=== PATIENT | male | born 1965 | race Two or more races ===

== ENCOUNTER → 2016-11-30 | Outpatient (REF) | payer MEDICARE | LOC: M SFHCCAPE 09:37 | PROVIDERS: ATTEND Physician Assistant | DX: J02.0 Streptococcal pharyngitis (principal) | CPT/HCPCS: 87070; G0463 ==

== ENCOUNTER → 2016-12-02 | Outpatient (REF) | payer MEDICARE ==
[2016-12-02 18:10] LABS: BASO # 0.1 10^3/uL (0.0-0.2); BASO % 0.7 % (0.0-1.0); EOS # 0.2 10^3/uL (0.0-0.50); EOS % 2.2 % (0.0-3.0); IMMATURE GRANULOCYTE % 1.1 % (0-0); LYMPH % 27.2 % (24.0-44.0); MEAN CORPUSCULAR HEMOGLOBIN 29.1 pg (27.0-33.0); MEAN CORPUSCULAR HGB CONC 32.3 g/dl (32.0-36.5); MONO # 0.7 10^3/uL (0.0-0.8); MONO % 6.1 % (0.0-5.0); NEUTROPHILS # 6.9 10^3/uL (1.8-7.7); NEUTROPHILS % 62.7 % (36.0-66.0); PLATELET COUNT, AUTOMATED 366 10^3/uL (150-450); RED CELL DISTRIBUTION WIDTH 12.3 % (11.5-14.5)
[2016-12-02 18:11] LABS: ALBUMIN 3.2 GM/DL (3.2-5.2); ALBUMIN/GLOBULIN RATIO 0.84 (1.00-1.93); ALKALINE PHOSPHATASE 78 U/L (45-117); ALT/SGPT 26 U/L (12-78); ANION GAP 7 MEQ/L (8-16); AST/SGOT 8 U/L (15-37); BILIRUBIN,TOTAL 0.3 MG/DL (0.2-1.0); BLOOD UREA NITROGEN 18 MG/DL (7-18); CALCIUM LEVEL 8.7 MG/DL (8.5-10.1); CARBON DIOXIDE LEVEL 28 MEQ/L (21-32); CHLORIDE LEVEL 104 MEQ/L (98-107); CHOLESTEROL LEVEL 143 MG/DL (<200); CREATININE FOR GFR 0.86 MG/DL (0.70-1.30); FREE T4 1.18 NG/DL (0.76-1.46); GLOMERULAR FILTRATION RATE > 60.0 (>56); GLUCOSE, FASTING 95 MG/DL (70-105); POTASSIUM SERUM 4.5 MEQ/L (3.5-5.1); SODIUM LEVEL 139 MEQ/L (136-145); TRIGLYCERIDES LEVEL 129 MG/DL (<150)
[2016-12-02 18:19] LABS: ADD MORPHOLOGY? NO
== END ==
LOC: M SFHCCAPE 07:14
PROVIDERS: ATTEND Physician Assistant
DX: I10 Essential (primary) hypertension (principal); R73.01 Impaired fasting glucose; Z12.5 Encounter for screening for malignant neoplasm of prostate; Z80.42 Family history of malignant neoplasm of prostate
CPT/HCPCS: 36415; 80053; 80061; 83036; 84439; 84443; 85025; G0103

== ENCOUNTER → 2016-12-07 | Outpatient (REF) | payer MEDICARE ==
[2016-12-07 18:23] LABS: BASO # 0.1 10^3/uL (0.0-0.2); BASO % 0.9 % (0.0-1.0); EOS # 0.2 10^3/uL (0.0-0.50); EOS % 2.1 % (0.0-3.0); IMMATURE GRANULOCYTE % 0.4 % (0-0); LYMPH # 2.7 10^3/uL (1.5-4.5); LYMPH % 25.2 % (24.0-44.0); MEAN CORPUSCULAR HEMOGLOBIN 29.1 pg (27.0-33.0); MEAN CORPUSCULAR HGB CONC 32.7 g/dl (32.0-36.5); MONO # 0.8 10^3/uL (0.0-0.8); MONO % 7.5 % (0.0-5.0); NEUTROPHILS # 6.9 10^3/uL (1.8-7.7); NEUTROPHILS % 63.9 % (36.0-66.0); PLATELET COUNT, AUTOMATED 414 10^3/uL (150-450); RED CELL DISTRIBUTION WIDTH 12.6 % (11.5-14.5); WHITE BLOOD COUNT 10.8 10^3/uL (4.0-10.0)
[2016-12-07 18:58] LABS: VITAMIN B12 LEVEL 358 PG/ML
[2016-12-07 18:59] LABS: FOLATE 15.4 NG/ML
[2016-12-08 08:43] LABS: CONTROL LINE MONO RF C INT CTR LINE PRESENT
== END ==
LOC: M SFHCCAPE 08:36
PROVIDERS: ATTEND Physician Assistant
DX: R53.83 Other fatigue (principal); R05 Cough; I10 Essential (primary) hypertension; F17.210 Nicotine dependence, cigarettes, uncomplicated; Z79.899 Other long term (current) drug therapy
CPT/HCPCS: 82306; 82607; 82746; 85025; 86308; 86663; 86664; 86665; G0463

== ENCOUNTER → 2017-04-05 | Outpatient (CLI) | payer MEDICARE | LOC: M CLY 09:54 | DX: M25.512 Pain in left shoulder (principal) | CPT/HCPCS: 73030; G0463 ==

== ENCOUNTER 2018-03-16 02:49 | Inpatient (IN) | payer MEDICARE ==
[~2018-03-16] VITALS: Ht 177.8 cm; Wt 109.2 kg
[2018-03-16] MEDS ORDERED: lisinopril (03:15)
[2018-03-16] MEDS ORDERED: plavix (03:15)
[2018-03-16 03:28] LABS: BASO # 0.1 10^3/uL (0.0-0.2); BASO % 0.4 % (0.0-1.0); EOS # 0.2 10^3/uL (0.0-0.50); EOS % 0.8 % (0.0-3.0); HEMATOCRIT 45.6 % (42.0-52.0); HEMOGLOBIN 15.6 g/dl (13.5-17.5); LYMPH # 1.6 10^3/uL (1.5-4.5); LYMPH % 8.3 % (24.0-44.0); MEAN CORPUSCULAR HEMOGLOBIN 30.1 pg (27.0-33.0); MEAN CORPUSCULAR HGB CONC 34.2 g/dl (32.0-36.5); MONO # 0.9 10^3/uL (0.0-0.8); MONO % 4.5 % (0.0-5.0); NEUTROPHILS % 85.5 % (36.0-66.0); PLATELET COUNT, AUTOMATED 247 10^3/uL (150-450); RED BLOOD COUNT 5.18 10^6/uL (4.30-6.10); WHITE BLOOD COUNT 19.8 10^3/uL (4.0-10.0)
[2018-03-16] MEDS ORDERED: NS 1,000 ML IV ONE (04:00)
[2018-03-16] MEDS ORDERED: METOCLOPRAMIDE INJ 10MG/2ML VIAL (J2765) IV ONE (04:00)
[2018-03-16] MEDS ORDERED: HYDROMORPHONE HCL 0.5 MG/ 0.5 ML SYRINGE (J1170 PER 1) IV ONE ×2 (04:00→05:30)
[2018-03-16 04:02] LABS: ALBUMIN 3.9 GM/DL (3.2-5.2); ALT/SGPT 27 U/L (12-78); BILIRUBIN,DIRECT 0.2 MG/DL (0.0-0.2); BILIRUBIN,TOTAL 0.7 MG/DL (0.2-1.0); BLOOD UREA NITROGEN 12 MG/DL (7-18); CALCIUM LEVEL 8.6 MG/DL (8.5-10.1); CARBON DIOXIDE LEVEL 26 MEQ/L (21-32); CHLORIDE LEVEL 101 MEQ/L (98-107); CREATININE FOR GFR 0.91 MG/DL (0.70-1.30); GLOMERULAR FILTRATION RATE > 60.0 (>56); GLUCOSE, FASTING 203 MG/DL (70-100); LIPASE 79 U/L (73-393); POTASSIUM SERUM 4.1 MEQ/L (3.5-5.1); SODIUM LEVEL 136 MEQ/L (136-145); TOTAL PROTEIN 6.7 GM/DL (6.4-8.2)
[2018-03-16] MEDS: GASTROGRAFIN SOLUTION 30ML PO SCH ×2 (05:20→05:50)
--- NOTE | 2018-03-16 07:30 | REPVR ---
EXAM: CT Abdomen and Pelvis Without Contrast EXAM DATE/TIME: 03/16/2018 4:20 AM CLINICAL HISTORY: 53 years old, male; Pain; Abdominal pain; Generalized; Additional info: Hernia TECHNIQUE: Axial computed tomography images of the abdomen and pelvis without contrast. All CT scans at this facility use at least one of these dose optimization techniques: automated exposure control; mA and/or kV adjustment per patient size (includes targeted exams where dose is matched to clinical indication); or iterative reconstruction. Coronal and sagittal reformatted images were created and reviewed. COMPARISON: No relevant prior studies available. FINDINGS: Lower thorax: Mild bilateral lower lobe dependent atelectasis and question of minimal infiltrates. There is minimal fibro-atelectatic change in the lingula and right middle lobe. ABDOMEN: Liver: Normal. No mass. Gallbladder and bile ducts: Normal. No calcified stones. No ductal dilation. Pancreas: Normal. No ductal dilation. Spleen: Normal. No splenomegaly. Adrenals: Normal. No mass. Kidneys and ureters: There is a right renal cyst measuring 16 mm. Stomach and bowel: There is colonic diverticulosis without evidence of diverticulitis. Anastomotic suture ring in the distal sigmoid. Mild distention of mid abdominal small bowel segments with normal distal ileum consistent with small bowel obstruction. There is an abrupt point of transition in the anterior right lateral abdomen and is anterior to the distal ascending colon. There is stool in material within the lumen of the preceding small bowel. Appendix: A normal appendix is seen. PELVIS: Bladder: Unremarkable as visualized. Reproductive: Unremarkable as visualized. ABDOMEN and PELVIS: Intraperitoneal space: Trace perihepatic ascites. Bones/joints: Fusion of the left SI joint. Soft tissues: Status post ventral wall hernia repair with mesh centered in the umbilicus. Vasculature: Incidental note of an accessory retroaortic left renal vein. There is minimal atherosclerotic calcification of the abdominal aorta. Lymph nodes: Normal. No enlarged lymph nodes. IMPRESSION: 1. Small bowel obstruction with a point of transition in the lateral right abdomen adjacent to the peritoneal surface anterior to the distal ascending colon or hepatic flexure and is likely an adhesion. 2. Mild bilateral lower lobe dependent atelectasis and question of minimal infiltrates. 3. Status post ventral wall hernia repair with mesh. 4. Trace perihepatic ascites. 5. Colonic diverticulosis without diverticulitis. Electronically signed by: Pete Nolasco On 03/16/2018 07:30:04 AM
[2018-03-16] MEDS ORDERED: NS 1,000 ML IV SCH (08:00)
[2018-03-16] MEDS ORDERED: ONDANSETRON 4MG/2ML VIAL (J2405) IV ONE (08:15)
[2018-03-16] MEDS ORDERED: HYDROMORPHONE HCL 0.5 MG/ 0.5 ML SYRINGE (J1170 PER 1) IV PRN (08:15)
[2018-03-16] MEDS ORDERED: NITR4TASL SL (08:17)
[2018-03-16] MEDS ORDERED: CLOP75TA2 PO (08:17)
[2018-03-16] MEDS ORDERED: ATOR40TA75 PO (08:17)
[2018-03-16] MEDS ORDERED: LISI-542 PO (08:17)
[2018-03-16] MEDS ORDERED: METO1TAB87 PO (08:17)
[2018-03-16] MEDS ORDERED: ASPI81CH32 PO (08:17)
[2018-03-16] MEDS ORDERED: APAP325T4 PO (08:17)
[2018-03-16] MEDS ORDERED: PROMETHAZINE INJ 25 MG/ML VIAL (J2550) IV PRN (09:15)
[2018-03-16] MEDS ORDERED: ONDANSETRON 4MG/2ML VIAL (J2405) IV PRN (09:15)
[2018-03-16] MEDS ORDERED: MORPHINE 4 MG/ML 1ML VIAL/SYRINGE (J2270) IV PRN (09:15)
[2018-03-16] MEDS ORDERED: METOCLOPRAMIDE INJ 10MG/2ML VIAL (J2765) IV PRN (09:15)
--- NOTE | 2018-03-16 09:51 | CR.PDOC ---
General Date of Consultation: Mar 16, 2018 Referring Provider: Brandt Nunes Jr Consultation REASON FOR CONSULTATION/CHIEF COMPLAINT: Abdominal pain/management medical co- morbidities HISTORY OF PRESENT ILLNESS: 53 yo male presents for 1 day history of mid-epigastric abdominal pain started yesterday around 2pm. Describes his pain as dull, non-radiating, no clear modifying factors. Patient states he had an GA last month. He presented to [facility] for chest pain, transferred to [facility] where he had one stent placed. He is in the process of establishing care with Dr. Matson. He endorses multiple hernia repairs with Dr. Garcia, in addition to diverticulitis s/p partial colectomy with ostomy and subsequent reversal. He states he is a smoker, 1ppd >35 years. ALLERGIES: Please see below. HOME MEDICATIONS: Please see below. PAST MEDICAL HISTORY: 1. CAD/GA s/p stent February 2018 2. diverticulitis 3. Nicotine abuse PAST SURGICAL HISTORY: 1. Multiple hernia repairs 2. partial colectomy and colostomy s/p reversal REVIEW OF SYSTEMS: As per HPI. PHYSICAL EXAMINATION: VITAL SIGNS: Please see below. GENERAL APPEARANCE: NAD, lying comfortably in bed HEENT: NC/AT, EOMI, PERRL RESPIRATORY: CTA B/L CARDIOVASCULAR: +S1S2, RRR ABDOMEN: soft, +BS, mid-epigastric/RLQ tenderness, well healed midline surgical scar EXTREMITIES: no edema NEUROLOGICAL: no gross focal deficits PSYCHIATRIC: AAOx3 LABORATORY DATA: Please see below. ASSESSMENT/PLAN: 53 yo male for 1 day history of abdominal pain with PMHx of GA s/p PCI one month ago #abd pain/SBO - as per primary team #CAD/GA - PCI was one month ago - continue ASA/plavix/statin/BB - states he will be establishing care with Dr. Matson #nicotine abuse - counselling provided at bedside - he is interested in nicotine replacement therapy #DVT prophylaxis - mechanical Vital Signs/I&O Vital Signs Date Time Temp Pulse Resp B/P (MAP) Pulse Ox O2 Delivery O2 Flow Rate FiO2 03/16/18 08:15 83 92 Room Air 03/16/18 08:10 18 03/16/18 08:00 167/92 (117) 03/16/18 02:50 97.0 Laboratory Data Labs 24H Laboratory Tests 2 03/16/18 03:22: Immature Granulocyte % (Auto) 0.5, White Blood Count 19.8H, Red Blood Count 5.18 , Hemoglobin 15.6, Hematocrit 45.6, Mean Corpuscular Volume 88.0, Mean Corpuscular Hemoglobin 30.1, Mean Corpuscular Hemoglobin Concent 34.2, Red Cell Distribution Width 12.5, Platelet Count 247, Neutrophils (%) (Auto) 85.5H, Lymphocytes (%) (Auto) 8.3L, Monocytes (%) (Auto) 4.5, Eosinophils (%) (Auto) 0.8, Basophils (%) (Auto) 0.4, Neutrophils # (Auto) 17.0H, Lymphocytes # (Auto) 1.6, Monocytes # (Auto) 0.9H, Eosinophils # (Auto) 0.2, Basophils # (Auto) 0.1, Nucleated Red Blood Cells % (auto) 0.0, Anion Gap 9, Glomerular Filtration Rate > 60.0, Calcium Level 8.6, Aspartate Amino Transf (AST/SGOT) 16, Alanine Aminotransferase (ALT/SGPT) 27, Alkaline Phosphatase 105, Total Bilirubin 0.7, Direct Bilirubin 0.2, Total Protein 6.7, Albumin 3.9, Albumin/Globulin Ratio 1.39, Lipase 79 CBC/BMP Laboratory Tests 03/16/18 03:22 Red Blood Count 5.18, Mean Corpuscular Volume 88.0, Mean Corpuscular Hemoglobin 30.1, Mean Corpuscular Hemoglobin Concent 34.2, Red Cell Distribution Width 12.5, Neutrophils (%) (Auto) 85.5 H, Lymphocytes (%) (Auto) 8.3 L, Monocytes (%) (Auto) 4.5, Eosinophils (%) (Auto) 0.8, Basophils (%) (Auto) 0.4, Neutrophils # (Auto) 17.0 H, Lymphocytes # (Auto) 1.6, Monocytes # (Auto) 0.9 H, Eosinophils # (Auto) 0.2, Basophils # (Auto) 0.1 Allergies Coded Allergies: TAPE (Verified Allergy, Intermediate, PAPER TAPE-BLISTERS,RASH, 05/21/06) Povidone (Verified Allergy, Mild, RAISED SPIRAL SHAPED WHEAL, 06/06/12) Home Medications Scheduled (Aspirin 81 Low Dose) 81 Mg Chw, 81 MG PO DAILY, (Reported) Atorvastatin Calcium (Atorvastatin Calcium) 40 Mg Tab, 40 MG PO QHS, (Reported) Clopidogrel Bisulfate (Clopidogrel) 75 Mg Tab, 75 MG PO DAILY, (Reported) Lisinopril (Lisinopril) 5 Mg Tab, 5 MG PO DAILY, (Reported) Metoprolol Tartrate (Metoprolol Tartrate) 25 Mg Tab, 25 MG PO BID, (Reported) Scheduled PRN Acetaminophen (Apap) 325 Mg Tab, 325 MG PO Q4H PRN for PAIN, (Reported) Nitroglycerin (Nitrostat) 0.4 Mg Subl, 0.4 MG SL Q5MP PRN for CHEST PAIN, (Reported) SHELLY PATIÑO MD Mar 16, 2018 09:51
[2018-03-16 11:05] LABS: CPK CREATINE PHOSPHOKINASE 88 U/L (39-308); MB/CK RELATIVE INDEX 1.59 (< OR =4); TROPONIN I < 0.02 NG/ML (< 0.10)
[2018-03-16 11:30] VITALS: BP 189/111
[2018-03-16] MEDS: ASPIRIN 81 MG CHEW TABLET PO SCH (12:05)
[2018-03-16] MEDS: PANTOPRAZOLE 40MG INJ (PROTONIX) (C9113) IV SCH (12:05)
[2018-03-16] MEDS: NICOTINE 21MG/24HR 1 EA TRANSDERMAL TD SCH (12:06)
[2018-03-16] MEDS: D5W/LR 1,000 ML IV SCH ×2 (12:06→20:44)
[2018-03-16 12:30] VITALS: BP 128/58
[2018-03-16] MEDS: METOPROLOL TART 25 MG TABLET PO SCH ×2 (13:29→20:42)
[2018-03-16] MEDS: CLOPIDOGREL 75 MG TAB PO SCH (13:30)
[2018-03-16 16:00] VITALS: BP 126/80
[2018-03-16 20:00] VITALS: BP 130/60
[2018-03-16] MEDS ORDERED: ATORVASTATIN 20 MG TAB PO SCH (21:00)
[2018-03-17] VITALS: BP 129/58
[2018-03-17] MEDS: D5W/LR 1,000 ML IV SCH ×2 (03:18→10:27)
[2018-03-17 04:15] VITALS: BP 129/65
[2018-03-17 06:53] LABS: HEMATOCRIT 41.5 % (42.0-52.0); HEMOGLOBIN 13.9 g/dl (13.5-17.5); MEAN CORPUSCULAR HEMOGLOBIN 30.1 pg (27.0-33.0); MEAN CORPUSCULAR HGB CONC 33.5 g/dl (32.0-36.5); MEAN CORPUSCULAR VOLUME 89.8 fl (80.0-96.0); PLATELET COUNT, AUTOMATED 208 10^3/uL (150-450); RED BLOOD COUNT 4.62 10^6/uL (4.30-6.10); WHITE BLOOD COUNT 9.9 10^3/uL (4.0-10.0)
[2018-03-17 07:17] LABS: BLOOD UREA NITROGEN 9 MG/DL (7-18); CALCIUM LEVEL 8.1 MG/DL (8.5-10.1); CARBON DIOXIDE LEVEL 26 MEQ/L (21-32); CHLORIDE LEVEL 107 MEQ/L (98-107); CREATININE FOR GFR 0.79 MG/DL (0.70-1.30); GLOMERULAR FILTRATION RATE > 60.0 (>56); GLUCOSE, FASTING 143 MG/DL (70-100); POTASSIUM SERUM 3.9 MEQ/L (3.5-5.1); SODIUM LEVEL 139 MEQ/L (136-145)
[2018-03-17 08:00] VITALS: BP 145/88
--- NOTE | 2018-03-17 08:59 | IPNPDOC ---
Text Note Date of Service The patient was seen on 03/17/18. NOTE Subjective: Patient seen and examined at bedside. No acute overnight events reported. Patient denies abdominal pain. Objective: PHYSICAL EXAMINATION: VITAL SIGNS: Please see below. GENERAL APPEARANCE: NAD, lying comfortably in bed HEENT: NC/AT, EOMI, PERRL, NG tube in place - draining serosanguineous fluid RESPIRATORY: CTA B/L CARDIOVASCULAR: +S1S2, RRR ABDOMEN: soft, +BS, mid-epigastric/RLQ tenderness, well healed midline surgical scar EXTREMITIES: no edema NEUROLOGICAL: no gross focal deficits PSYCHIATRIC: AAOx3 ASSESSMENT/PLAN: 53 yo male for 1 day history of abdominal pain with PMHx of HI s/p PCI one month ago #abd pain/SBO - as per primary team #CAD/HI - PCI was one month ago - continue ASA/plavix/statin/BB - states he will be establishing care with Dr. Matson #nicotine abuse - counselling provided at bedside - he is interested in nicotine replacement therapy #DVT prophylaxis - mechanical VS,Fishbone, I+O VS, Fishbone, I+O Laboratory Tests 03/17/18 06:24 Red Blood Count 4.62, Mean Corpuscular Volume 89.8, Mean Corpuscular Hemoglobin 30.1, Mean Corpuscular Hemoglobin Concent 33.5, Red Cell Distribution Width 12.7, Calcium Level 8.1 L Vital Signs Date Time Temp Pulse Resp B/P (MAP) Pulse Ox O2 Delivery O2 Flow Rate FiO2 03/17/18 04:15 98.4 77 20 129/65 (86) 98 Room Air 03/16/18 10:52 2.0 I&O- Last 24 Hours up to 6 AM 03/17/18 05:59 Intake Total 330 ml Output Total 1525 ml Balance -1195 ml SHELLY PATIÑO MD Mar 17, 2018 08:59
[2018-03-17] MEDS ORDERED: LISINOPRIL 5 MG TAB PO SCH (09:00)
--- NOTE | 2018-03-17 09:50 | REP ---
ABDOMEN SERIES: Four views. HISTORY: Resolve small bowel obstruction. Comparison CT study March 16, 2018. FINDINGS: Upright chest radiograph shows a nasogastric tube in place terminating in the fundus of the stomach. The lungs are somewhat hyperinflated but clear. No free subdiaphragmatic air is seen. Supine and erect views of the abdomen show oral CT contrast throughout a nondistended colon. No dilated small or large bowel loops are seen. There is some prostate calcifications noted. Flank stripes and psoas margins are intact. No significant air fluid level. IMPRESSION: Normal bowel gas pattern. Orally administered CT contrast has passed into the colon. No dilated bowel loops seen. NG tube in the gastric fundus. Electronically Signed by Scottie Chambers MD 03/17/2018 10:16 A
[2018-03-17] MEDS: PANTOPRAZOLE 40MG INJ (PROTONIX) (C9113) IV SCH (10:02)
[2018-03-17] MEDS: NICOTINE 21MG/24HR 1 EA TRANSDERMAL TD SCH (10:02)
[2018-03-17] MEDS: ASPIRIN 81 MG CHEW TABLET PO SCH (10:02)
[2018-03-17 10:03] VITALS: BP 157/82
[2018-03-17] MEDS: METOPROLOL TART 25 MG TABLET PO SCH (10:03)
[2018-03-17] MEDS: CLOPIDOGREL 75 MG TAB PO SCH (10:04)
[2018-03-17 12:00] VITALS: BP 136/79
--- NOTE | 2018-04-01 16:42 | DSES ---
DATE OF ADMISSION: 03/16/2018 DATE OF DISCHARGE: 03/17/2018 PRINCIPAL DIAGNOSIS: Small-bowel obstruction. ASSOCIATED DIAGNOSIS: History of coronary artery disease with myocardial infarction and status post stenting one month ago, and on anticoagulation for this. BRIEF HISTORY OF PRESENT ILLNESS: The patient is a 53-year-old male with a one-day history of severe midepigastric pain radiating to his back with nausea, vomiting, and with no bowel movement. He has had numerous multiple hernia repairs in the past, had a partial colectomy and colostomy, has had this reversed as well in the past, and presents with a classic presentation of a small bowel obstruction on his x-rays. HOSPITAL COURSE SUMMARY: The patient was admitted with the above diagnosis and nasogastric (NG) tube was inserted and improved essentially within 12 hours. His NG tube was removed. He was started on a clear liquid diet and advanced his diet. Essentially, he was progressed rather quickly given the fact that he was a nonoperative candidate given his recent stenting and need for staying on anticoagulation. He was discharged home with instructions to followup with his primary care provider and with Dr. Garcia in 2-3 weeks. DISCHARGE MEDICATIONS: Include his aspirin, atorvastatin, Plavix, lisinopril, metoprolol and nitroglycerin.
== END 2018-03-17 15:55 | disposition home or self-care (01) | DRG 390 ==
LOC: M ED 02:49 → M ED INP 09:05 → M PED 11:50
PROVIDERS: ADMIT Surgery; ATTEND Surgery
DX: K56.50 Intestinal adhesions [bands], unspecified as to partial versus complete obstruction (principal); I25.10 Atherosclerotic heart disease of native coronary artery without angina pectoris; I25.2 Old myocardial infarction; F17.290 Nicotine dependence, other tobacco product, uncomplicated; Z90.49 Acquired absence of other specified parts of digestive tract; Z88.8 Allergy status to other drugs, medicaments and biological substances; Z91.048 Other nonmedicinal substance allergy status; Z79.899 Other long term (current) drug therapy

== ENCOUNTER → 2018-09-05 | Outpatient (REF) | payer MEDICARE ==
[~2018-09-05] MED LIST: APAP325T4 PO; ASPI81CH33 PO; ATOR40TA75 PO; CLOP75TA2 PO; LISI-542 PO; METO1TAB87 PO; NITR4TASL SL; lisinopril; plavix
[2018-09-05 17:38] LABS: ALBUMIN 3.9 GM/DL (3.2-5.2); ALT/SGPT 32 U/L (12-78); BILIRUBIN,TOTAL 0.4 MG/DL (0.2-1.0); BLOOD UREA NITROGEN 14 MG/DL (7-18); CALCIUM LEVEL 8.3 MG/DL (8.5-10.1); CARBON DIOXIDE LEVEL 28 MEQ/L (21-32); CHLORIDE LEVEL 107 MEQ/L (98-107); CHOLESTEROL LEVEL 95 MG/DL (<200); CHOLESTEROL RISK RATIO 2.794 (<5); CREATININE FOR GFR 0.82 MG/DL (0.70-1.30); GLOMERULAR FILTRATION RATE > 60.0 (>56); GLUCOSE, FASTING 125 MG/DL (70-100); HDL CHOLESTEROL 34 MG/DL (>40); LDL CHOLESTEROL 48 MG/DL (<100); NON-HDL-C 61 MG/DL; POTASSIUM SERUM 4.4 MEQ/L (3.5-5.1); SODIUM LEVEL 141 MEQ/L (136-145); TOTAL PROTEIN 6.6 GM/DL (6.4-8.2); TRIGLYCERIDES LEVEL 63 MG/DL (<150)
[2018-09-05 17:47] LABS: BASO # 0.1 10^3/uL (0.0-0.2); BASO % 0.7 % (0.0-1.0); EOS # 0.3 10^3/uL (0.0-0.50); EOS % 2.7 % (0.0-3.0); HEMATOCRIT 44.3 % (42.0-52.0); HEMOGLOBIN 14.6 g/dl (13.5-17.5); LYMPH # 2.4 10^3/uL (1.5-4.5); LYMPH % 22.1 % (24.0-44.0); MEAN CORPUSCULAR HEMOGLOBIN 31.1 pg (27.0-33.0); MEAN CORPUSCULAR VOLUME 94.3 fl (80.0-96.0); MONO # 0.8 10^3/uL (0.0-0.8); MONO % 6.9 % (0.0-5.0); NEUTROPHILS # 7.3 10^3/uL (1.8-7.7); NEUTROPHILS % 67.1 % (36.0-66.0); PLATELET COUNT, AUTOMATED 233 10^3/uL (150-450); WHITE BLOOD COUNT 10.9 10^3/uL (4.0-10.0)
[2018-09-05 17:59] LABS: APPEARANCE, URINE MANUAL TURBID (CLEAR); COLOR, URINE MANUAL YELLOW (YELLOW)
[2018-09-05 18:00] LABS: BILIRUBIN, URINE MANUAL NEGATIVE (NEGATIVE); BLOOD URINE MANUAL NEGATIVE (NEGATIVE); GLUCOSE, URINE (UA) MANUAL NEGATIVE (NEGATIVE); KETONE, URINE MANUAL NEGATIVE (NEGATIVE); LEUKOCYTE ESTERASE, URINE MAN NEGATIVE (NEGATIVE); NITRITE, URINE MANUAL NEGATIVE (NEGATIVE); PROTEIN, URINE MANUAL NEGATIVE (NEGATIVE); UROBILINOGEN, URINE MANUAL NORMAL (NORMAL)
[2018-09-05 19:26] LABS: RBC, URINE NONE SEEN /hpf (0-3); SQUAMOUS EPITHELIAL CELL URINE NONE SEEN /hpf (SMALL AMT); WBC, URINE 0-1 /hpf (0-3)
[2018-09-05 19:27] LABS: AMORPHOUS SEDIMENT, URINE LARGE AMOUNT (NEGATIVE); BACTERIA, URINE NONE SEEN; MUCUS, URINE SMALL AMOUNT (NEGATIVE)
[2018-09-05 19:28] LABS: HYALINE CAST, URINE NONE SEEN /lpf (0-1)
== END ==
LOC: M SFHCCAPE 09:43
PROVIDERS: ATTEND Physician Assistant
DX: R10.2 Pelvic and perineal pain (principal); I10 Essential (primary) hypertension; N50.812 Left testicular pain
CPT/HCPCS: 80053; 80061; 81000; 83036; 84443; 85025; 87086; G0103

== ENCOUNTER → 2018-09-13 | Outpatient (CLI) | payer MEDICARE ==
[~2018-09-13] MED LIST changes: +READI-CAT 2 As Ordered ONE
--- NOTE | 2018-09-13 16:24 | REP ---
Scrotal sonography: History: Left-sided testicular pain. Findings: There is a moderate left-sided hydrocele. A small amount of hydrocele fluid is visible on the right. There is a 7 mm cyst in the head of the epididymis on the left and a 15 mm cyst is seen in the head of the epididymis on the right. There is no evidence of intratesticular mass lesion on either side. Testicular Doppler flow is normal bilaterally. Resistive indices are 0.52 on the right and 0.54 on the left by Doppler. The right testis measures 40 x 26 x 33 mm. Left testicular dimensions are 37 x 28 x 29 mm. Impression: Bilateral hydroceles, left larger than right. Bilateral epididymal cysts, small on the left and 17 mm on the right. No intratesticular mass lesion is seen. Doppler flow is intact. Electronically Signed by Scottie Chambers MD 09/13/2018 04:59 P
--- NOTE | 2018-09-13 16:48 | REP ---
CT ABDOMEN AND PELVIS WITH ORAL CONTRAST, WITHOUT IV CONTRAST: TECHNIQUE: Axial contrast enhanced images from the lung bases to the pubic symphysis using 100 mL Isovue 370 intravenous contrast material with multiplanar reformations. Visualized lung bases demonstrate no infiltrate. The liver is grossly unremarkable as is the gallbladder. There is no definite biliary dilatation. The spleen, adrenals and pancreas are grossly unremarkable. There appear to be a few small cysts in the kidneys. No renal calculi are seen. There is no hydroureteronephrosis. There is no abdominal aortic aneurysm with mild atherosclerotic calcification. There is no adenopathy. There is no free air or free fluid. No bowel wall thickening is seen. Anterior abdominal wall mesh is noted. No pelvic mass is seen. Urinary bladder is grossly unremarkable. There are prostatic calcifications present. There are degenerative changes of the spine. IMPRESSION: No acute abnormalities as described above. Electronically Signed by Demetrio Hussein MD 09/15/2018 10:56 A
== END ==
LOC: M RAD 13:16
PROVIDERS: ATTEND Physician Assistant
DX: N43.3 Hydrocele, unspecified (principal); N50.3 Cyst of epididymis

== ENCOUNTER → 2019-02-15 | Outpatient (REF) | payer MEDICARE ==
[~2019-02-15] MED LIST changes: -READI-CAT 2 As Ordered ONE
== END ==
LOC: M SFHCCAPE 15:59
PROVIDERS: ATTEND Physician Assistant
DX: R76.8 Other specified abnormal immunological findings in serum (principal)

== ENCOUNTER → 2019-02-23 | Outpatient (REF) | payer MEDICARE | LOC: M SFHCCAPE 15:25 | PROVIDERS: ATTEND Physician Assistant | DX: L08.9 Local infection of the skin and subcutaneous tissue, unspecified (principal) | CPT/HCPCS: 87070; 87077; 87186; G0463 ==

== ENCOUNTER → 2019-04-01 | Outpatient (CLI) | payer MEDICARE ==
--- NOTE | 2019-04-01 12:32 | REP ---
RIGHT ANKLE COMPLETE: 04/01/2019. CLINICAL HISTORY: Followup ORIF bimalleolar fracture in January. FINDINGS: No prior studies available. Four views show the two lag screws in the medial malleolus into the distal tibial diametaphysis. Plate and multiple screws fixing a distal fibular fracture. There may also have been a posterior malleolar fracture which is healing in place. Subtalar joints intact. 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 No heel spurs. I do not see fracture lines in the tibia or fibula. IMPRESSION: 1. Status post ORIF with hardware in the distal fibula and medial malleolus. There may been a posterior malleolar fracture healing in place. Fracture lines are not visible in the distal tibia or fibula. 2. No other significant or acute finding. Electronically Signed by Juancarlos Tineo MD 04/01/2019 07:59 P
== END ==
LOC: M RAD 09:16
PROVIDERS: ATTEND Orthopaedic Surgery Sports Medicine
DX: S82.891D Other fracture of right lower leg, subsequent encounter for closed fracture with routine healing (principal); Z96.9 Presence of functional implant, unspecified

== ENCOUNTER → 2019-04-17 | Outpatient (CLI) | payer MEDICARE ==
[2019-04-17 08:34] LABS: HEMATOCRIT 42.3 % (42.0-52.0); HEMOGLOBIN 14.4 g/dl (13.5-17.5); MEAN CORPUSCULAR HEMOGLOBIN 30.5 pg (27.0-33.0); MEAN CORPUSCULAR VOLUME 89.6 fl (80.0-96.0); PLATELET COUNT, AUTOMATED 230 10^3/uL (150-450); RED BLOOD COUNT 4.72 10^6/uL (4.30-6.10); WHITE BLOOD COUNT 11.8 10^3/uL (4.0-10.0)
[2019-04-17 09:34] LABS: BLOOD UREA NITROGEN 14 MG/DL (7-18); CALCIUM LEVEL 8.9 MG/DL (8.5-10.1); CARBON DIOXIDE LEVEL 26 MEQ/L (21-32); CHLORIDE LEVEL 107 MEQ/L (98-107); CHOLESTEROL LEVEL 130 MG/DL (<200); CHOLESTEROL RISK RATIO 4.193 (<5); CREATININE FOR GFR 0.87 MG/DL (0.70-1.30); GLOMERULAR FILTRATION RATE > 60.0 (>56); GLUCOSE, FASTING 208 MG/DL (70-100); HDL CHOLESTEROL 31 MG/DL (>40); LDL CHOLESTEROL 58 MG/DL (<100); NON-HDL-C 99 MG/DL; POTASSIUM SERUM 4.5 MEQ/L (3.5-5.1); SODIUM LEVEL 139 MEQ/L (136-145); TRIGLYCERIDES LEVEL 203 MG/DL (<150)
== END ==
LOC: M LAB 08:05
PROVIDERS: ATTEND Physician Assistant
DX: I25.10 Atherosclerotic heart disease of native coronary artery without angina pectoris (principal)

== ENCOUNTER → 2019-05-03 | Outpatient (REF) | payer MEDICARE | LOC: M SFHCCAPE 15:40 | PROVIDERS: ATTEND Physician Assistant | DX: A04.8 Other specified bacterial intestinal infections (principal) ==

== ENCOUNTER → 2019-05-18 | Outpatient (REF) | payer MEDICARE ==
[2019-05-18 17:03] LABS: BASO # 0.1 10^3/uL (0.0-0.2); BASO % 0.9 % (0.0-1.0); EOS # 0.4 10^3/uL (0.0-0.5); EOS % 3.1 % (0.0-3.0); HEMATOCRIT 46.2 % (42.0-52.0); HEMOGLOBIN 15.5 g/dl (13.5-17.5); LYMPH # 2.8 10^3/uL (1.5-5.0); LYMPH % 23.5 % (24.0-44.0); MEAN CORPUSCULAR HEMOGLOBIN 30.2 pg (27.0-33.0); MEAN CORPUSCULAR HGB CONC 33.5 g/dl (32.0-36.5); MEAN CORPUSCULAR VOLUME 90.1 fl (80.0-96.0); MONO # 0.7 10^3/uL (0.0-0.8); MONO % 5.6 % (0.0-5.0); NEUTROPHILS # 7.8 10^3/uL (1.5-8.5); NEUTROPHILS % 66.1 % (36.0-66.0); PLATELET COUNT, AUTOMATED 249 10^3/uL (150-450); RED BLOOD COUNT 5.13 10^6/uL (4.30-6.10); WHITE BLOOD COUNT 11.7 10^3/uL (4.0-10.0)
== END ==
LOC: M SFHCCAPE 08:38
PROVIDERS: ATTEND Physician Assistant
DX: R73.9 Hyperglycemia, unspecified (principal); I10 Essential (primary) hypertension
CPT/HCPCS: 36415; 83036; 84443; 85025; G0463

== ENCOUNTER → 2019-08-08 | Outpatient (REF) | payer MEDICARE ==
[~2019-08-08] MED LIST changes: +ALBU8.5H INH; +LISI10TA4 PO; +METF500T13 PO
[2019-08-08 17:10] LABS: BASO # 0.1 10^3/uL (0.0-0.2); BASO % 0.9 % (0.0-1.0); EOS # 0.3 10^3/uL (0.0-0.5); EOS % 2.5 % (0.0-3.0); HEMATOCRIT 43.2 % (42.0-52.0); HEMOGLOBIN 14.6 g/dl (13.5-17.5); LYMPH # 2.9 10^3/uL (1.5-5.0); LYMPH % 28.5 % (24.0-44.0); MEAN CORPUSCULAR HEMOGLOBIN 30.9 pg (27.0-33.0); MEAN CORPUSCULAR HGB CONC 33.8 g/dl (32.0-36.5); MEAN CORPUSCULAR VOLUME 91.3 fl (80.0-96.0); MONO # 0.6 10^3/uL (0.0-0.8); MONO % 5.5 % (0.0-5.0); NEUTROPHILS # 6.3 10^3/uL (1.5-8.5); NEUTROPHILS % 62.2 % (36.0-66.0); PLATELET COUNT, AUTOMATED 251 10^3/uL (150-450); RED BLOOD COUNT 4.73 10^6/uL (4.30-6.10); WHITE BLOOD COUNT 10.1 10^3/uL (4.0-10.0)
[2019-08-08 17:29] LABS: HEMOGLOBIN A1c 7.4 %
[2019-08-08 17:47] LABS: ALBUMIN 3.9 GM/DL (3.2-5.2); ALT/SGPT 61 U/L (12-78); BILIRUBIN,TOTAL 0.6 MG/DL (0.2-1.0); BLOOD UREA NITROGEN 15 MG/DL (7-18); CALCIUM LEVEL 8.4 MG/DL (8.5-10.1); CARBON DIOXIDE LEVEL 26 MEQ/L (21-32); CHLORIDE LEVEL 108 MEQ/L (98-107); CHOLESTEROL LEVEL 92 MG/DL (<200); CHOLESTEROL RISK RATIO 2.967 (<5); CREATININE FOR GFR 0.78 MG/DL (0.70-1.30); GLOMERULAR FILTRATION RATE > 60.0 (>56); GLUCOSE, FASTING 110 MG/DL (70-100); HDL CHOLESTEROL 31 MG/DL (>40); LDL CHOLESTEROL 47 MG/DL (<100); NON-HDL-C 61 MG/DL; POTASSIUM SERUM 4.7 MEQ/L (3.5-5.1); SODIUM LEVEL 139 MEQ/L (136-145); TOTAL PROTEIN 6.5 GM/DL (6.4-8.2); TRIGLYCERIDES LEVEL 71 MG/DL (<150)
[2019-08-08 17:50] LABS: MALB URINE SIEMENS 9.9 MG/L
== END ==
LOC: M SFHCCLAY 10:45
PROVIDERS: ATTEND Family Medicine
DX: E11.69 Type 2 diabetes mellitus with other specified complication (principal)
CPT/HCPCS: 80053; 80061; 82043; 83036; 84443; 85025; G0463

== ENCOUNTER → 2019-08-19 | Outpatient (CLI) | payer MEDICARE ==
[~2019-08-19] MED LIST changes: +HYDR-3715 PO
== END ==
LOC: M LABSMTC 09:49
PROVIDERS: ATTEND Anesthesiology
DX: Z03.818 Encounter for observation for suspected exposure to other biological agents ruled out (principal); Z11.59 Encounter for screening for other viral diseases
CPT/HCPCS: C9803; U0003

== ENCOUNTER 2019-08-22 05:56 | Day surgery (SDC) | payer MEDICARE ==
[~2019-08-22] VITALS: Ht 180.3 cm; Wt 110.6 kg
[~2019-08-22 05:56] MED LIST changes: -HYDR-3715 PO
[2019-08-22] MEDS ORDERED: LR 1,000 ML IV SCH (06:00)
[2019-08-22] MEDS ORDERED: BUPIVACAINE HCL 0.25% 30ML VIAL As Ordered ONE (07:16)
[2019-08-22] MEDS ORDERED: ROCURONIUM BROMIDE 50 MG/5 ML VIAL As Ordered ONE ×2 (07:21→08:25)
[2019-08-22] MEDS ORDERED: dexameTHASONE 4 MG/ML 1ML VIAL (J1100 PER 1MG) As Ordered ONE (07:21)
[2019-08-22] MEDS ORDERED: propofoL 200 MG/20 ML VIAL As Ordered ONE ×2 (07:21→07:37)
[2019-08-22] MEDS ORDERED: LIDOCAINE 2% 100MG/5ML SDV (FOR ANES.) As Ordered ONE (07:21)
[2019-08-22] MEDS ORDERED: MIDAZOLAM INJ 2MG/2ML VIAL (J2250 PER 1MG) As Ordered ONE (07:22)
[2019-08-22] MEDS ORDERED: fentaNYL 250 MCG/5 ML INJECTION (J3010) As Ordered ONE (07:22)
[2019-08-22] MEDS ORDERED: LACRILUBE (AKWA TEARS) OPHTH OINT 3.5 GM As Ordered ONE (07:53)
[2019-08-22] MEDS ORDERED: PHENYLephrine HCL 500 MCG/5 ML (100MCG/ML) SYRINGE (J2370) As Ordered ONE (08:11)
[2019-08-22] MEDS ORDERED: ACETAMINOPHEN 1000MG 100ML IV BTL (OFIRMEV) (J0131 PER 10MG) As Ordered ONE (08:25)
[2019-08-22] MEDS ORDERED: ePHEDrine SULFATE 25 MG/5 ML(5MG/ML) SYRINGE As Ordered ONE (08:30)
[2019-08-22] MEDS ORDERED: HYDROmorphone HCL 2 MG/ML 1ML VIAL (J1170) As Ordered ONE (08:38)
[2019-08-22] MEDS ORDERED: SUGAMMADEX SODIUM 500 MG/5 ML VIAL (BRIDION) As Ordered ONE (10:06)
[2019-08-22] MEDS ORDERED: ONDANSETRON 4MG/2ML VIAL As Ordered ONE (10:08)
[2019-08-22] MEDS ORDERED: NORCO, ANEXSIA 5/325MG TABLET (HYDROcodone/ACETAMINOPHEN) PO PRN (11:15)
[2019-08-22] MEDS ORDERED: IBUPROFEN 600MG TAB PO PRN (11:15)
[2019-08-22] MEDS ORDERED: ACETAMINOPHEN TAB 650MG DOSE (2X325MG) PO PRN (11:15)
[2019-08-22] MEDS ORDERED: HYDROMORPHONE HCL 0.5 MG/ 0.5 ML SYRINGE (J1170 PER 1) IV PRN (11:30)
[2019-08-22] MEDS ORDERED: ONDANSETRON 4MG/2ML VIAL IV PRN (11:30)
[2019-08-22] MEDS: NORCO, ANEXSIA 5/325MG TABLET (HYDROcodone/ACETAMINOPHEN) PO PRN ×2 (12:02→12:30)
[2019-08-22] MEDS: fentaNYL 100 MCG/2 ML INJECTION (J3010) IV PRN ×3 (12:06→12:24)
[2019-08-22 14:13] VITALS: BP 160/82
[2019-08-22] MEDS ORDERED: HYDR-3715 PO (15:40)
--- NOTE | 2019-08-28 16:53 | RO ---
DATE OF PROCEDURE: 08/22/2019 PREOPERATIVE DIAGNOSIS: Ventral incisional hernia. POSTOPERATIVE DIAGNOSES: 1. Ventral incisional hernia. 2. Extensive intra-abdominal adhesions. PROCEDURE PERFORMED: Robotic-assisted laparoscopic repair of left lower quadrant incisional hernia with mesh and extensive lysis of adhesions. SURGEON: Dr. Garcia MULTIFOCAL BUTTON GENERATOR: Keke Almanzar NP whose assistance was necessary in management of placement of robotic trocars, change of surgical instruments, insertion of mesh and sutures, and closure of the incisions at the conclusion of the procedure. ANESTHESIA: General. INDICATIONS FOR THE PROCEDURE: Patient is a 54-year-old man who had undergone a partial colectomy and colostomy for diverticular disease about 18 years ago. He subsequently had his colostomy closed, but developed a series of hernias along the midline. These were repaired with a two layer mesh repair back in 2006. He has subsequently developed a small incisional hernia in the left lower quadrant at the site of his old colostomy and is now for a robotic-assisted laparoscopic repair of same. OPERATIVE PROCEDURE: The patient was brought to the operating room and placed on the table in supine position. He was placed under general endotracheal anesthesia. Thromboembolism deterrents (TEDs) sequentials were utilized. The patient's abdomen was prepped and draped in a sterile fashion. 0.25% Marcaine was infiltrated at each of the trocar sites. A short transverse incision was made in the lateral right midabdomen. A Veress needle was inserted and after positive hanging drop test the abdomen was insufflated with carbon dioxide gas. A 5 mm scope was placed through an 8 mm robotic port and advanced through the abdominal wall without difficulty. Initial inspection showed that the patient had extensive adhesions of omentum and bowel to the anterior abdominal wall particularly along the midline where his previous mesh placement had taken place. There was enough clear space on the right side of the abdomen to insert additional trocars. Therefore, a second 8 mm port was placed in the right lower quadrant and a third was placed in the right upper quadrant. The patient was tilted to a slight head down position to level the abdomen. The Seeqpod patient cart was brought into position from the left and the camera port was docked to the midabdominal port. Targeting took place in the mid abdomen and the additional arms were then docked to the remaining ports. A Force bipolar and cauterizing scissor were inserted. I then moved to the control console and proceeded with the operation. There were extensive adhesions of the small bowel and omentum to the anterior abdominal wall. He had a large piece of [place] Dualmesh patch covering the mid abdomen. The procedure to free these adhesions took approximately the first hour and half of the surgery. The adhesions extended all the way from the lower midabdomen up into the upper abdomen. A slow careful approach was taken to these and the bowel was not damaged. After getting past the mesh in the midabdomen only a few adhesions remained in the left lower abdomen. His hernia defect was identified and was somewhat irregular at about 3 cm in diameter. This was lateral to the area of previous mesh placement. The defect was initially closed with a #1-0 Stratafix to close the fascia. A 12 cm round Parietex patch was then applied and centered over this sutured defect. This was Parietex reference code PCO12X and lot number [id number]. The mesh was inserted and centered over the sutured defect. This was tacked in place at the center point with a #2-0 absorbable V-Loc suture. This was carried superiorly to the top of the mesh and then continued around the periphery of the mesh. At least one additional V-Loc suture was required to continue the circumferential suturing of the mesh. Once the mesh had been securely placed, inspection showed no evidence of any bleeding. Inspection of the area of the adhesiolysis showed no evidence of bleeding or bowel injury. The robotic instruments were removed. The abdomen was deflated and the trocars were removed. The skin incisions were closed with buried #4-0 Vicryl and Steri-Strips. Light dressings were applied. The patient tolerated the procedure well without apparent complication. He was awakened in the operating room, extubated and moved to the recovery room in stable condition.
== END 2019-08-22 14:15 | disposition home or self-care (01) ==
LOC: M SDC 05:56
PROVIDERS: ATTEND Surgery
DX: K43.9 Ventral hernia without obstruction or gangrene (principal); K66.0 Peritoneal adhesions (postprocedural) (postinfection); I25.2 Old myocardial infarction; Z98.61 Coronary angioplasty status; J44.9 Chronic obstructive pulmonary disease, unspecified; E11.9 Type 2 diabetes mellitus without complications; F17.218 Nicotine dependence, cigarettes, with other nicotine-induced disorders; Z79.82 Long term (current) use of aspirin; Z79.84 Long term (current) use of oral hypoglycemic drugs; Z79.899 Other long term (current) drug therapy; Z79.51 Long term (current) use of inhaled steroids
CPT/HCPCS: 49329; 49654; C1781; J0131; J1100; J1170; J2250; J2370; J2405; J3010

== ENCOUNTER → 2020-01-23 | Outpatient (REF) | payer MEDICARE ==
[~2020-01-23] MED LIST changes: +HYDR-3715 PO
[2020-01-23 12:04] LABS: BASO # 0.1 10^3/uL (0.0-0.2); BASO % 0.7 % (0.0-1.0); EOS # 0.4 10^3/uL (0.0-0.5); EOS % 2.7 % (0.0-3.0); HEMATOCRIT 49.6 % (42.0-52.0); HEMOGLOBIN 16.2 g/dl (13.5-17.5); LYMPH # 2.3 10^3/uL (1.5-5.0); LYMPH % 17.7 % (24.0-44.0); MEAN CORPUSCULAR HEMOGLOBIN 29.9 pg (27.0-33.0); MEAN CORPUSCULAR HGB CONC 32.7 g/dl (32.0-36.5); MEAN CORPUSCULAR VOLUME 91.5 fl (80.0-96.0); MONO # 0.7 10^3/uL (0.0-0.8); MONO % 5.1 % (0.0-5.0); NEUTROPHILS # 9.7 10^3/uL (1.5-8.5); NEUTROPHILS % 73.2 % (36.0-66.0); PLATELET COUNT, AUTOMATED 261 10^3/uL (150-450); RED BLOOD COUNT 5.42 10^6/uL (4.30-6.10); WHITE BLOOD COUNT 13.2 10^3/uL (4.0-10.0)
[2020-01-23 12:31] LABS: ALBUMIN 3.7 GM/DL (3.2-5.2); ALT/SGPT 37 U/L (12-78); BILIRUBIN,TOTAL 0.3 MG/DL (0.2-1.0); BLOOD UREA NITROGEN 17 MG/DL (7-18); CALCIUM LEVEL 8.9 MG/DL (8.5-10.1); CARBON DIOXIDE LEVEL 28 MEQ/L (21-32); CHLORIDE LEVEL 106 MEQ/L (98-107); CHOLESTEROL LEVEL 183 MG/DL (<200); CHOLESTEROL RISK RATIO 5.083 (<5); CREATININE FOR GFR 0.98 MG/DL (0.70-1.30); GLOMERULAR FILTRATION RATE > 60.0 (>56); GLUCOSE, FASTING 148 MG/DL (70-100); HDL CHOLESTEROL 36 MG/DL (>40); LDL CHOLESTEROL 118 MG/DL (<100); NON-HDL-C 147 MG/DL; POTASSIUM SERUM 4.8 MEQ/L (3.5-5.1); SODIUM LEVEL 139 MEQ/L (136-145); THYROID STIMULATING HORMONE 0.943 uIU/ML (0.358-3.740); TOTAL PROTEIN 6.4 GM/DL (6.4-8.2); TRIGLYCERIDES LEVEL 146 MG/DL (<150)
[2020-01-23 13:04] LABS: MALB URINE SIEMENS 7.9 MG/L; MAU/CREAT RATIO 4.6 MCG/MG (0.0-30.0)
[2020-01-23 13:44] LABS: HEMOGLOBIN A1c 6.4 %
== END ==
LOC: M SFHCCLAY 07:58
PROVIDERS: ATTEND Physician Assistant
DX: E11.69 Type 2 diabetes mellitus with other specified complication (principal); I10 Essential (primary) hypertension; Z12.5 Encounter for screening for malignant neoplasm of prostate; Z23 Encounter for immunization
CPT/HCPCS: 80053; 80061; 82043; 83036; 84443; 85025; 90682; G0008; G0103; G0463

== ENCOUNTER → 2020-02-05 | Outpatient (CLI) | payer MEDICARE ==
--- NOTE | 2020-02-05 08:04 | REP ---
INDICATION: ENCOUNTER FOR SCREENING FOR LUNG CANCER COMPARISON: None. TECHNIQUE: Axial noncontrast images from the thoracic inlet to the upper abdomen using low-dose lung screening technique (LDCT). FINDINGS: Lung orellana demonstrate minimal fibroatelectatic changes primarily along the medial right middle lobe and lingula. There is a 4 mm perifissural nodule along the mid left major fissure (image 61). Remainder of the examination is grossly unremarkable and without suspicious, significant nodule or mass. No effusion. No pneumothorax. IMPRESSION: Lung-RADS category 2. Annual low-dose CT surveillance recommended. <Electronically signed by Justice Silvestre > 02/05/20 0800
== END ==
LOC: M RAD 07:33
PROVIDERS: ATTEND Physician Assistant
DX: Z12.2 Encounter for screening for malignant neoplasm of respiratory organs (principal); Z87.891 Personal history of nicotine dependence

== ENCOUNTER → 2020-02-06 | Outpatient (REF) | payer MEDICARE ==
[2020-02-06 11:48] LABS: APPEARANCE, URINE CLEAR (CLEAR); BACTERIA, URINE AUTO NEGATIVE (NEGATIVE); BILIRUBIN, URINE AUTO NEGATIVE (NEGATIVE); BLOOD, URINE BLOOD NEGATIVE (NEGATIVE); COLOR, URINE YELLOW (YELLOW); GLUCOSE, URINE (UA) AUTO NEGATIVE (NEGATIVE); KETONE, URINE AUTO NEGATIVE (NEGATIVE); LEUKOCYTE ESTERASE, URINE AUTO NEGATIVE (NEGATIVE); MUCUS, URINE SMALL (NEGATIVE); NITRITE, URINE AUTO NEGATIVE (NEGATIVE); PROTEIN, URINE AUTO NEGATIVE (NEGATIVE); RBC, URINE AUTO 0 /HPF (0-3); SPECIFIC GRAVITY URINE AUTO 1.023 (1.002-1.035); SQUAMOUS EPITHELIAL CELL UR AU 0 /HPF (0-6); UROBILINOGEN, URINE AUTO 0.2 mg/dL (0.0-2.0); WBC, URINE AUTO 1 /HPF (0-3)
== END ==
LOC: M SFHCCLAY 08:06
PROVIDERS: ATTEND Physician Assistant
DX: D72.829 Elevated white blood cell count, unspecified (principal); Z79.899 Other long term (current) drug therapy

== ENCOUNTER → 2020-02-06 | Outpatient (CLI) | payer MEDICARE ==
[~2020-02-06] MED LIST changes: +TOPI25CA3 PO
--- NOTE | 2020-02-06 09:13 | REP ---
INDICATION: M54.2 LUMBAGO W/ SCIATICA COMPARISON: None. TECHNIQUE: AP, lateral, bilateral oblique, and coned-down views of the lumbar spine. FINDINGS: Alignment and lordosis maintained. The vertebral bodies are intact and there is no evidence for acute fracture/compression injury or subluxation. Moderate multilevel degenerative changes include osteophytosis, endplate sclerosis and disc space narrowing. Findings most pronounced at L5-S1 and L4-5. No spondylolysis or spondylolisthesis appreciated. IMPRESSION: Early moderate multilevel degenerative changes primarily involving L4 through S1. <Electronically signed by Justice Silvestre > 02/06/20 [id number]
--- NOTE | 2020-02-06 09:14 | REP ---
INDICATION: M54.2 LUMBAGO W/ SCIATICA COMPARISON: None. TECHNIQUE: AP and frog-lateral views of the right and left hip FINDINGS: Generalized age-related changes include subtle increased sclerosis to the acetabulum with marginal spurring and minimal joint space narrowing. No further overt osteoarthritic or significant degenerative changes are appreciated. No evidence for acute or healed injury. Surrounding soft tissues are normal. IMPRESSION: Relatively symmetric mild generalized age-related changes. <Electronically signed by Justice Silvestre > 02/06/20 0911
== END ==
LOC: M CLY 08:28
PROVIDERS: ATTEND Physician Assistant
DX: M16.0 Bilateral primary osteoarthritis of hip (principal); M51.37 Other intervertebral disc degeneration, lumbosacral region; M54.42 Lumbago with sciatica, left side; M54.41 Lumbago with sciatica, right side; G89.29 Other chronic pain; Z79.899 Other long term (current) drug therapy
CPT/HCPCS: 72110; 73502; 81001; 87086; G0463

== ENCOUNTER → 2020-03-14 | Outpatient (CLI) | payer MEDICARE | LOC: M LABSMTC 10:05 | PROVIDERS: ATTEND Anesthesiology | DX: Z01.812 Encounter for preprocedural laboratory examination (principal); Z20.822 Contact with and (suspected) exposure to COVID-19 ==

== ENCOUNTER 2020-03-19 09:43 | Day surgery (SDC) | payer MEDICARE ==
[~2020-03-19] VITALS: Ht 177.8 cm; Wt 108.6 kg
[~2020-03-19 09:43] MED LIST changes: +LIDOCAINE 2% 100MG/5ML SDV (FOR ANES.) As Ordered ONE; +NS 1,000 ML IV ONE; +propofoL 200 MG/20 ML VIAL As Ordered ONE
--- OUTSIDE RECORDS SUMMARY | 2020-03-19 09:48 | CCD ---
Author Author [facility] Organization [facility] Address Unknown Phone Unavailable Care Team Providers Care C Web Developer Name Role Phone PillaiLesvia hunt Unavailable PROBLEMS Type Condition ICD9-CM Code [id number] Code Onset Dates Condition S tatus SNOMED Code Notes Problem Coronary artery disease invo lving ewiiaapaayp coronary artery of ewiiaapaayp heart without angina pectoris I25.10 Active 631401901023 7 Problem Hx of non-ST elevation myocardial infarction (NSTEMI) I25.2 Active 886968754 Problem Chronic prostatitis N41.1 Active 47266505 Problem Cigarette nicotine dependence without complication F17.210 Active 66277206 Problem Lumbago with sciatica, left side M54.42 Active 133207937 Problem Essential hypertension I10 Active 82265674 Problem Lumbago with sciatica, right side M54.41 Active 365851646394044 Problem Other chronic pain G89.29 Active 68864225 Problem Obesity, unspecified E66.9 Active 568357127 Problem Type 2 diabetes mellitus with other specified complication E11.69 Active 31633189 Problem Chronic obstructive pulmonary disease, unspecified COPD ty pe J44.9 Active 67920213 Problem Leukocytosis, unspecified type D72.829 Active 1 87232728 ALLERGIES Allergen (clinical drug ingredient) Drug/Non Drug Allergy do cumented on EMR Reaction Allergy Type Onset Date Status Tape-paper Rash Non Drug Allergy Active IODINE/BETADINE Rash Non Drug Allergy 09/15/2018 Act joby ENCOUNTERS from 1965 to 2020-03-04 Encounter Location Date Provider Diagnosis [facility] [address] [place] [address] Feb Lesvia Pillai Lumbago with sciatica, left side M54.42 ; Essential hypertension I10 ; Lumbago with sciatica, right side M54.41 ; Cigarette nicotine dependence without complication F17.210 ; Other chronic pain G89.29 ; Coronary artery disease involving ewiiaapaayp coronary artery of ewiiaapaayp heart without angina pectoris I25.10 ; Leukocytosis, unspecified type D72.829 ; Type 2 diabetes mellitus with other specified complication E11.69 and Chronic obstructive pulmonary disease, unspecified COPD type J44.9 IMMUNIZATIONS Vaccine Route Administration Date Status Influenza (18 yrs & older) Flublok IM Intramuscular Jan 23, 2020 Administered Influenza (18 yrs & older) Flublok IM Intramuscular Jan 19, 2019 Administered SOCIAL HISTORY Tobacco Use: Social History Observation Description Date Details (start date - stop date) Current Smoker Sex Assigned At : Social History Observation Description Sex Assigned At Unknown Audit Question Answer Notes Total Score: 1 Interpretation: Alcohol Education Language: Question Answer Notes Languages spoken: Algerian Anglican: Question Answer Notes Anglican 33 None Domestic Violence: Question Answer Notes Status: Sexual Hx: Question Answer Notes Had sex in the last 12 months (vaginal, oral, or anal)? Yes Have you ever had an STD? No Prevention Strategies discussed: Other with Women only Use protection? Yes How often? Most of the time Drug and Alcohol Question Answer Notes Total Score: 0 Interpretation: No problems reported Alcohol Screening: Question Answer Notes Did you have a drink containing alcohol in the past year? Ye s Points 1 Interpretation Negative How often did you have six or more drinks on one occas ion in the past year? Never (0 points) How many drinks did you have on a typica l day when you were drinking in the past year? 1 or 2 (0 points) How often did you have a drink containing alcohol in t he past year? Monthly or less (1 point) BMI Care Goal Follow-Up Question Answer Notes Above Normal BMI Follow-Up Giving encouragement to exercise Tobacco Use: Question Answer Notes Are you a: current smoker Patient counseled on the dangers of tobacco use and urged to quit: 11/30/2016 How many cigarettes a day do you smoke? 11-20 Are you interested in quitting? Thinking about quitting Counseled the patient on smoking cessation, education provid ed 05/18/2019 REASON FOR REFERRAL No Information VITAL SIGNS Weight 238 lbs lbs Feb, Height 5'11" in Feb, BMI 33.19 kg/m2 Feb, Heart Rate 76 /min Feb, Respiratory Rate 18 /min Feb, Temperature 98.7 degrees Fahrenheit Feb, Oximetry 98%ra Feb, Blood pressure systolic 128 mm Hg Feb, Blood pressure diastolic 75 mm Hg Feb, MEDICATIONS Medication SIG (Take, Route, Frequency, Duration) Notes Start Da te End Date Status Lancets - as directed three times daily for 30 days Active Aspir-81 81 MG 1 tablet Orally Once a day Active Metoprolol Tartrate 25 MG 1 tablet with food Orally Twice a day for 30 Days Active Lisinopril 10 MG 1 tablet Orally Once a day for 30 Days Active Topiramate 25 MG 1 tablet Orally QHS for 30 Days 03 Feb, 020 Active Alcohol Swabs 70 % as directed three times daily for 30 days Active Lancing Device - as directed three times daily for 90 day(s) Active ProAir HFA 108 (90 Base) MCG/ACT 1 puff as needed Inha lation every 4 hrs for 30 Days Active Glucometer as directed three times daily for 30 Days Active Simvastatin 40 MG 1 tablet in the evening Orally Once a day for 30 da y(s) Active Blood Glucose Test - as directed In Vitro three times daily for 30 Da ys Active APAP 325 MG 2 tablets as needed Orally every 6 hrs Not-Taking Metformin HCl 500 MG 1 tablet with a meal Orally Twice daily for 90 day(s) Active Cyclobenzaprine HCl 5 MG 1 tablet as needed Orally Three times a day May, Not-Taking PROCEDURES No Information RESULTS No Results REASON FOR VISIT 2 wk follow up MEDICAL (GENERAL) HISTORY Type Description Date Medical History Diverticulitis Medical History Impaired Fasting Blood Sugar Medical History Hypertension Medical History DDD Medical History Ventral hernia Medical History NSTEMI 02/15/2018 [facility];NSTEMI S/P [place] to proximal-mid LCx 02/2018. Medical History H. pylori 02/2019 Medical History diabetes mellitus type 2 Surgical History Partial colon resection- with ostomy 200 2 Surgical History Hernia repair x 2 at [facility] 2002,2004 Surgical History Back surgery- L5 S1 2000 Surgical History cardiac stent placed - Mar 2018 Surgical History ostomy reversal 2001 Surgical History right ankle repair 2018 Hospitalization History surgeries Hospitalization History Cardiac cath [facility] 02/15/18 Hospitalization History [facility] SBO 03/16/18-03/17/18 Goals Section No Information Health Concerns No Information MEDICAL EQUIPMENT No Information MENTAL STATUS No Information FUNCTIONAL STATUS No Information ASSESSMENTS Encounter Date Diagnosis Assessment Notes Treatment Notes Treatm ent Clinical Notes Feb, Lumbago with sciatica, left side (ICD-10 - M54.4 2) Feb, Essential hypertension (ICD-10 - I10) Feb, Lumbago with sciatica, right side (ICD-10 - M54. 41) Feb, Cigarette nicotine dependenc e without complication (ICD-10 - F17.210) Patient advised to stop smoking. Discussed financial gain from not purchasing cigarettes. Patient is not interested in smoking cessation at this time. Reports he is "too stressed" to stop smoking at this time. He will notify our office elect pursue this further in the future. Feb, Other chronic pain (ICD-10 - G89.29) Feb, Coronary artery disease invo lving ewiiaapaayp coronary artery of ewiiaapaayp heart without angina pectoris (ICD-10 - I25.10) Patient education was given. ADiscussed importance of taking medication as prescribed. Advised patient to call and reschedule missed cardiology follow-up. Patient reports understanding. Feb, Leukocytosis, unspecified type (ICD-10 - D72.829 ) Reviewed elevated white blood cell count. Patient denies signs or symptoms. Consider hematology consultation. Patient refuses at this time. Reports he may consider after March and he has a different insurance. We will evaluate urinalysis. Discussed wings and symptoms to seek immediate medical attention for. Patient reports understanding and is agreement with plan. Feb, Type 2 diabetes mellitus wit h other specified complication (ICD-10 - E11.69) I carefully reviewed the importance of tight glucose control with the patient. I explained the long-term complications of poorly controlled diabetes - including (but not limited to) kidney failure, coronary artery disease, vision loss, loss of limb, chronic infection. Target A1c of <7.0% (or <6.5%) was discussed. Need to adhere to recommendation for at least annual opthalmology evaluation, recom mended vaccinations. DIABETES - CARE PLAN/SELF MANAGEMENT: Your hemoglobin A1c today is: ABOVE 7% BELOW 7%. This should be 7% or less, for some people it is more appropriate reduce this to 6.5% or less. You ARE meeting treatment goals for your diabetes. It is important to continue with a diet that is low in simple sugars, and get some form of exercise most days of the week. Please continue the medications listed above, implement any changes recommended by your provider. A dilated retinal exam with an gemologist should be performed annually, foot exams should be performed at each of your follow-up appointments, for most people this is every 3 months. Continue to monitor your blood glucose as directed, record these numbers in a log, be sure to bring this to each of your appointments. Feb, Chronic obstructive pulmonar y disease, unspecified COPD type (ICD- 10 - J44.9) Patient advised to stop smoking. PLAN OF TREATMENT Medication Medication Name Sig Start Date Stop Date Metoprolol Tartrate 25 MG 1 tablet with food Orally Twice a day for 30 Days Topiramate 25 MG 1 tablet Orally QHS for 30 Days Feb, Aspir-81 81 MG 1 tablet Orally Once a day Blood Glucose Test - as directed In Vitro three times daily for 30 Days Lisinopril 10 MG 1 tablet Orally Once a day for 30 Days Glucometer as directed three times daily for 30 Days Alcohol Swabs 70 % as directed three times daily for 30 days Lancing Device - as directed three times daily for 90 day(s) Metformin HCl 500 MG 1 tablet with a meal Orally Twice daily for 90 day(s) ProAir HFA 108 (90 Base) MCG/ACT 1 puff as needed Inha lation every 4 hrs for 30 Days Lancets - as directed three times daily for 30 days Simvastatin 40 MG 1 tablet in the evening Orally Once a day for 30 day(s) Treatment Notes Assessment Notes Clinical Notes Cigarette nicotine dependence without complication Patient advised to stop smoking. Discussed financial gain from not purchasing cigarettes. Patient is not interested in smoking cessation at this time. Reports he is "too stressed" to stop smoking at this time. He will notify our office elect pursue this further in the future. Coronary artery disease involving ewiiaapaayp coronary artery of ewiiaapaayp heart without angina pectoris Patient education was given. ADiscussed importance of taking medication as prescribed. Advised patient to call and reschedule missed cardiology follow-up. Patient reports understanding. Leukocytosis, unspecified type Reviewed elevated white blood cell count. Patient denies signs or symptoms. Consider hematology consultation. Patient refuses at this time. Reports he may consider after March and he has a different insurance. We will evaluate urinalysis. Discussed wings and symptoms to seek immediate medical attention for. Patient reports understanding and is agreement with plan. Type 2 diabetes mellitus with other specified complication I carefully reviewed the importance of tight glucose control with the patient. I explained the long-term complications of poorly controlled diabetes - including (but not limited to) kidney failure, coronary artery disease, vision loss, loss of limb, chronic infection. Target A1c of <7.0% (or <6.5%) was discussed. Need to adhere to recommendation for at least annual opthalmology evaluation, recommended vaccinations. DIABETES - CARE PLAN/SELF MANAGEMENT: Your hemoglobin A1c today is: ABOVE 7% BELOW 7%. This should be 7% or less, for some people it is more appropriate reduce this to 6.5% or less. You ARE meeting treatment goals for your diabetes. It is important to continue with a diet that is low in simple sugars, and get some form of exercise most days of the week. Please continue the medications listed above, implement any changes recommended by your provider. A dilated retinal exam with an gemologist should be performed annually, foot exams should be performed at each of your follow-up appointments, for most people this is every 3 months. Continue to monitor your blood glucose as directed, record these numbers in a log, be sure to bring this to each of your appointments. Chronic obstructive pulmonary disease, unspecified COPD type Patient advised to stop smoking. Treatment Notes Test Name Order Date FEDERICO SPINE LS COMPLETE 2020-03-04 FEDERICO HIP COMPLETE (AP/LAT) 2020-03-04 URINE CULTURE 2020-03-04 UA URINALYSIS 2020-03-04 Future Test Test Name Order Date CBC with Differential [id number] Next Appt Details 4 Weeks, prn Reason: Provider Name:Lesvia Pillai, 2020-03 08:00:00 AM, [address], [place], [address], Insurance Providers Payer Name Payer Address Payer Phone Insured Name Patient Relati onship to Insured Coverage Start Date Coverage End Date MEDICARE Part A and B [facility] [id number] [place] [id number] MISSAEL ALCANTARA self
--- OUTSIDE RECORDS SUMMARY | 2020-03-19 09:48 | CCD ---
Author Author [facility] Organization [facility] Address Unknown Phone Unavailable Care Team Providers Care Embroidery Operator Name Role Phone Lesvia Pillai Unavailable PROBLEMS Type Condition ICD9-CM Code [id number] Code Onset Dates Condition S tatus SNOMED Code Notes Problem Coronary artery disease invo lving burns paiute coronary artery of burns pai[place] heart without angina pectoris I25.10 Active 388928793051 7 Problem Hx of non-ST elevation myocardial infarction (NSTEMI) I25.2 Active 366763121 Problem Chronic prostatitis N41.1 Active 82306526 Problem Cigarette nicotine dependence without complication F17.210 Active 16747210 Problem Lumbago with sciatica, left side M54.42 Active 227365640 Problem Essential hypertension I10 Active 80910465 Problem Lumbago with sciatica, right side M54.41 Active 432400787252029 Problem Other chronic pain G89.29 Active 30775818 Problem Obesity, unspecified E66.9 Active 830209241 Problem Type 2 diabetes mellitus with other specified complication E11.69 Active 52356114 Problem Chronic obstructive pulmonary disease, unspecified COPD ty pe J44.9 Active 17940942 Problem Leukocytosis, unspecified type D72.829 Active 1 39783660 ALLERGIES Allergen (clinical drug ingredient) Drug/Non Drug Allergy do cumented on EMR Reaction Allergy Type Onset Date Status Tape-paper Rash Non Drug Allergy Active IODINE/BETADINE Rash Non Drug Allergy 09/15/2018 Act joby ENCOUNTERS from 1965 to 2020-02-15 Encounter Location Date Provider Diagnosis [facility] [address] [place] [address] Jan Lesvia Pillai Essential hypertension I10 ; Cigarette n icotine dependence without complication F17.210 ; Coronary artery disease involving burns paiute coronary artery of burns paiute heart without angina pectoris I25.10 ; Type 2 diabetes mellitus with other specified complication E11.69 ; Chronic obstructive pulmonary disease, unspecified COPD type J44.9 ; Screening PSA (prostate specific antigen) Z12.5 ; Colon cancer screening Z12.11 ; Encounter for screening for lung cancer Z12.2 ; Encounter for vaccination Z23 and Patient cannot afford medications Z59.6 IMMUNIZATIONS Vaccine Route Administration Date Status Influenza [...] Education Language: Question Answer Notes Languages spoken: Tongan Scientology: Question Answer Notes Scientology 33 None Domestic Violence: Question Answer Notes [...] Counseled the patient on smoking cessation, [facility] 05/18/2019 REASON FOR REFERRAL No Information VITAL SIGNS Weight 235 lbs lbs Jan, Height 5'11" in Jan, BMI 32.77 kg/m2 Jan, Heart Rate 69 /min Jan, Respiratory Rate 18 /min Jan, Temperature 99.2 degrees Fahrenheit Jan, Oximetry 98%ra Jan, Blood pressure systolic 146 mm Hg Jan, Blood pressure diastolic 90 mm Hg Jan, MEDICATIONS Medication SIG (Take, Route, Frequency, Duration) [...] tablet Orally QHS for 30 Days Feb, 020 Active Alcohol Swabs 70 % [...] Three times a day May, Not-Taking PROCEDURES from 1965 to 2020-02-15 Procedure Date Ordered Result Body Site Immunization: Flublok Quadrivalent (18 years & older) 0.5mL IM (Influenza) 2020-01-23 N/A RESULTS No Results REASON FOR VISIT 3 month follow up after labs MEDICAL (GENERAL) HISTORY Type Description Date Medical History Diverticulitis Medical History Impaired Fasting Blood Sugar Medical History Hypertension Medical History DDD Medical History Ventral hernia Medical History NSTEMI 02/15/2018 [facility]I S/[facility] [place] to proximal-mid LCx 02/2018. Medical History H. pylori 02/2019 Medical History diabetes mellitus type 2 Surgical History Partial colon resection- with ostomy 200 2 Surgical History Hernia repair x 2 at [facility] 2002,2004 Surgical History Back surgery- L5 S1 2000 Surgical History cardiac stent placed - Mar 2018 Surgical History ostomy reversal 2001 Surgical History right ankle repair 2019 Hospitalization History surgeries Hospitalization History Cardiac cath [facility] 02/15/18 Hospitalization History [facility] 03/16/18-03/17/18 Goals Section No Information Health Concerns No Information MEDICAL EQUIPMENT No Information MENTAL STATUS No Information FUNCTIONAL STATUS No Information ASSESSMENTS Encounter Date Diagnosis Assessment Notes Treatment Notes Treatm ent Clinical Notes Jan, Essential hypertension (ICD-10 - I10) Patient education was given. Discussed importance of compliance with medication. Patient has been unable to obtain medications this point secondary to financial constraints. Discussed ADOR $4 prescription medication list for 30 days. Prescription sent to [facility] pharmacy. Jan, Cigarette nicotine dependenc e without complication (ICD-10 - F17.210) Patient advised to stop smoking. Discussed financial gain from not purchasing cigarettes. Patient is not interested in smoking cessation at this time. Reports he is "too stressed" to stop smoking at this time. He will notify our office elect pursue this further in the future. Jan, Coronary artery disease invo lving burns paiute coronary artery of burns pai[place] heart without angina pectoris (ICD-10 - I25.10) Patient education was given. Atorvastatin stopped and simvastatin started secondary to financial difficulty and decrease costs of simvastatin at [facility]. Discussed importance of taking medication as prescribed. Patient in agreement to call and reschedule missed follow-up with cardiology. Jan, Type 2 diabetes mellitus wit h other specified complication (ICD-10 - E11.69) Labs drawn today. We discussed that [facility] has free metformin and lancets/lancing devices. Prescription sent. There. He is requesting a new glucometer and glucose testing strips, which she feels his insurance will cover at [facility]. Sent. Jan, Chronic obstructive pulmonar y disease, unspecified COPD type (ICD- 10 - J44.9) Patient advised to stop smoking. Jan, Screening PSA (prostate specific antigen) (ICD-1 0 - Z12.5) I discussed the relative risks, benefits and limitations of PSA testing to screen for prostate cancer. Patient expressed an understanding of the possibility of a "falsely normal" result and a "falsely positive" result. He understands that a normal test does not exclude the presence of prostate cancer. Jan, Colon cancer screening (ICD-10 - Z12.11) Jan, Encounter for screening for lung cancer (ICD-10 - Z12.2) Jan, Encounter for vaccination (ICD-10 - Z23) Patient Educated with: FLU Vaccine, Inactivated [id number] (FLU Vaccine, Inactivated [id number].pdf) Patient will call and check on shingrix vaccination insurance coverage. Reports he is UTD with Tetanus and pneumococcal-Received in [place] approximately 5-6 years ago. Jan, Patient cannot afford medications (ICD-10 - Z59. 6) Discussed alternative pharmacy as noted above. Telephone encounter sent to medicare insurance specialist-Rosario Kaba regarding follow-up with patient. PLAN OF TREATMENT Medication Medication Name Sig [...] day(s) Treatment Notes Assessment Notes Clinical Notes Essential hypertension Patient education was given. Discussed importance of compliance with medication. Patient has been unable to obtain medications this point secondary to financial constraints. Discussed ADOR $4 prescription medication list for 30 days. [facility]. Cigarette nicotine dependence without complication Patient advised to stop smoking. Discussed financial gain from not purchasing cigarettes. Patient is not interested in smoking cessation at this time. Reports he is "too stressed" to stop smoking at this time. He will notify our office elect pursue this further in the future. Coronary artery disease involving burns paiute coronary artery of burns [place] heart without angina pectoris Patient education was given. Atorvastatin stopped and simvastatin started secondary to financial difficulty and decrease costs of simvastatin at [facility]. Discussed importance of taking medication as prescribed. Patient in agreement to call and reschedule missed follow-up with cardiology. Type 2 diabetes mellitus with other specified complication Labs drawn today. We discussed that [facility] has free metformin and lancets/lancing devices. Prescription sent. There. He is requesting a new glucometer and glucose testing strips, which she feels his insurance will cover at [facility]. Sent. Chronic obstructive pulmonary disease, unspecified COPD type Patient advised to stop smoking. Screening PSA (prostate specific antigen) I discussed the relative risks, benefits and limitations of PSA testing to screen for prostate cancer. Patient expressed an understanding of the possibility of a "falsely normal" result and a "falsely positive" result. He understands that a normal test does not exclude the presence of prostate cancer. Encounter for vaccination Patient Educated with: FLU V accine, Inactivated [id number] (FLU Vaccine, Inactivated [id number]) Patient will call and check on shingrix vaccination insurance coverage. Reports he is UTD with Tetanus and pneumococcal-Received in [place] approximately 5-6 years ago. Patient cannot afford medications Discus sed alternative pharmacy as noted above. Telephone encounter sent to medicare insurance specialist-Rosario Kaba regarding follow- up with patient. Next Appt Details 2 Weeks, prn Reason: Provider Name:Lesvia Pillai, 2020-03 08:00:00 AM, [place], [address], Insurance Providers Payer Name Payer Address Payer Phone Insured Name Patient Relati onship to Insured Coverage Start Date Coverage End Date MEDICARE Part A and B [facility] [id number] [id number] [phone] MISSAEL ALCANTARA self
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
--- OUTSIDE RECORDS SUMMARY | 2020-03-19 09:49 | CCD | Continuity of Care Document ---
Author Author [facility] Organization Unknown Address [address], [address] [place] [address] Phone [phone] Care Team Providers Care Cardiac Rehabilitation Specialist Name Role Phone Lesvia Pillai P.A.-C AUTM AUTM Unavailable Problems Active Problems Provider Date Essential hypertension Benjamin Garcia M.D. Onset: 9 Social History Type Date Description Comments Sex Unknown ETOH Use Rarely Tobacco Use Start: Unknown 1 PPD X3 YRS Recreational Drug Use Denies Drug Use Allergies, Adverse Reactions, Alerts Active Allergies Reaction Severity Comments Date Betadine BLISTER,RASH 05/30/2018 Tape BLISTER Paper 05/30/2018 Medications Active Medications SIG Qnty Indications Ordering Provide r Date Aspirin [address] 1 every day Unknown Metoprolol Succinate ER 25mg Tablets ER 24HR 1 twice a day Unknown Atorvastatin Calcium 40mg Tablets 1 by mouth every night at bedtime Unknown Lisinopril 5mg Tablets 1 by mouth every day Unknown Tylenol 325mg Tablets 2 tabs by mouth as needed Unknown Metformin HCL 500mg Tablets Take One Tablet By Mouth Every Day With A Meal Unknown Albuterol Sulfate HFA 108(90Base) mcg/Act Aerosol Inhale One puff By Mouth Every 4 Hours as Needed Unknown Immunizations Description No Information Available Vital Signs Date Vital Result Comment 01/30/2020 2:05pm BP Systolic 132 mmHg BP Diastolic 82 mmHg Height 70 inches 5'10" Weight 238.12 lb BMI (Body Mass Index) 34.2 kg/m2 [place] Body Weight 166 lb Weight 108.014 kg BSA (Body Surface Area) 2.25 m2 09/04/2019 8:57am BP Systolic 140 mmHg BP Diastolic 80 mmHg Height 70 inches 5'10" Weight 242.00 lb BMI (Body Mass Index) 34.7 kg/m2 [place] Body Weight 166 lb Weight 109.771 kg BSA (Body Surface Area) 2.26 m2 Results Test Acquired Date Facility Test Result H/L Range Note Laboratory test finding 08/22/2019 [facility] [address] [place] [address] [phone] Bedside Glucose 145 mg/dL High 70-105 Procedures Date Code Description Status 08/22/2019 18779 Laparoscopic Incisional Hernia W / Mesh, Reducible Completed Medical Devices Description No Information Available Encounters Type Date Location Provider Dx Diagnosis Office Visit 09/04/2019 9:00a [facility] Marshal johnson NP K43.2 Incisional hernia without obstruction or gangrene Z48.89 Encounter for other specifie d surgical aftercare Assessments Date Code Description Provider 09/04/2019 K43.2 Incisional hernia without obstru ction or gangrene Marshal Trinh NP 09/04/2019 Z48.89 Encounter for other specified bell rgical aftercare Marshal Trinh NP 08/22/2019 K43.2 Incisional hernia without obstru ction or gangrene Benjamin Garcia M.D. Plan of Treatment No Information Available Functional Status Description No Information Available Mental Status Description No Information Available Referrals Refer to Dr Reason for Referral Status Appt Date Benjamin Garcia M.D. COLONOSCOPY Scheduled 01/30/2020 [facility] [address] [place], [place] [address] [phone]
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
--- OUTSIDE RECORDS SUMMARY | 2020-03-19 09:50 | CCD ---
Author Author [facility] Organization [facility] Address Unknown Phone Unavailable Care Team Providers Care Bender Helper Name Role Phone Pierre BENTLEY PA Unavailable Unavailable SYMENOW, G CHRISTOPHER PA Unavailable Unavailable SYMENOW, G CHRISTOPHER PA Unavailable Unavailable SYMENOW, G CHRISTOPHER PA Unavailable Unavailable SYMENOW, G CHRISTOPHER PA Unavailable Unavailable SYMENOW, G CHRISTOPHER PA Unavailable Unavailable SYMENOW, G CHRISTOPHER PA Unavailable Unavailable SYMENOW, G CHRISTOPHER PA Unavailable Unavailable SYMENOW, G CHRISTOPHER PA Unavailable Unavailable SYMENOW, G CHRISTOPHER PA Unavailable Unavailable SYMENOW, G CHRISTOPHER PA Unavailable Unavailable SYMENOW, G CHRISTOPHER PA Unavailable Unavailable SYMENOW, G CHRISTOPHER PA Unavailable Unavailable SYMENOW, G CHRISTOPHER PA Unavailable Unavailable SYMENOW, G CHRISTOPHER PA Unavailable Unavailable SYMENOW, G CHRISTOPHER PA Unavailable Unavailable SYMENOW, G CHRISTOPHER PA Unavailable Unavailable CEDRICK MCALLISTER MD Unavailable Unavailable SHANNAN, L MARLON PA Unavailable Unavailable SHANNAN, L MARLON PA Unavailable Unavailable SHANNAN, L MARLON PA Unavailable Unavailable SHANNAN, L MARLON PA Unavailable Unavailable SHANNAN, L MARLON PA Unavailable Unavailable SHANNAN, L MARLON PA Unavailable Unavailable SHANNAN, L MARLON PA Unavailable Unavailable SHANNAN, L MARLON PA Unavailable Unavailable SHANNAN, L MARLON PA Unavailable Unavailable SHANNAN, L MARLON PA Unavailable Unavailable SHANNAN, L MARLON PA Unavailable Unavailable SHANNAN, L MARLON PA Unavailable Unavailable SHANNAN, L MARLON PA Unavailable Unavailable SHANNAN, L MARLON PA Unavailable Unavailable SHANNAN, L MARLON PA Unavailable Unavailable SHANNAN, L MARLON PA Unavailable Unavailable SHANNAN, L MARLON PA Unavailable Unavailable SHANNAN, L MARLON PA Unavailable Unavailable SHANNAN, L MARLON PA Unavailable Unavailable Symenow, Martha Ashlyn PA Unavailable Unavailable Symenow, Martha Ashlyn PA Unavailable Unavailable Symenow, Martha Ashlyn PA Unavailable Unavailable Symenow, Martha Ashlyn PA Unavailable Unavailable Symenow, Martha Ashlyn PA Unavailable Unavailable Symenow, Martha Ashlyn PA Unavailable Unavailable Symenow, Martha Ashlyn PA Unavailable Unavailable Symenow, Martha Ashlyn PA Unavailable Unavailable Symenow, Martha Ashlyn PA Unavailable Unavailable Symenow, Martha Ashlyn PA Unavailable Unavailable Symenow, Martha Ashlyn PA Unavailable Unavailable Symenow, Martha Ashlyn PA Unavailable Unavailable Symenow, Martha Ashlyn PA Unavailable Unavailable Symenow, Martha Ashlyn PA Unavailable Unavailable Symenow, Martha Ashlyn PA Unavailable Unavailable Symenow, Martha Ashlyn PA Unavailable Unavailable Symenow, Martha Ashlyn PA Unavailable Unavailable Symenow, Martha Ashlyn PA Unavailable Unavailable Symenow, Martha Ashlyn PA Unavailable Unavailable Symenow, Martha Ashlyn PA Unavailable Unavailable Symenow, Martha Ashlyn PA Unavailable Unavailable Symenow, Martha Ashlyn PA Unavailable Unavailable Symenow, Martha Ashlyn PA Unavailable Unavailable Symenow, Martha Ashlyn PA Unavailable Unavailable Symenow, Martha Ashlyn PA Unavailable Unavailable Symenow, Martha Ashlyn PA Unavailable Unavailable Symenow, Martha Ashlyn PA Unavailable Unavailable Symenow, Martha Ashlyn PA Unavailable Unavailable Symenow, Martha Ashlyn PA Unavailable Unavailable Symenow, Martha Ashlyn PA Unavailable Unavailable Symenow, Martha Ashlyn PA Unavailable Unavailable Symenow, Martha Ashlyn PA Unavailable Unavailable Symenow, Martha Ashlyn PA Unavailable Unavailable Symenow, Martha Ashlyn PA Unavailable Unavailable Symenow, Martha Ashlyn PA Unavailable Unavailable Symenow, Martha Ashlyn PA Unavailable Unavailable Dominick, Shirley Marshal Unavailable Unavailable Dominick, Shirley Marshal Unavailable Unavailable Dominick, Shirley Marshal Unavailable Unavailable Dominick, Shirley Marshal Unavailable Unavailable Dominick, Shirley Marshal Unavailable Unavailable Dominick, Shirley Marshal Unavailable Unavailable Dominick, Shirley Marshal Unavailable Unavailable Pulteney, Shirley Marshal Unavailable Unavailable Pillai, Sadie Faustino PA Unavailable Unavailable Pillai, Sadie Faustino PA Unavailable Unavailable Pillai, Sadie Faustino PA Unavailable Unavailable Pillai, Sadie Faustino PA Unavailable Unavailable Pillai, Sadie Faustino PA Unavailable Unavailable Pillai, Sadie Faustino PA Unavailable Unavailable Pillai, Sadie Faustino PA Unavailable Unavailable Pillai, Sadie Faustino PA Unavailable Unavailable Pillai, Sadie Faustino PA Unavailable Unavailable Plilai, Sadie Faustino PA Unavailable Unavailable Pillai, Sadie Faustino PA Unavailable Unavailable Pillai, Sadie Faustino PA Unavailable Unavailable Pillai, Sadie Faustino PA Unavailable Unavailable Pillai, Sadie Faustino PA Unavailable Unavailable Pillai, Sadie Faustino PA Unavailable Unavailable Pillai, Sadie Faustino PA Unavailable Unavailable Pillai, Sadie Faustino PA Unavailable Unavailable Pillai, Sadie Faustino PA Unavailable Unavailable Pillai, Sadie Faustino PA Unavailable Unavailable Pillai, Sadie Faustino PA Unavailable Unavailable Pillai, Sadie Faustino PA Unavailable Unavailable Pillai, Sadie Faustino PA Unavailable Unavailable Pillai, Sadie Faustino PA Unavailable Unavailable Pillai, Sadie Faustino PA Unavailable Unavailable Pillai, Sadie Faustino PA Unavailable Unavailable Pillai, Sadie Faustino PA Unavailable Unavailable Pillai, Sadie Faustino PA Unavailable Unavailable Pillai, Sadie Faustino PA Unavailable Unavailable Pillai, Sadie Faustino PA Unavailable Unavailable Pillai, Sadie Faustino PA Unavailable Unavailable Pillai, Sadie Faustino PA Unavailable Unavailable Pillai, Sadie Faustino PA Unavailable Unavailable Pillai, Sadie Faustino PA Unavailable Unavailable Pillai, Sadie Faustino PA Unavailable Unavailable Pillai, Sadie Faustino PA Unavailable Unavailable Sadie Pillai PA Unavailable Unavailable Sadie Pillai PA Unavailable Unavailable Sadie Pillai PA Unavailable Unavailable Sadie Pillai PA Unavailable Unavailable Sadie Pillai PA Unavailable Unavailable Sadie Pillai PA Unavailable Unavailable Sadie Pillai PA Unavailable Unavailable SUNG, CONCEPCION DO Unavailable +011 SUNG, CONCEPCION DO Unavailable +011 SUNG, CONCEPCION DO Unavailable +011 SUNG, CONCEPCION DO Unavailable +011 SUNG, CONCEPCION DO Unavailable +011 SUNG, CONCEPCION DO Unavailable +011 SUNG, CONCEPCION DO Unavailable +011 SUNG, CONCEPCION DO Unavailable +011 SUNG, CONCEPCION DO Unavailable +011 SUNG, CONCEPCION DO Unavailable +011 SUNG, CONCEPCION DO Unavailable +011 SUNG, CONCEPCION DO Unavailable +011 SUNG, CONCEPCION DO Unavailable +011 Maribel BRAVO MD Unavailable Unavailable SHELLYMaribel MD Unavailable Unavailable SHELLY O ROMELIA CASTELLON Unavailable Unavailable SHELLY O ROMELIA CASTELLON Unavailable Unavailable SHELLY O ROMELIA CASTELLON Unavailable Unavailable SHELLY O ROMELIA CASTELLON Unavailable Unavailable SHELLYMaribel MD Unavailable Unavailable SHELLYMaribel MD Unavailable Unavailable SHELLYMaribel MD Unavailable Unavailable SHELLYMaribel MD Unavailable Unavailable SHELLY O ROMELIA CASTELLON Unavailable Unavailable SHELLYMaribel MD Unavailable Unavailable SHELLY O ROMELIA CASTELLON Unavailable Unavailable SHELLY O ROMELIA CASTELLON Unavailable Unavailable SHELLY O ROMELIA CASTELLON Unavailable Unavailable SHELLYMaribel MD Unavailable Unavailable SHELLY O ROMELIA CASTELLON Unavailable Unavailable SHELLY O ROMELIA CASTELLON Unavailable Unavailable SHELLYMaribel MD Unavailable Unavailable SHELLY O ROMELIA CASTELLON Unavailable Unavailable SHELLY O ROMELIA CASTELLON Unavailable Unavailable SHELLY O ROMELIA CASTELLON Unavailable Unavailable SHELLY O ROMELIA CASTELLON Unavailable Unavailable SHELLYMaribel MD Unavailable Unavailable SHELLY O ROMELIA CASTELLON Unavailable Unavailable SHELLY O ROMELIA CASTELLON Unavailable Unavailable SHELLY, O ROMELIA CASTELLON Unavailable Unavailable Maribel BRAVO MD Unavailable Unavailable Maribel BRAVO MD Unavailable Unavailable Maribel BRAVO MD Unavailable Unavailable Maribel BRAVO MD Unavailable Unavailable Maribel BRAVO MD Unavailable Unavailable Maribel BRAVO MD Unavailable Unavailable Maribel BRAVO MD Unavailable Unavailable Maribel BRAVO MD Unavailable Unavailable Maribel BRAVO MD Unavailable Unavailable Maribel BRAVO MD Unavailable Unavailable Maribel BRAVO MD Unavailable Unavailable Maribel BRAVO MD Unavailable Unavailable Maribel BRAVO MD Unavailable Unavailable Maribel BRAVO MD Unavailable Unavailable MONET MARTIN DO Unavailable Unavailable FRANCISCA SNYDER Unavailable Unavailable DANIA, JOSHUA SHANNEN PA Unavailable Unavailable DANIA, JOSHUA SHANNEN PA Unavailable Unavailable DANIA, JOSHUA SHANNEN PA Unavailable Unavailable DANIA, JOSHUA SHANNEN PA Unavailable Unavailable DANIA, JOSHUA SHANNEN PA Unavailable Unavailable DANIA, JOSHUA SHANNEN PA Unavailable Unavailable DANIA, JOSHUA SHANNEN PA Unavailable Unavailable DANIA, JOSHUA SHANNEN PA Unavailable Unavailable DANIA, JOSHUA SHANNEN PA Unavailable Unavailable DANIA, JOSHUA SHANNEN PA Unavailable Unavailable DANIA, JOSHUA SHANNEN PA Unavailable Unavailable DANIA, JOSHUA SHANNEN PA Unavailable Unavailable DANIA, JOSHUA SHANNEN PA Unavailable Unavailable DANIA, JOSHUA SHANNEN PA Unavailable Unavailable DANIA, JOSHUA SHANNEN PA Unavailable Unavailable DANIA, JOSHUA SHANNEN PA Unavailable Unavailable DANIA, JOSHUA SHANNEN PA Unavailable Unavailable DANIA, JOSHUA SHANNEN PA Unavailable Unavailable DANIA, JOSHUA SHANNEN PA Unavailable Unavailable DANIA, JOSHUA SHANNEN PA Unavailable Unavailable DANIA, JOSHUA SHANNEN PA Unavailable Unavailable Tim Greer MD Unavailable Unavailable Tim Greer MD Unavailable Unavailable Tim Greer MD Unavailable Unavailable Tim Greer MD Unavailable Unavailable Tim Greer MD Unavailable Unavailable Tim Greer MD Unavailable Unavailable Tim Greer MD Unavailable Unavailable Tim Greer MD Unavailable Unavailable Tim Greer MD Unavailable Unavailable Tim Greer MD Unavailable Unavailable Tim Greer MD Unavailable Unavailable Tim Greer MD Unavailable Unavailable Tim Greer MD Unavailable Unavailable Tim Greer MD Unavailable Unavailable Tim Greer MD Unavailable Unavailable Percy, Tim Hemalatha MD Unavailable Unavailable Percy, Tim Hemalatha MD Unavailable Unavailable Percy, Tim Hemalatha MD Unavailable Unavailable Percy, H Hemalatha MD Unavailable Unavailable Percy, Tim Hemalatha MD Unavailable Unavailable Percy, Tim Hemalatha MD Unavailable Unavailable Percy, Tim Hemalatha MD Unavailable Unavailable Percy, Tim Hemalatha MD Unavailable Unavailable Percy, Tim Hemalatha MD Unavailable Unavailable Percy, Tim Carter MD Unavailable Unavailable Re-disclosure Warning The records that you are about to access may contain information from federally-assisted alcohol or drug abuse programs. If such information is present, then the following federally mandated warning applies: This information has been disclosed to you from records protected by federal confidentiality rules (42 CFR part 2). The federal rules prohibit you from making any further disclosure of this information unless further disclosure is expressly permitted by the written consent of the person to whom it pertains or as otherwise permitted by 42 CFR part 2. A general authorization for the release of medical or other information is NOT sufficient for this purpose. The Federal rules restrict any use of the information to criminally investigate or prosecute any alcohol or drug abuse patient.The records that you are about to access may contain highly sensitive health information, the redisclosure of which is protected by Article 27-F of the [facility] Public Health law. If you continue you may have access to information: Regarding HIV / AIDS; Provided by facilities licensed or operated by the [facility] Office of Mental Health; or Provided by the [facility] Office for People With Developmental Disabilities. If such information is present, then the following [facility] mandated warning applies: This information has been disclosed to you from confidential records which are protected by state law. State law prohibits you from making any further disclosure of this information without the specific written consent of the person to whom it pertains, or as otherwise permitted by law. Any unauthorized further disclosure in violation of state law may result in a fine or half-way sentence or both. A general authorization for the release of medical or other information is NOT sufficient authorization for further disc losure. Allergies and Adverse Reactions Type Description Substance Reaction Status Data Source(s ) Tape-paper Tape-paper Tape-paper Rash Active eCW1 ([facility]) IODINE/BETADINE IODINE/BETADINE IODINE/BETADINE Rash Active eCW1 ([facility]) Tape-paper Tape-paper Tape-paper Rash Active eCW1 ([facility]) IODINE/BETADINE IODINE/BETADINE IODINE/BETADINE Rash Active eCW1 ([facility]) Drug allergy povidone-iodine povidone-iodine [facility] Drug allergy soap [facility] Drug allergy [facility] Family History Family Member Name Family Member Gender Family Member Status Date o f Status Description Data Source(s) Unknown Male Problem MEDENT ([facility]) Unknown Male Problem MEDENT ([facility]) Unknown Male Problem MEDENT ([facility]) Encounters Encounter Providers Location Date Indications Data Source(s ) [place] [address] [facility] [address] 02/08/2020 12:00:00 AM EST eCW1 ([facility]) Outpatient [address] [facility] [place] [address] 02/06/2020 12:00:00 AM EST eCW1 ([facility]) [place] [address] [facility] [address] 02/06/2020 12:00:00 AM EST eCW1 ([facility]) [place] [address] [facility] [address] 02/06/2020 12:00:00 AM EST eCW1 ([facility]) Unknown [address] [facility] [place] [address] 01/23/2020 12:00:00 AM EST eCW1 ([facility]) [place] [address] [facility] [address] 01/23/2020 12:00:00 AM EST eCW1 ([facility]) Unknown [address] [facility] [place] [address] 01/23/2020 12:00:00 AM EST eCW1 ([facility]) Unknown [address] [facility] [place] [address] 01/23/2020 12:00:00 AM EST eCW1 ([facility]) Unknown [address] [facility] [place] [address] 12/13/2019 12:00:00 AM EDT eCW1 ([facility]) Outpatient Attender: Ashlyn BEAL Main Office 10/30/2019 02:30:00 PM EDT MEDENT ([facility]) [facility] [address] [facility] [address] 10/23/2019 12:00:00 AM EDT eCW1 [facility] [place] [address] [facility] [address] 09/19/2019 12:00:00 AM EDT eCW1 ([facility]) Office Visit Attender: Marshal Farr/Sabina/Dimas/Reindl 09/04/2019 09:00:00 AM EDT MEDENT ([facility]) [place] [address] [facility] [address] 08/15/2019 12:00:00 AM EDT eCW1 ([facility]) [facility] [address] [facility] [address] 08/15/2019 12:00:00 AM EDT eCW1 [facility]) [place] [address] [facility] [address] 08/08/2019 12:00:00 AM EDT eCW1 [facility]) [facility] [address] [facility] [address] 07/18/2019 12:00:00 AM EDT eCW1 ([facility]) Outpatient Attender: ROMELIA Farr/Sabina/Dimas/Re indl 07/03/2019 10:15:00 AM EDT MEDENT ([facility]) [facility] [place] [address] [facility] [address] 06/19/2019 12:00:00 AM EDT eCW1 ([facility]) [facility] Treasure [place]rosc[place] [address] [place] [address] 06/13/2019 12:00:00 AM EDT eCW1 ([facility]) Outpatient [address] [facility], [facility] [address] 05/18/2019 12:00:00 AM EDT eCW1 ([facility]) Outpatient Attender: Hemalatha Greer MD ER-MOB 05/16/2019 12:45:00 AM EDT [facility] [address] [facility] [address] [place] [address] 05/16/2019 12:00:00 AM EDT eCW1 ([facility]) [facility] [address] [place] [address] 05/11/2019 12:00:00 AM EST eCW1 [facility] [address] [place] [address] 05/03/2019 12:00:00 AM EST eCW1 ([facility]) [facility] [address] [facility] [address] [place] [address] 04/07/2019 12:00:00 AM EST eCW1 ([facility]) Outpatient 04/04/2019 01:40:00 PM EST [facility] Outpatient Attender: Hemalatha Greer MD 03/31/2019 10:20:00 AM EST [facility] [address] [facility] [address] [place] [address] 03/31/2019 12:00:00 AM EST eCW1 ([facility]) [facility] Internal Medicine [address] [facility] [address] [place] [address] 03/31/2019 12:00:00 AM EST eCW1 ([facility]) [facility] [address] [facility] [address] [place] [address] 03/31/2019 12:00:00 AM EST eCW1 ([facility]) [facility] [address] [facility] [address] [place] [address] 03/07/2019 12:00:00 AM EST eCW1 ([facility]) [facility] [address] [facility] [address] [place] [address] 02/28/2019 12:00:00 AM EST eCW1 ([facility]) [facility] [address] [facility] [address] [place] [address] 02/27/2019 12:00:00 AM EST eCW1 ([facility]) [address] [address] 02/23/2019 12:00:00 AM EST eCW1 ([facility]) [address] [address] 02/23/2019 12:00:00 AM EST eCW1 ([facility]) [address] [address] 02/20/2019 12:00:00 AM EST eCW1 ([facility]) [address] [address] 02/20/2019 12:00:00 AM EST eCW1 ([facility]) Outpatient Attender: Hemalatha Greer MD 02/14/2019 01:26:00 PM EST [address] [address] 02/14/2019 12:00:00 AM EST eCW1 ([facility]) [facility] [address] [facility] [address] [place] [address] 02/14/2019 12:00:00 AM EST eCW1 ([facility]) Inpatient Attender: MONET MARTIN DOAttender : MONET MARTIN DOAttender: CEDRICK MCALLISTER MDAttender: Hemalatha Greer MDAdmitter: CEDRICK MCALLISTER MD ER-2WEST 01/22/2019 06:18:00 PM EST - 01/24/2019 12:13:00 PM EST [facility] ospital Patient discharged. Emergency Attender: LEONARDO SNYDERReferrer: Faustino BEAL 01/22/2019 10:53:00 AM EST - 01/22/2019 04:37:00 PM EST [facility] pitak Patient discharged. [address] [address] 01/19/2019 12:00:00 AM EST eCW1 ([facility]) Emergency Attender: MARLON BEAL 05/06 07:33:00 AM EDT - 05/18/2018 09:01:00 AM [facility] Emergency Attender: ZOE BEAL EMERGENCY ROOM- ER 02/15/2018 09:34:00 AM EST - 02/15/2018 01:40:00 PM [facility] Emergency Attender: SHANNEN BEAL EMERGENCY ROOM-ER 07/15/2017 03:50:00 PM EDT - 07/15/2017 04:40:00 PM [facility] Emergency Attender: SHANNEN BEAL 12:54:00 PM EDT - 06/11/2017 01:32:00 PM [facility] Immunizations Vaccine Date Status Description Data Source(s) influenza, recombinant, quadrIvalent,injectable, prese rvative free 01/23/2020 08:05:00 AM EST completed eCW1 ([facility]) influenza, recombinant, quadrIvalent,injectable, prese rvative free 01/23/2020 08:05:00 AM EST completed eCW1 ([facility]) influenza, recombinant, quadrIvalent,injectable, prese rvative free 01/23/2020 08:05:00 AM EST completed eCW1 ([facility]) influenza, recombinant, quadrIvalent,injectable, prese rvative free 01/23/2020 08:05:00 AM EST completed eCW1 ([facility]) influenza, recombinant, quadrIvalent,injectable, prese rvative free 01/23/2020 08:05:00 AM EST completed eCW1 ([facility]) influenza, recombinant, quadrIvalent,injectable, prese rvative free 01/23/2020 08:05:00 AM EST completed eCW1 ([facility]) influenza, recombinant, quadrIvalent,injectable, prese rvative free 01/23/2020 08:05:00 AM EST completed eCW1 ([facility]) influenza, recombinant, quadrIvalent,injectable, prese rvative free 01/23/2020 08:05:00 AM EST completed eCW1 ([facility]) influenza, recombinant, quadrIvalent,injectable, prese rvative free 01/23/2020 08:05:00 AM EST completed eCW1 ([facility]) influenza, recombinant, quadrIvalent,injectable, prese rvative free 01/19/2019 05:11:00 PM EST completed eCW1 ([facility]) influenza, recombinant, quadrIvalent,injectable, prese rvative free 01/19/2019 05:11:00 PM EST completed eCW1 ([facility]) influenza, recombinant, quadrIvalent,injectable, prese rvative free 01/19/2019 05:11:00 PM EST completed eCW1 ([facility]) influenza, recombinant, quadrIvalent,injectable, prese rvative free 01/19/2019 05:11:00 PM EST completed eCW1 ([facility]) influenza, recombinant, quadrIvalent,injectable, prese rvative free 01/19/2019 05:11:00 PM EST completed eCW1 ([facility]) influenza, recombinant, quadrIvalent,injectable, prese rvative free 01/19/2019 05:11:00 PM EST completed eCW1 ([facility]) influenza, recombinant, quadrIvalent,injectable, prese rvative free 01/19/2019 05:11:00 PM EST completed eCW1 ([facility]) influenza, recombinant, quadrIvalent,injectable, prese rvative free 01/19/2019 05:11:00 PM EST completed eCW1 ([facility]) influenza, recombinant, quadrIvalent,injectable, prese rvative free 01/19/2019 05:11:00 PM EST completed eCW1 ([facility]) influenza, recombinant, quadrIvalent,injectable, prese rvative free 01/19/2019 05:11:00 PM EST completed eCW1 ([facility]) influenza, recombinant, quadrIvalent,injectable, prese rvative free 01/19/2019 05:11:00 PM EST completed eCW1 ([facility]) Medications Medication Brand Name Start Date Product Form Dose Route Admi nistrative Instructions Pharmacy Instructions Status Indications Reaction Description Data Source(s) topiramate 25 MG Oral Tablet Topiramate 25 MG Topiramate 25 MG 02/08/2020 12:00:00 AM EST 1.0 {tablet} active To piramate 25 MG eCW1 ([facility]) topiramate 25 MG Oral Tablet Topiramate 25 MG Topiramate 25 MG 02/08/2020 12:00:00 AM EST 1.0 {tablet} active To piramate 25 MG eCW1 ([facility]) topiramate 25 MG Oral Tablet Topiramate 25 MG Topiramate 25 MG 02/08/2020 12:00:00 AM EST 1.0 {tablet} active To piramate 25 MG eCW1 ([facility]) topiramate 25 MG Oral Tablet Topiramate 25 MG Topiramate 25 MG 02/08/2020 12:00:00 AM EST 1.0 {tablet} active To piramate 25 MG eCW1 ([facility]) topiramate 25 MG Oral Tablet Topiramate 25 MG Topiramate 25 MG 02/08/2020 12:00:00 AM EST 1.0 {tablet} active To piramate 25 MG eCW1 (Formerly [facility]) 100 mg 01/31/2020 12:00:00 AM EST capsule 90 TAKE ONE CAPSULE BY MOUTH DAILY TAKE ONE CAPSULE BY MOUTH DAILY SOLD: 02/05/2020 [facility] Isopropyl Alcohol 0.7 ML/ML Medicated Pad Alcohol Swabs 70 % Alcohol Swabs 70 % 01/23/2020 12:00:00 AM EST active Alcohol Swabs 70 % eCW1 (Former[facility]) Lancets - Lancets - 01/23/2020 12:00:00 AM EST act joby Lancets - eCW1 (Formerly [facility]) Isopropyl Alcohol 0.7 ML/ML Medicated Pad Alcohol Swabs 70 % Alcohol Swabs 70 % 01/23/2020 12:00:00 AM EST active Alcohol Swabs 70 % eCW1 ([facility]) Isopropyl Alcohol 0.7 ML/ML Medicated Pad Alcohol Swabs 70 % Alcohol Swabs 70 % 01/23/2020 12:00:00 AM EST active Alcohol Swabs 70 % eCW1 ([facility]) Lancing Device - Lancing Device - 01/23/2020 12:00:00 AM EST active Lancing Device - eCW1 ([facility]) Glucometer UNK 01/23/2020 12:00:00 AM EST active Glucometer eCW1 ([facility]) Glucometer UNK 01/23/2020 12:00:00 AM EST active Glucometer eCW1 ([facility]) Simvastatin 40 MG Oral Tablet Simvastatin 40 MG 01/23/2020 12:00:00 AM EST 1.0 {tablet_in_the_evening} active Simvasta tin 40 MG eCW1 ([facility]) Lancing Device - Lancing Device - 01/23/2020 12:00:00 AM EST active Lancing Device - eCW1 ([facility]) Lancing Device - Lancing Device - 01/23/2020 12:00:00 AM EST active Lancing Device - eCW1 ([facility]) Blood Glucose Test - Blood Glucose Test - 01/23/2020 12:00:00 AM EST active Blood Glucose Test - eCW1 ([facility]) Simvastatin 40 MG Oral Tablet Simvastatin 40 MG 01/23/2020 12:00:00 AM EST 1.0 {tablet_in_the_evening} active Simvasta tin 40 MG eCW1 ([facility]) Lancets - Lancets - 01/23/2020 12:00:00 AM EST act joby Lancets - eCW1 ([facility]) Glucometer UNK 01/23/2020 12:00:00 AM EST active Glucometer eCW1 ([facility]) Blood Glucose Test - Blood Glucose Test - 01/23/2020 12:00:00 AM EST active Blood Glucose Test - eCW1 ([facility]) Blood Glucose Test - Blood Glucose Test - 01/23/2020 12:00:00 AM EST active Blood Glucose Test - eCW1 ([facility]) Simvastatin 40 MG Oral Tablet Simvastatin 40 MG 01/23/2020 12:00:00 AM EST 1.0 {tablet_in_the_evening} active Simvasta tin 40 MG eCW1 ([facility]) Lancets - Lancets - 01/23/2020 12:00:00 AM EST act joby Lancets - eCW1 ([facility]) atorvastatin 80 MG Oral Tablet ATORVASTATIN CALCIUM 10/30/2019 1 2:00:00 AM EDT tablet 90 TAKE ONE TABLET BY MOUTH AT BEDT MICKI EVERY NIGHT TAKE ONE TABLET BY MOUTH AT BEDTIME EVERY NIGHT SOLD: 11/15/2019 [facility] 5-325 mg 08/22/2019 12:00:00 AM EDT tablet 12 TAKE ONE TABLET BY MOUTH EVERY 6 HOURS NEEDED FOR MODERATE - SEVERE PAIN AMX=4TABS/DAY TAKE ONE TABLET BY MOUTH EVERY 6 HOURS NEEDED FOR MODERATE - SEVERE PAIN AMX=4TABS/DAY SOLD: 08/22/2019 [facility] Metformin hydrochloride 500 MG Oral Tablet Metformin H Cl 500 MG Metformin HCl 500 MG 06/19/2019 12:00:00 AM EDT active 1 tablet with a meal eCW1 ([facility]) Metformin hydrochloride 500 MG Oral Tablet Metformin H Cl 500 MG Metformin HCl 500 MG 06/19/2019 12:00:00 AM EDT 1.0 {tablet_with_a_meal} active Metformin HCl 500 MG eCW1 ([facility]) Metformin hydrochloride 500 MG Oral Tablet Metformin H Cl 500 MG Metformin HCl 500 MG 06/19/2019 12:00:00 AM EDT 1.0 {tablet_with_a_meal} suspended Metformin HCl 500 MG eCW1 ([facility]) Metformin hydrochloride 500 MG Oral Tablet Metformin H Cl 500 MG Metformin HCl 500 MG 06/19/2019 12:00:00 AM EDT 1.0 {tablet_with_a_meal} active Metformin HCl 500 MG eCW1 ([facility]) 500 mg 06/19/2019 12:00:00 AM EDT tablet 90 TAKE ONE TABLET BY MOUTH EVERY DAY WITH A MEAL TAKE ONE TABLET BY MOUTH EVERY DAY WITH A MEAL SOLD: 020 [facility] Metformin hydrochloride 500 MG Oral Tablet Metformin H Cl 500 MG Metformin HCl 500 MG 06/19/2019 12:00:00 AM EDT active 1 tablet with a meal eCW1 ([facility]) 500 mg 06/19/2019 12:00:00 AM EDT tablet 90 TAKE ONE TABLET BY MOUTH EVERY DAY WITH A MEAL TAKE ONE TABLET BY MOUTH EVERY DAY WITH A MEAL SOLD: 020 [facility] Metformin hydrochloride 500 MG Oral Tablet Metformin H Cl 500 MG Metformin HCl 500 MG 06/19/2019 12:00:00 AM EDT 1.0 {tablet_with_a_meal} active Metformin HCl 500 MG eCW1 ([facility]) Metformin hydrochloride 500 MG Oral Tablet Metformin H Cl 500 MG Metformin HCl 500 MG 06/19/2019 12:00:00 AM EDT 1.0 {tablet_with_a_meal} active Metformin HCl 500 MG eCW1 ([facility]) Metformin hydrochloride 500 MG Oral Tablet Metformin H Cl 500 MG Metformin HCl 500 MG 06/19/2019 12:00:00 AM EDT 1.0 {tablet_with_a_meal} active Metformin HCl 500 MG eCW1 ([facility]) 90 mcg/actuation 05/18/2019 12:00:00 AM EDT HFA aerosol inha ler 8 INHALE ONE PUFF BY MOUTH EVERY 4 HOURS NEEDED INHALE ONE PUFF BY MOUTH EVERY 4 HOURS A S NEEDED SOLD: 05/19/2019 [facility] 200 ACTUAT Albuterol 0.09 MG/ACTUAT Mete red Dose Inhaler [ProAir] ProAir HFA 108 (90 Base) MCG/ACT ProAir HFA 108 (90 Base) MCG/ACT 05/18/2019 12:00:00 AM EDT active 1 puff as needed eCW1 ([facility]) Cyclobenzaprine hydrochloride 5 MG Oral Tablet Cyclobe nzaprine HCl 5 MG Cyclobenzaprine HCl 5 MG 05/18/2019 12:00:00 AM EDT 1.0 {tablet_as_ needed} active Cyclobenzaprine HCl 5 MG eCW1 ([facility]) Cyclobenzaprine hydrochloride 5 MG Oral Tablet Cyclobe nzaprine HCl 5 MG Cyclobenzaprine HCl 5 MG 05/18/2019 12:00:00 AM EDT 1.0 {tablet_as_ needed} active Cyclobenzaprine HCl 5 MG eCW1 ([facility]) Cyclobenzaprine hydrochloride 5 MG Oral Tablet Cyclobe nzaprine HCl 5 MG Cyclobenzaprine HCl 5 MG 05/18/2019 12:00:00 AM EDT 1.0 {tablet_as_ needed} suspended Cyclobenzaprine HCl 5 MG eCW1 ([facility]) 5 mg 05/18/2019 12:00:00 AM EDT tablet 15 TAKE ONE TABLET BY MOUTH THREE TIMES A DAY NEEDED TAKE ONE TABLET BY MOUTH THREE TIMES A DAY NEEDED S OLD: 05/19/2019 [facility] Cyclobenzaprine hydrochloride 5 MG Oral Tablet Cyclobe nzaprine HCl 5 MG Cyclobenzaprine HCl 5 MG 05/18/2019 12:00:00 AM EDT 1.0 {tablet_as_ needed} active Cyclobenzaprine HCl 5 MG eCW1 ([facility]) Cyclobenzaprine hydrochloride 5 MG Oral Tablet Cyclobe nzaprine HCl 5 MG Cyclobenzaprine HCl 5 MG 05/18/2019 12:00:00 AM EDT active 1 tablet as needed eCW1 ([facility]) 200 ACTUAT Albuterol 0.09 MG/ACTUAT Mete red Dose Inhaler [ProAir] ProAir HFA 108 (90 Base) MCG/ACT ProAir HFA 108 (90 Base) MCG/ACT 05/18/2019 12:00:00 AM EDT 1.0 {puff_as_needed} active Pro Air HFA 108 (90 Base) MCG/ACT eCW1 ([facility]) Cyclobenzaprine hydrochloride 5 MG Oral Tablet Cyclobe nzaprine HCl 5 MG Cyclobenzaprine HCl 5 MG 05/18/2019 12:00:00 AM EDT 1.0 {tablet_as_ needed} suspended Cyclobenzaprine HCl 5 MG eCW1 ([facility]) 200 ACTUAT Albuterol 0.09 MG/ACTUAT Mete red Dose Inhaler [ProAir] ProAir HFA 108 (90 Base) MCG/ACT ProAir HFA 108 (90 Base) MCG/ACT 05/18/2019 12:00:00 AM EDT 1.0 {puff_as_needed} active Pro Air HFA 108 (90 Base) MCG/ACT eCW1 ([facility]) 200 ACTUAT Albuterol 0.09 MG/ACTUAT Mete red Dose Inhaler [ProAir] ProAir HFA 108 (90 Base) MCG/ACT ProAir HFA 108 (90 Base) MCG/ACT 05/18/2019 12:00:00 AM EDT 1.0 {puff_as_needed} suspended P roAir HFA 108 (90 Base) MCG/ACT eCW1 ([facility]) Cyclobenzaprine hydrochloride 5 MG Oral Tablet Cyclobe nzaprine HCl 5 MG Cyclobenzaprine HCl 5 MG 05/18/2019 12:00:00 AM EDT 1.0 {tablet_as_ needed} suspended Cyclobenzaprine HCl 5 MG eCW1 ([facility]) 12 HR Guaifenesin 600 MG Extended Release Oral Tablet [Mucinex] Mucinex 600 MG Mucinex 600 MG 05/18/2019 12:00:00 AM EDT 1.0 {tablet_as_needed} active Mucinex 600 MG eCW1 (Formerly [facility]) Cyclobenzaprine hydrochloride 5 MG Oral Tablet Cyclobe nzaprine HCl 5 MG Cyclobenzaprine HCl 5 MG 05/18/2019 12:00:00 AM EDT 1.0 {tablet_as_ needed} suspended Cyclobenzaprine HCl 5 MG eCW1 ([facility]) 200 ACTUAT Albuterol 0.09 MG/ACTUAT Mete red Dose Inhaler [ProAir] ProAir HFA 108 (90 Base) MCG/ACT ProAir HFA 108 (90 Base) MCG/ACT 05/18/2019 12:00:00 AM EDT 1.0 {puff_as_needed} active Pro Air HFA 108 (90 Base) MCG/ACT eCW1 ([facility]) Cyclobenzaprine hydrochloride 5 MG Oral Tablet Cyclobe nzaprine HCl 5 MG Cyclobenzaprine HCl 5 MG 05/18/2019 12:00:00 AM EDT 1.0 {tablet_as_ needed} suspended Cyclobenzaprine HCl 5 MG eCW1 ([facility]) 200 ACTUAT Albuterol 0.09 MG/ACTUAT Mete red Dose Inhaler [ProAir] ProAir HFA 108 (90 Base) MCG/ACT ProAir HFA 108 (90 Base) MCG/ACT 05/18/2019 12:00:00 AM EDT 1.0 {puff_as_needed} active Pro Air HFA 108 (90 Base) MCG/ACT eCW1 ([facility]) Cyclobenzaprine hydrochloride 5 MG Oral Tablet Cyclobe nzaprine HCl 5 MG Cyclobenzaprine HCl 5 MG 05/18/2019 12:00:00 AM EDT active 1 tablet as needed eCW1 ([facility]) Cyclobenzaprine hydrochloride 5 MG Oral Tablet Cyclobe nzaprine HCl 5 MG Cyclobenzaprine HCl 5 MG 05/18/2019 12:00:00 AM EDT 1.0 {tablet_as_ needed} suspended Cyclobenzaprine HCl 5 MG eCW1 ([facility]) 200 ACTUAT Albuterol 0.09 MG/ACTUAT Mete red Dose Inhaler [ProAir] ProAir HFA 108 (90 Base) MCG/ACT ProAir HFA 108 (90 Base) MCG/ACT 05/18/2019 12:00:00 AM EDT active 1 puff as needed eCW1 ([facility]) 200 ACTUAT Albuterol 0.09 MG/ACTUAT Mete red Dose Inhaler [ProAir] ProAir HFA 108 (90 Base) MCG/ACT ProAir HFA 108 (90 Base) MCG/ACT 05/18/2019 12:00:00 AM EDT 1.0 {puff_as_needed} active Pro Air HFA 108 (90 Base) MCG/ACT eCW1 ([facility]) 200 ACTUAT Albuterol 0.09 MG/ACTUAT Mete red Dose Inhaler [ProAir] ProAir HFA 108 (90 Base) MCG/ACT ProAir HFA 108 (90 Base) MCG/ACT 05/18/2019 12:00:00 AM EDT 1.0 {puff_as_needed} active Pro Air HFA 108 (90 Base) MCG/ACT eCW1 ([facility]) Cyclobenzaprine hydrochloride 5 MG Oral Tablet Cyclobe nzaprine HCl 5 MG Cyclobenzaprine HCl 5 MG 05/18/2019 12:00:00 AM EDT 1.0 {tablet_as_ needed} suspended Cyclobenzaprine HCl 5 MG eCW1 ([facility]) Cyclobenzaprine hydrochloride 5 MG Oral Tablet Cyclobe nzaprine HCl 5 MG Cyclobenzaprine HCl 5 MG 05/18/2019 12:00:00 AM EDT 1.0 {tablet_as_ needed} suspended Cyclobenzaprine HCl 5 MG eCW1 ([facility]) Cyclobenzaprine hydrochloride 5 MG Oral Tablet Cyclobe nzaprine HCl 5 MG Cyclobenzaprine HCl 5 MG 05/18/2019 12:00:00 AM EDT 1.0 {tablet_as_ needed} suspended Cyclobenzaprine HCl 5 MG eCW1 ([facility]) Cyclobenzaprine hydrochloride 5 MG Oral Tablet Cyclobe nzaprine HCl 5 MG Cyclobenzaprine HCl 5 MG 05/18/2019 12:00:00 AM EDT 1.0 {tablet_as_ needed} suspended Cyclobenzaprine HCl 5 MG eCW1 ([facility]) Lisinopril 10 MG Oral Tablet Lisinopril 04/13/2019 12:00:00 AM EST ORAL active MEDENT ([facility]) Enoch - Enoch - 02/27/2019 12:00:00 AM EST active as directed eCW1 ([facility]) 800-160 mg 02/27/2019 12:00:00 AM EST tablet 20 TAKE ONE TABLET BY MOUTH TWICE A DAY FOR 10 DAYS TAKE ONE TABLET BY MOUTH TWICE A DAY FOR 10 DAYS SOLD: 02/27/2019 [facility] Sulfamethoxazole 800 MG / Trimethoprim 1 60 MG Oral Tablet [Bactrim] Bactrim DS 800-160 MG Bactrim DS 800-160 MG 02/27/2019 12:00:00 AM EST active 1 tablet eCW1 ([facility]) 10 mg 02/22/2019 12:00:00 AM EST tablet 30 TAKE ONE TABLET BY MOUTH EVERY DAY TAKE ONE TABLET BY MOUTH EVERY DAY SOLD: 02/22/2019 [facility] Omeprazole 20 MG Delayed Release Oral Capsule Omeprazole 20 MG 02/22/2019 12:00:00 AM EST active 1 capsul e 30 minutes before morning meal eCW1 ([facility]) Metronidazole 500 MG Oral Tablet Metronidazole 500 MG 2018 12:00:00 AM EST active 1/2 tablet eCW1 ( [facility]) 25 mg 02/22/2019 12:00:00 AM EST tablet 60 TAKE ONE TABLET BY MOUTH TWICE A DAY WITH FOOD TAKE ONE TABLET BY MOUTH TWICE A DAY WITH FOOD SOLD: 02/22/2019 [facility] 500 mg 02/22/2019 12:00:00 AM EST tablet 28 TAKE ONE-HALF TABLET BY MOUTH FOUR TIMES A DAY WITH FOOD FOR 14 DAYS DO NOT DRINK ALCOHOL TAKE ONE-HALF TABLET BY MOUTH FOUR TIMES A DAY WITH FOOD FOR 14 DAYS DO NOT DRINK ALCOHOL SOLD: 02/22/2019 [facility] Doxycycline Monohydrate 100 MG Oral Tablet Doxycycline Monoh ydrate 100 MG 02/22/2019 12:00:00 AM EST active 1 tablet eCW1 ([facility]) 100 mg 02/22/2019 12:00:00 AM EST capsule 28 TAKE ONE CAPSULE BY MOUTH TWICE A DAY FOR 14 DAYS TAKE ONE CAPSULE BY MOUTH TWICE A DAY FOR 14 DAYS SOLD : 02/22/2019 [facility] 75 mg 02/22/2019 12:00:00 AM EST tablet 30 TAKE ONE TABLET BY MOUTH EVERY DAY TAKE ONE TABLET BY MOUTH EVERY DAY SOLD: 02/22/2019 [facility] 10 mg 02/22/2019 12:00:00 AM EST tablet 30 TAKE ONE TABLET BY MOUTH EVERY DAY TAKE ONE TABLET BY MOUTH EVERY DAY SOLD: 06/20/2019 [facility] 25 mg 02/22/2019 12:00:00 AM EST tablet 60 TAKE ONE TABLET BY MOUTH TWICE A DAY WITH FOOD TAKE ONE TABLET BY MOUTH TWICE A DAY WITH FOOD SOLD: 08/03/2019 [facility] 10 mg 02/22/2019 12:00:00 AM EST tablet 30 TAKE ONE TABLET BY MOUTH EVERY DAY TAKE ONE TABLET BY MOUTH EVERY DAY SOLD: 08/03/2019 [facility] 25 mg 02/22/2019 12:00:00 AM EST tablet 60 TAKE ONE TABLET BY MOUTH TWICE A DAY WITH FOOD TAKE ONE TABLET BY MOUTH TWICE A DAY WITH FOOD SOLD: 06/20/2019 [facility] 10 mg 02/22/2019 12:00:00 AM EST tablet 30 TAKE ONE TABLET BY MOUTH EVERY DAY TAKE ONE TABLET BY MOUTH EVERY DAY SOLD: 10/09/2019 [facility] 25 mg 02/22/2019 12:00:00 AM EST tablet 60 TAKE ONE TABLET BY MOUTH TWICE A DAY WITH FOOD TAKE ONE TABLET BY MOUTH TWICE A DAY WITH FOOD SOLD: 10/09/2019 [facility] Bismuth Subsalicylate 262 MG UNK 02/21/2019 12:00:00 AM EST active 2 tablets every 30 minutes to 1 hour as needed eCW1 ([facility]) Clarithromycin 500 MG Oral Tablet Clarithromycin 500 MG 02/05 12:00:00 AM EST active 1 tablet eCW1 ([facility]) 20 mg 02/20/2019 12:00:00 AM EST capsule,delayed release (DR/EC) 28 TAKE ONE CAPSULE BY MOUTH TWICE A DAY 30 MINUTES BEFORE A MEAL TAKE ONE CAPSULE BY MOUTH TWICE A DAY 30 MINUTES BEFORE A MEAL SOLD: 02/22/2019 [facility] Omeprazole 20 MG Delayed Release Oral Capsule Omeprazole 20 MG 02/20/2019 12:00:00 AM EST suspended Omepr azole 20 MG eCW1 ([facility]) 500 mg 02/20/2019 12:00:00 AM EST capsule 56 TAKE TWO CAPSULES BY MOUTH TWICE A DAY FOR 14 DAYS TAKE TWO CAPSULES BY MOUTH TWICE A DAY FOR 14 DAYS DELICIA [facility] Omeprazole 20 MG Delayed Release Oral Capsule Omeprazole 20 MG 02/20/2019 12:00:00 AM EST active 1 capsul e 30 minutes before morning meal eCW1 ([facility]) Amoxicillin 500 MG Oral Tablet Amoxicillin 500 MG 02/20/2019 12:00: 00 AM EST active 2 tablets eCW1 ([facility]) 5-325 mg 01/24/2019 12:00:00 AM EST tablet 48 TAKE TWO TABLETS BY MOUTH EVERY 4 HOURS NEEDED MAXIMUM DAILY DOSE = 12 TABLETS TAKE TWO TABLETS BY MOUTH EVERY 4 HOURS NEEDED MAXIMUM DAILY DOSE = 12 TABLETS SOLD: 01/24/2019 [facility] 40 mg 09/15/2018 12:00:00 AM EDT tablet 90 TAKE ONE TABLET BY MOUTH EVERY DAY TAKE ONE TABLET BY MOUTH EVERY DAY SOLD: 05/13/2019 [facility] 40 mg 09/15/2018 12:00:00 AM EDT tablet 90 TAKE ONE TABLET BY MOUTH EVERY DAY TAKE ONE TABLET BY MOUTH EVERY DAY SOLD: 08/03/2019 [facility] Insurance Providers Payer name Policy type / Coverage type Policy ID Covered green party ID Covered green party's relationship to mar Policy Mar Plan Information MEDICARE [id number] SP [id number] N89 [employer] [id number] S [id number] [place] [id number] S [id number] MCRB [id number] S [id number] N89 MEDICARE [id number] S [id number] N89 MEDICARE C [id number] S [id number] N89 [employer] [id number] S [id number] [place]IC[place] [id number] S [id number] [employer] [id number] S [id number] [place] [id number] S [id number] ANSI-Medicare Part B [id number] ANSI-Medicare Part B [id number] ANSI-Medicare Part B [id number] ANSI-Medicare Part B [id number] ANSI-Medicare Part B [id number] ANSI-Medicare Part B [id number] ANSI-Medicare Part B [id number] [place] Medicare Primary [id number] Self [id number] Medicare (Part B) Medicare Primary [id number] Self [id number] ANSI-Medicare Part B [id number] Medicare (Part B) Medicare Primary [id number] Self [id number] ANSI-Medicare Part B [id number] MEDICARE [id number] Christina [id number] N89 MEDICARE [id number] SP [id number] ANSI-Medicare Part B [id number] ANSI-Medicare Part B [id number] MEDICARE [id number] Christina [id number] A COMMERCIAL GENERIC SVELTE LOPEZ STENT SUBJECT RANDOMIZED Christina SVELTE LOPEZ STENT SUBJECT RANDOMIZED MEDICARE PI PI ANSI-Medicare Part B [id number] [place] [id number] Self [id number] [place] Primary [id number] Self [id number] MEDICARE C [id number] S [id number] A MEDICAID [id number] SP [id number] SELF PAY UNAVAILABLE SP UNAVAILA BLE Problems, Conditions, and Diagnoses Code Display Name Description Problem Type Effective Dates Data Source(s) D72.829 [id number] Leukocytosis, unspecified type Problem 02/06/2020 12:00:00 AM EST eCW1 ([facility]) M54.41 [id number] Lumbago with sciatica, right side Prob gil 02/06/2020 12:00:00 AM EST eCW1 ([facility]) M54.42 [id number] Lumbago with sciatica, left side Problem 02/06/2020 12:00:00 AM EST eCW1 ([facility]) [id number] Patient post percutaneous transluminal c oronary angioplasty Patient post percutaneous transluminal coronary angioplasty Problem 12:00:00 AM EDT MED[facility] ([facility]) [id number] Pure hypercholesterolemia Pure hypercholesterolemia Pr oblem 10/30/2019 12:00:00 AM EDT MED[facility] ([facility]) 74286749 Obstructive sleep apnea syndrome Obstructive sle ep apnea syndrome Problem 10/30/2019 12:00:00 AM EDT [facility] ([facility]) 47259800 Cigarette smoker Cigarette smoker Problem 10/30/2019 12 :00:00 AM EDT [facility] ([facility]) J44.9 COPD - Chronic obstructive pulmonary dis ease Chronic obstructive pulmonary disease, unspecified COPD type Problem 08/08/2019 12:00:00 AM EDT e CW1 ([facility]) E11.69 [id number] Type 2 diabetes mellitus with ot her specified complication Problem 06/19/2019 12:00:00 AM EDT eCW1 ([facility]) E66.9 [id number] Obesity, unspecified Problem 06/19/2019 12:0 0:00 AM EDT eCW1 ([facility]) E11.69 [id number] Type 2 diabetes mellitus with ot her specified complication Problem 06/19/2019 12:00:00 AM EDT eCW1 ([facility]) E66.9 [id number] Obesity, unspecified Problem 06/19/2019 12:0 0:00 AM EDT eCW1 ([facility]) Y99.9 Unspecified external cause status UNSPECIFIED EX TERNAL CAUSE STATUS Diagnosis 05/16/2019 12:45:00 AM EDT [facility] Y92.[address] or not applicable UNSPECIFIED PLACE OR NOT APPLICABLE Diagnosis 05/16/2019 12:45:00 AM EDT [facility] Y93.9 Activity, unspecified ACTIVITY, UNSPECIFIED Diagnosis 05/16/2019 12:45:00 AM T [facility] X58.XXXD Exposure to other specified factors, sub sequent encounter EXPOSURE TO OTHER SPECIFIED FACTORS, SUBSEQUENT EN Diagnosis 05/16/2019 12:45:00 A M [facility] S82.891D Other fracture of right lowe r leg, subsequent encounter for closed fracture with routine healing OTH FRACTURE OF R LOW LEG, SUBS FOR CLOS FX W ROUTN HEAL Diagnosis 05/16/2019 12:45:00 AM EDT [facility] zakiya S99.911A Unspecified injury of right ankle, initi al encounter UNSPECIFIED INJURY OF RIGHT ANKLE, INITIAL ENCOUNTER Diagnosis 02/14/2019 01:26:00 PM ES T [facility] Y92.[address] in unspeci fied non-institutional (private) residence as the place of occurrence of the external cause UNSP PLACE IN [facility] NON-INSTITUT (PRIVATE) RESIDENC Diagnosis 01/22/2019 06:18:00 PM [facility] zakiya W18.09XA Striking against other object with subse quent fall, initial encounter STRIKING AGAINST OTH OBJECT W SUBSEQUENT FALL, INI Diagnosis 06:18:00 PM [facility] F17.200 Nicotine dependence, unspecified, uncomp licated NICOTINE DEPENDENCE, UNSPECIFIED, UNCOMPLICATED Diagnosis 01/22/2019 06:18:00 PM [facility] 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 ATHSCL HEART DISEASE OF [place] CORONARY ARTERY W/O Diagnosis 01/22/2019 06:18:00 PM [facility] E78.5 Hyperlipidemia, unspecified HYPERLIPIDEMIA, UNSPECIFIE D Diagnosis 01/22/2019 06:18:00 PM [facility] I10 Essential (primary) hypertension ESSENTIAL (PRIMARY) H YPERTENSION Diagnosis 01/22/2019 06:18:00 PM [facility] S82.841A Displaced bimalleolar fractu re of right lower leg, initial encounter for closed fracture DISPLACED BIMALLEOLAR FRACTURE OF RIGHT LOWER LEG, INI T Diagnosis 01/22/2019 06:18:00 PM [facility] Y92.[address] in single- family (private) house as the place of occurrence of the external cause UNSP PLACE IN SINGLE-FAMILY (PRIVATE) HO USE ASHA Diagnosis 01/22/2019 10:53:00 AM [facility] X50.1XXA OVEREXERTION FROM PROLONGED STATIC OR AW KWARD POST OVEREXERTION FROM PROLONGED STATIC OR AWKWARD POST Diagnosis 01/22/2019 10:53:00 AM 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 F17.210 Nicotine dependence, cigarettes, uncompl icated NICOTINE DEPENDENCE, CIGARETTES, UNCOMPLICATED Diagnosis 01/22/2019 10:53:00 AM [facility] I10 Essential (primary) hypertension ESSENTIAL (PRIMARY) H YPERTENSION Diagnosis 01/22/2019 10:53:00 AM [facility] Y93.01 Activity, walking, marching and hiking A CTIVITY, WALKING, MARCHING AND HIKING Diagnosis 01/22/2019 10:53:00 AM [facility] l Y99.8 Other external cause status OTHER EXTERNAL CAUSE STATU S Diagnosis 01/22/2019 10:53:00 AM [facility] S82.841A Displaced bimalleolar fractu re of right lower leg, initial encounter for closed fracture DISPLACED BIMALLEOLAR FRACTURE OF RIGHT LOWER LEG, [facility] gnosis 01/22/2019 10:53:00 AM [facility] S99.911A Unspecified injury of right ankle, initi al encounter UNSPECIFIED INJURY OF RIGHT ANKLE, INITIAL ENCOUNTER Diagnosis 01/22/2019 10:53:00 AM [facility] Surgeries/Procedures Procedure Description Date Indications Data Source(s) Immunization: Flublok Quadrivalent (18 years & older) 0.5mL IM (Influenza) 01/23/2020 12:00:00 AM EST eCW1 ([facility]) ECG ROUTINE ECG W/LEAST 12 LDS W/I&R 10/30/2019 12:00: 00 AM EDT MEDENT ([facility]) Laparoscopic Incisional Hernia W/ Mesh, Reducible 08/22/2019 12:00:00 AM EDT MEDENT ([facility]) CMPLX CHRON CARE W/O PT VSIT 07/18/2019 12:00:00 AM ED T eCW1 ([facility]) CMPLX CHRON CARE ADDL 30 MIN 07/18/2019 12:00:00 AM ED T eCW1 ([facility]) PHYSICIAN TELEPHONE EVALUATION 11-20 MIN 06/19/2019 12 :00:00 AM EDT eCW1 ([facility]) STOOL CULTR, BACTERIA, EACH 05/03/2019 12:00:00 AM EST eCW1 ([facility]) Reposition Right Ankle Joint with Internal Fixation Device, Open Approach 01/23/2019 12:00:00 AM EST [facility] RIV4 VACC RECOMBINANT DNA IM 01/19/2019 12:00:00 AM ES T eCW1 ([facility]) Administration of influenza virus vaccine 01/19/2019 1 2:00:00 AM EST eCW1 ([facility]) Results ID Date Data Source [id number] 03/14/2020 10:30:00 AM EST [facility] Name Value Range Interpretation Code Description Data Miranda rce(s) Supporting Document(s) SARS coronavirus 2 RNA Not Detected [facility] [place] This lab was ordered by [facility] and reported by [facility]. ID Date Data Source [id number] 08/22/2019 07:20:00 AM EDT MEDENT ([facility], ) Name Value Range Interpretation Code Description Data Miranda rce(s) Supporting Document(s) Glucose [Mass/volume] in Capillary blood by Glucometer 145 mg/dL 70-105 Above high normal [facility] ([facility], ) ID Date Data Source [id number] 08/19/2019 09:50:00 AM EDT [facility] Name Value Range Interpretation Code Description Data Miranda rce(s) Supporting Document(s) SARS CORONAVIRUS 2 RNA [facility] This lab was ordered by [facility] and reported by [facility]. ID Date Data Source [id number] 08/08/2019 03:15:00 PM EDT [facility] ([facility]) Name Value Range Interpretation Code Description Data Miranda rce(s) Supporting Document(s) Hemoglobin A1c/Hemoglobin.total in Blood 7.4 [facility] ([facility]) ID Date Data Source [id number] 08/08/2019 03:15:00 PM EDT [facility] ([facility] Name Value Range Interpretation Code Description Data Miranda rce(s) Supporting Document(s) Alanine aminotransferase [Enzymatic activity/volume] in Serum or Pl asma 61 [facility] Albumin [Mass/volume] in Serum or Plasma 3.9 [facility] ([facility]) Calcium [Mass/volume] in Serum or Plasma 8.4 [facility] ([facility]) Carbon dioxide, total [Moles/volume] in Serum or Plasma 26 [facility] ([facility]) Chloride [Moles/volume] in Serum or Plasma 108 [facility] ([facility]) Alkaline phosphatase [Enzymatic activity/volume] in Serum or Plasma 9 4 [facility] ([facility]) Protein [Mass/volume] in Serum or Plasma 6.5 [facility] ([facility]) Sodium 139 [facility] Potassium [Moles/volume] in Serum or Plasma 4.7 [facility] ([facility]) Glucose 110 70-100 [facility] Aspartate aminotransferase [Enzymatic activity/volume] in Serum or Plasma 28 [facility] ([facility]) Creatinine For GFR 0.78 [facility] ([facility]) Urea nitrogen [Mass/volume] in Serum or Plasma 15 [facility] ([facility]) ID Date Data Source [id number] 08/08/2019 03:15:00 PM EDT [facility] ([facility]) Name Value Range Interpretation Code Description Data Miranda rce(s) Supporting Document(s) White Blood Count 10.1 4.0-10.0 [facility] ([facility]) Hematocrit 43.2 42.0-52.0 [facility] ([facility]) Hemoglobin 14.6 13.5-17.5 [facility] ([facility]) Red Blood Count 4.73 4.30-6.10 [facility] ([facility]) Platelets 251 150-450 [facility] ID Date Data Source [id number] 06/19/2019 02:14:49 AM EDT eCW1 ([facility]) Name Value Range Interpretation Code Description Data Miranda rce(s) Supporting Document(s) 0.840 THYROID STIMULATING HORMONE eC W1 ([facility]) ID Date Data Source [id number] 06/19/2019 02:14:44 AM EDT eCW1 ([facility]) Name Value Range Interpretation Code Description Data Miranda rce(s) Supporting Document(s) Hemoglobin A1c/Hemoglobin.total in Blood 8.0 HEMOGLOBIN A1c eCW1 ([facility]) ID Date Data Source CBC with Differential 06/19/2019 02:14:39 AM EDT eCW1 ([facility]) Name Value Range Interpretation Code Description Data Miranda rce(s) Supporting Document(s) 5.13 RED BLOOD COUNT eCW1 ([facility]) 15.5 HEMOGLOBIN eCW1 (Replaced by [facility]) 11.7 WHITE BLOOD COUNT eCW1 ([facility]) 30.2 MEAN CORPUSCULAR HEMOGLOBIN eC W1 ([facility]) 33.5 MEAN CORPUSCULAR HGB CONC eCW1 ([facility]) 90.1 MEAN CORPUSCULAR VOLUME eCW1 ( [facility]) 46.2 HEMATOCRIT eCW1 (Replaced by [facility]) 249 PLATELET COUNT, AUTOMATED eCW1 ([facility]) 12.9 RED CELL DISTRIBUTION WIDTH eC W1 ([facility]) 66.1 NEUTROPHILS % eCW1 ([facility]) 23.5 LYMPH % eCW1 ([facility]) 0.9 BASO % eCW1 ([facility]) 7.8 NEUTROPHILS # eCW1 ([facility]) 3.1 EOS % eCW1 ([facility]) 5.6 MONO % eCW1 ([facility]) 0.4 EOS # eCW1 ([facility]) 0.1 BASO # eCW1 ([facility]) 0.7 MONO # eCW1 ([facility]) 2.8 LYMPH # eCW1 ([facility]) ID Date Data Source [id number] 05/19/2019 10:17:00 AM EDT [facility] Exam Number: [id number] OF EXAMINATIO N: 05/16/2019 13:40 EDTORTHO ANKLE COMPLETERIGHT ANKLETECHNIQUE: 4 views were obtained.HISTORY: Follow-up fractureThere is a bimalleolar fracture transfixed with a lateral plate andscrews and 2 medial screws. The ankle joint mortise is anatomicallyaligned. There are signs of complete healing of both the lateral andmedial fractures.IMPRESSION:Healed bimalleolar fracture right ankleElectronically signed in PS360 by: Hemalatha Greer M.D. 05/19/2019 10:10EDT Reported By: - HEMALATHA GREER MD Signed By: HEMALATHA GREER MD Name Value Range Interpretation Code Description Data Miranda rce(s) Supporting Document(s) ID Date Data Source H PYLORI STOOL ANTIGEN 05/03/2019 12:00:00 AM EST eCW1 ([facility]) Name Value Range Interpretation Code Description Data Miranda rce(s) Supporting Document(s) Negative Negative H PYLORI STOOL ANTIGEN eC W1 ([facility]) ID Date Data Source [id number] 01/25/2019 03:33:00 PM EST [facility] Patient: MISSAEL ALCANTARA Observation Rep ort - [facility].VisitID: [id number] [place] [address] [phone], MRegistration Date/Time: 01/22/2019 10:25 Weight:108.8 kg (S). Height/Length:71 inches (S). BMI:33.5 PAST HISTORYMedications:Aspirin 81 Oral (Tablet Chewable 81 mg), daily every AM, last dose yesterday.Lipitor Oral 40 mg, daily every PM, last dose last night.Lisinopril Oral (Tablet 10 mg) 1/2 tablet, daily every AM, last dose yesterday.Metoprolol Tartrate Oral (Tablet 25 mg) 1 tablet, 2x a day, last dose yesterday.Plavix Oral (Tablet 75 mg), daily every AM, last dose yesterday. Allergies:Betadine.(rash)paper tape.(rash). (Electronically signed by Leonardo Snyder PA-C 01/22/2019 20:18) Name Value Range Interpretation Code Description Data Miranda rce(s) Supporting Document(s) ID Date Data Source [id number] 01/25/2019 12:01:00 PM EST [facility] Exam Number: [id number] Reported By: - MIGUEL BLANCAS MD Signed By: MIGUEL BLANCAS MD Name Value Range Interpretation Code Description Data Miranda rce(s) Supporting Document(s) ID Date Data Source [id number] 01/24/2019 06:57:00 PM EST [facility] [address] [id number] SUMMARYPATIENT NAME: MISSAEL ALCANTARA II MR#: [id number] PHYSICIAN: MONET MARTIN DOAUTHOR: Monet Martin DO DATE: 01/22/19 RM#: [id number] DATE: 01/24/19 : 63Summary of HospitalizationReason [facility] Right ankle fractureHospital CourseShe is a 54 years old male with a past medical history significant forhypertension, dyslipidemia, coronary artery disease status post cardiac stentsplacement [facility] had a [facility] fall and patient was found to havebimalleolar fracture of the right ankle in the [facility]. Patient wasadmitted under hospitalist service and orthopaedic surgery consulted. Patienthad open reduction internal fixation of the right ankle fracture on 01/23/19.Patient tolerated surgery without complication. Patient worked with physicaltherapy. On 01/24/19, patient is determined medically stable for discharge withrecommendation to follow with her primary care provider and orthopaedic surgeryat scheduled time.Procedures & Relevant StudiesSurgeriesSurgery Date and Time: 01/23/2019 1030Primary Procedure: ORIF ANKLEStudiesANKLE LIMITEDDATE OF EXAMINATION: 01/23/2019 10:42 ESTTECHNIQUE: 3 views of the right ankle were obtainedIMPRESSION:3 fluoroscopically acquired images of the right ankle were obtainedusing C-arm device in the operating room during an open reductioninternal fixation procedure.Diagnoses (Current Visit)Problem List1. Ankle fractureDiagnoses (Other)Past Pertinent History1. Hypertension2. Sleep apnea3. Tobacco abuse4. Myocardial infarctionPatient's Discharge ConditionVital SignsVital Signs- LastResult Date TimeB/P 116/65 01/24 0834Pulse 71 01/24 0833Pulse Ox 90 01/24 0753Temp 98.7 01/24 0753Resp 16 01/24 0753Patient's Discharge ConditionDischarge Date 01/24/19Discharge Conditon fairDischarge DispositionHomePhysical ExaminationGeneral Appearance afebrile, alert, awake, conversant, Mild distress.Head atraumatic, normocephalicNeck no JVD, suppleCardiovascular regular rate, no murmur, Positive S1 and W2Bsrcmiahveo clear to auscultation, no distressAbdomen soft, non-tender, normal bowel soundsUrinary no bladder distention, no flank painExtremities no edema, Dressing noted around right ankle.Neurological alert, oriented x 3, normal speechPsych/Mental Status mood neutral, normal judgement, normal insightPatient/Family InstructionsPrescriptionsContinue taking these medications:CLOPIDOGREL BISULFATE (PLAVIX*) 75 MG [id number] MILLIGRAM Orally DAILYMETOPROLOL* (Lopressor*) 25 MG [id number] MILLIGRAM Orally TWICE DAILYLISINOPRIL (LISINOPRIL) 5 MG TABLET5 MILLIGRAM Orally DAILYAspirin E.c.* (Aspirin EC*) 81 MG TABLET.DR81 MILLIGRAM Orally DAILYATORVASTATIN (Lipitor*) 40 MG [id number] MILLIGRAM Orally AT BEDTIMEStart taking the following new medications:OXYCODONE\\ACETAMINOPHEN* (Percocet*) 5 MG/325 MG TAB2 TABLET Orally EVERY 4 HOURS, NEEDED as needed for Right ankle repairnot to exceed 12 pills per dayDays = 4 Qty = 48No RefillsDischarge Activity: As tolerated (With walking boot)Discharge diet: 2Gm SodiumFollow-upFollow up with your Primary care physicianOrthopedic at scheduled timeTime spent by provider to complete discharge > 30 minutesCopies ToCopies to Family Provider: FAUSTINO PILLAI SIGNED: 01/30/19 Electronically SignedTIME SIGNED: 1919 MONET MARTIN DO Name Value Range Interpretation Code Description Data Miranda rce(s) Supporting Document(s) ID Date Data Source [id number] 01/24/2019 11:05:00 AM [facility] [place] [id number] NAME: YAWMISSAEL DOWNS II#: [id number] PHYSICIAN: LAURA #: [id number] ADM. DATE: 01/22/19PATIENT : 63 DISCH. DATE: [50}DISCHARGE SUMMARYMedical Discharge PlanPersonal Care InstructionsDischarge Activity: As tolerated (With walking boot)Discharge diet: 2Gm SodiumProblem ListMedical ProblemsAnkle fractureHypertensionMyocardial infarctionSleep apneaTobacco abuseFollow Up CareFollow Up:Follow up with your Primary care physicianOrthopedic at scheduled timeEND ENDDICT: 01/24/19 1105 Electronically SignedTRANS:01/24/19 1105 DOMINIQUE DUMONT BY:DATE S IGNED:01/24/19TIME SIGNED: 1107REPORT COPY TO: Name Value Range Interpretation Code Description Data Miranda rce(s) Supporting Document(s) ID Date Data Source [id number] 01/24/2019 09:51:00 AM EST [facility] Exam Number: [id number] OF EXAMINATIO N: 01/23/2019 10:42 ESTTECHNIQUE: 3 views of the right ankle were obtainedIMPRESSION:3 fluoroscopically acquired images of the right ankle were obtainedusing C-arm device in the operating room during an open reductioninternal fixation procedure.Electronically signed in PS360 by: Felipe Paris M.D. 01/24/20199:44 EST Reported By: Gloria PARIS M.D. Signed By: Héctor PARIS M.D. Name Value Range Interpretation Code Description Data Miranda rce(s) Supporting Document(s) ID Date Data Source [id number] 01/24/2019 09:13:00 AM EST [facility] [address] [address]BYTHI PROGRESS NOTEPATIENT NAME: MISSAEL ALCANTARA IIATTENDING PHYSICIAN: HOSPITALISTAUTHOR: Herzog CASTELLON,Louie. DATE: 01/22/19 MR#: [id number] NOTE DATE: 01/24/19 RM#: [id number] TIME: 914 : 64SubjectiveCC/Hx Present IllnessPain right ankleEvents Since Last EntryHe is up in a chair this morning he is comfortable. He has voided and ispassing flatus. Tolerating oral intake. No particular complaints at this timeother than some minor burning in the area above the fracture.ObjectiveExamGeneral Appearance no acute distress, afebrile, alert, awake, conversantAdditional notesHis dressing has been loosened. His neurocirc ulatory status is intact.Assessment/PlanProblem List1. Ankle fractureAdditional NotesInstructed his nurse to apply an impervious dressing and then apply the fixedankle walking boot that was ordered. He can be discharged home today to follow-up in the orthopedic clinic in 2 weeks for staple removal. He is to remainnonweightbearing. And he agreed to that plan.Resuscitation status Full codePlan discussed with patientDATE SIGNED: 01/24/19 Electronically SignedTIME SIGNED: 914 HEMALATHA GREER MD Name Value Range Interpretation Code Description Data Miranda rce(s) Supporting Document(s) ID Date Data Source [id number] 01/24/2019 06:26:00 AM EST [facility] Name Value Range Interpretation Code Description Data Miranda rce(s) Supporting Document(s) MAGNESIUM 1.9 mg/dL 1.6-2.6 N [facility] Please note the reference range change for Magnesiumeffective 01/12/19 ID Date Data Source [id number] 01/24/2019 06:26:00 AM EST [facility] Name Value Range Interpretation Code Description Data Miranda rce(s) Supporting Document(s) GLU 147 mg/dL 70-110 H [facility] Patients taking Sulfasalazine may have f alsely depressedGlucose levels. Patients taking Sulfapyridine may havefalsely elevated Glucose levels. Patients should be drawnfor Glucose before the initial administration of eitherdrug. BUN 13 mg/dL 7-23 [facility] CRE 0.884 mg/dL 0.500-1.300 [facility] GFR > 60 mL/min [facility] CHLORIDE 105 mmol/L 99-110 [facility] NA 140 mmol/L 136-147 [facility] POTASSIUM 4.5 mmol/L 3.5-5.1 [facility] TCO2 28 mmol/L 20-33 [facility] ANION GAP 11.5 10.0-20.0 [facility] CA 7.8 mg/dL 8.3-10.7 [facility] ID Date Data Source [id number] 01/24/2019 05:42:00 AM EST [facility] Name Value Range Interpretation Code Description Data Miranda rce(s) Supporting Document(s) WBC 14.14 x10E3/uL 4.0-10.5 [facility] RBC 4.26 x10E6/uL 4.70-6.00 [facility] Hemoglobin 12.6 g/dL 14.0-18.0 [facility] Hematocrit 38.7 % 42.0-52.0 [facility] MCV 90.8 fL 81.0-99.0 [facility] MCH 29.6 pg 27.0-31.0 [facility] MCHC 32.6 g/dL 32.7-35.6 [facility] RDW 12.8 % 11.5-14.0 [facility] Platelet count 200 x10E3/uL 150-450 [facility] ital MPV 10.8 fl 6.9-9.5 H [facility] Neutrophils 74.0 % 34-64 H [facility] Lymphocytes 13.9 % 25-45 [facility] Monocytes 9.8 % 1.7-10.6 [facility] Eosinophils 1.9 % 0.4-7.0 [facility] Basophils 0.2 % 0.1-2.0 N [facility] Imm. Gran. 0.2 % 0.1-2.0 N [facility] Abs. Neutro. 10.5 x10E3/uL 1.2-7.6 [facility] Abs. Lymph. 2.0 x10E3/uL 1.0-3.5 N [facility] Abs. [place]. 1.4 x10E3/uL 0.1-1.0 H [facility] Abs. Eosin. 0.3 x10E3/uL 0.1-0.7 N [facility] Abs. Baso. 0.0 x10E3/uL 0.0-0.1 N [facility] Abs. Imm. Gran. 0.0 x10E3/uL 0.0-0.1 [facility] ID Date Data Source [id number] 01/23/2019 03:22:00 PM EST [facility] [address] [id number] NOTEPATIENT NAME: MISSAEL ALCANTARA IIATTENDING PHYSICIAN: HOSPITALISTAUTHOR: Cedrick Mcallister MDADM. DATE: 01/22/19 MR#: [id number] NOTE DATE: 01/23/19 RM#: [id number] TIME: 1526 : 64SubjectiveCC/Hx Present IllnessTransfer [facility] fractureEvents Since Last EntryPt seen and examined at bedside. Pt reports he still had some pain. He reportsthat the pain is relieved from oral dilaudid. Plan for surgical orthopedicintervention today.ObjectiveVital SignsVital Signs-24 HRS01/22 0130 0540 0758 0904Temp 98.3 98.1 98.6 98.4Pulse 71 85 79 79Resp 18 20 16 13B/P 133/71 128/73 130/73 136/76 136/76B/P MeanPulse Ox 90 95 92 92O2 DeliveryO2 Flow UeuqMmU82101/23 1400Temp 98.6Pulse 84 70Resp 16B/P 136/76 124/64B/P MeanPulse Ox 96O2 DeliveryO2 Flow UwhzMhZ0Tonphg/OutputIntake/Output Summary 24 hours01/22 1900 01/23 0700Intake Total 1400Output Total 750Balance 650Intake, Oral 1400Output, Urine 750Patient 109.769 kg 110.5 kgWeightCurrent MedicationsCefazolin Sodium (Kefzol,Ancef) 1 GM Q8H IVHydrocodone Bitart/Acetaminophen (Vicodin 5-300 MG) 1 TAB Q4HPRN PRN POHydrocodone Bitart/Acetaminophen (Vicodin 5- 300 MG) 2 TAB Q4HPRN PRN POPromethazine HCl (Phenergan) 12.5 MG Q6HPRN PRN IVMetoprolol Tartrate (Lopressor) 25 MG BID POLisinopril (Prinivil,Zestril) 10 MG DAILY POPantoprazole Sodium (Protonix) 40 MG DAILY POAtorvastatin Calcium (Lipitor) 40 MG QHS POSodium Chloride (Saline Flush Syr(5ML)) 5 ML Q12H IVMorphine HCl (MORPHINE) 2 MG Q4HPRN PRN IVSodium Chloride (Saline Flush Syr(5ML)) 5 ML QIDPRN PRN IVExamGeneral Appearance no acute distress, afebrile, alert, awake, conversant, obese, painHead atraumatic, normocephalicNeck suppleCardiovascular regular rate, no murmurRespiratory clear to auscultation, no distressAbdomen soft, non- tenderExtremities no edemaMuscoskeletal Pain at the RIGHT mayo and ankle. R Ankle is wrappedNeurological no motor deficits, no sensory deficitsResultsLaboratory DataRecent Labs-24 hours01/22 0432ChemistrySodium (136 - 147 mmol/L) 140 135 LPotassium (3.5 - 5.1 mmol/L) 4.2 4.2Chloride (99 - 110 mmol/L) 104 101Serum Bicarbonate (20 - 33 mmol/L) 32 28Anion Gap (10.0 - 20.0) 8.2 L 10.2BUN (7 - 23 mg/dL) 14 13Creatinine (0.500 - 1.300 mg/dL) 0.901 0.778Estimated GFR/1.73 m2 (mL/min) > 60 > 60Glucose (70 - 110 mg/dL) 129 H 131 HCalcium (8.3 - 10.7 mg/dL) 8.4 8.8Magnesium (1.6 - 2.6 mg/dL) 2.0 2.1CoagulationINR (0.91 - 1.09) 1.00 0.99APTT (22.9 - 32.5 SECONDS) 26.5 28.3HematologyWBC (4.0 - 10.5 x10E3/uL) 13.07 H 15.93 HRBC (4.70 - 6.00 x10E6/uL) 4.90 4.69 LHgb (14.0 - 18.0 g/dL) 14.6 14.0Hct (42.0 - 52.0 %) 44.7 42.8MCV (81.0 - 99.0 fL) 91.2 91.3MCH (27.0 - 31.0 pg) 29.8 29.9MCHC (32.7 - 35.6 g/dL) 32.7 32.7RDW (11.5 - 14.0 %) 13.3 13.2Plt Count (150 - 450 x10E3/uL) 244 211MPV (6.9 - 9.5 fl) 10.2 H 10.4 HImmature Gran % (Auto) (0.1 - 2.0 %) 0.3 0.3Neut % (Auto) (34 - 64 %) 67.4 H 73.3 HLymph % (Auto) (25 - 45 %) 21.7 L 16.1 LMono % (Auto) (1.7 - 10.6 %) 7.4 7.7Eos % (Auto) (0.4 - 7.0 %) 2.9 2.3Baso % (Auto) (0.1 - 2.0 %) 0.3 0.3Abs Immat Gran (auto) (0.0 - 0.1 x10E3/uL) 0.0 0.0Absolute Neuts (auto) (1.2 - 7.6 x10E3/uL) 8.8 H 11.7 HAbsolute Lymphs (auto) (1.0 - 3.5 x10E3/uL) 2.8 2.6Absolute Monos (auto) (0.1 - 1.0 x10E3/uL) 1.0 1.2 HAbsolute Eos (auto) (0.1 - 0.7 x10E3/uL) 0.4 0.4Absolute Basos (auto) (0.0 - 0.1 x10E3/uL) 0.0 0.1Results Reviewed labs reviewedAssessment/PlanProblem List1. Ankle fractureA&P- Resume diet once the pt returns from the surgery- Resume ASA and plavix after the surgery2. HypertensionA&P- Lisinopril 10 mg PO daily- Lopressor 25 mg PO bidAdditional NotesDVT Prophylaxis: Lovenox 40 sq dailyResuscitation status Full codeDATE SIGNED: 01/23/19 Electronically SignedTIME SIGNED: 1736 CEDRICK MCALLISTER MD Name Value Range Interpretation Code Description Data Miranda rce(s) Supporting Document(s) ID Date Data Source [id number] 01/23/2019 12:13:00 PM EST [facility] Exam Number: [id number]: 3 fluo roscopically acquired images of the right ankle wereobtained using C-arm device in the operating room during an openreduction internal fixation procedure.Electronically signed in PS360 by: Felipe Paris M.D. 01/23/201912:06 EST Reported By: Gloria PARIS M.D. Signed By: Héctor PARIS M.D. Name Value Range Interpretation Code Description Data Miranda rce(s) Supporting Document(s) ID Date Data Source [id number] 01/23/2019 11:56:00 AM EST [facility] [address] [id number] OPERATIVE REPORTPATIENT NAME: MISSAEL ALCANTARA II MR#: [id number] PHYSICIAN: SUHAIL PERERAURGEON: Herzog CASTELLON,Hemalatha DATE: 01/22/19 RM#: [id number] DATE: PATIENT : 63Operative ReportOperative ReportDATE OF PROCEDURE: [January 23, 2019]OPERATION: Open reduction internal fixation right ankle fracturePREOPERATIVE DIAGNOSIS: Bimalleolar fracture right anklePOSTOPERATIVE DIAGNOSIS: SameSurgeon: Hemalatha Greer MD.Advertising Columnist: EMIGDIO Bird.[place] Operator: Steffi CRNAAnesthesia: [General LMA]PROCEDURE: After satisfactory timeout for site and side the patient positionedsupine on operating table and underwent general anesthesia with an LMA bump wasplaced behind the right hip and proximal right leg tourniquet was applied. Theprevious splint was removed and discarded. The foot and leg and ankle wereprepped and draped in the usual fashion. Patient received preoperativeantibiotics and 1 g of tranexamic acid. The leg was exsanguinated and thetourniquet was inflated to 250 mm. Skin markings made with indelible pencil.The skin incision was made over the distal fibula for distance of approximately4 inches. Dissection was made through the subcutaneous tissue. Fracture sitewas identified and was cleaned of fracture hematoma and then was held with aclamp in an anatomically reduced position so that a an anterior to posteriorinterfragmentary screw was placed to maintain re duction. Then a neutralizationbuttress plate was placed on the lateral cortex of the fibula and wastransfixed to the proximal area with nonlocking screws into the distal segmentwith locking screws. Intraoperative images were obtained to assure that thefracture was anatomic and that the screws were proper length. Then attentionwas turned to the medial malleolus and a curvilinear incision was made over themedial malleolus to care was taken to retract the saphenous vein. The fracturewas identified and was cleaned of fracture hematoma and then was manipulated deanna anatomic reduction. While it was held reduced it was transfixed with 2 Kwires. Intraoperative images were obtained that showed that the K wires werein proper position and that the fracture was anatomically reduced and thenlength was measured at 60 mm so to 60 mm cannulated short threaded cancellusscrews were passed over the K wires and once they were properly seated the Kwires were removed final images were obtained. Fracture was anatomic andrigidly fixed. Wounds were then irrigated normal saline the subcutaneoustissue was approximated using 0 Vicryl suture and the skin was approximatedskin julian. Wounds were infiltrated locally with half percent Marcaine plainand then a sterile bulky compressive dressing was applied and the tourniquetwas deflated. A splint was placed. Patient was then brought to the recoveryroom in satisfactory stable condition. He tolerated the procedure well. Therewere no specimens. Sponge needle counts were correct. Total tourniquet timewas 35 minutes. Blood loss was negligible.Copies to Family Provider: FAUSTINO PILLAI PADATE SIGNED: 01/23/19 Electronically SignedTIME SIGNED: 1201 HEMALATHA GREER MD Name Value Range Interpretation Code Description Data Miranda rce(s) Supporting Document(s) ID Date Data Source [id number] 01/23/2019 09:03:00 AM [place] [id number] ANESTHESIA ASSESSMENTPATIENT NAME: MISSAEL ALCANTARA IIATTENDING PHYSICIAN: CEDRICK MCALLISTER, MDAUTHOR: Chip CASTELLON,[facility]. DATE: 01/22/19 MR#: [id number] NOTE DATE: 01/23/19 RM#: [id number] TIME: 916 : 64GeneralNPO since MNReason for SurgeryRIGHT ANKLE FRACTUREPlanned Operative Procedure(s)ORIF RIGHT ANKLESurgeon:HEMALATHA GREER [facility] care provider ADRIANEHeight (ft.): 5(in.): 11.00Height (Calc in Cm): 180.340Wt. k.500Calculated BMI: 34.000Past Medical/Surgical HistoryAllergiesAllergiesCoded Allergies:povidone-iodine (From BETADINE) (01/22/19)soap (From BETADINE) (01/22/19)Uncoded Allergies:PAPER TAPE (1 03/24/18)Latex Allergy NoIVP dye Allergy No (HAS HAD IVD DYE FOR BACK EVAL)Medications-CurrentCurrent MedicationsLisinopril (Prinivil,Zestril) 5MG DAILY POPantoprazole Sodium (Protonix) 40 MG DAILY POAtorvastatin Calcium (Lipitor) 40 MG QHS POSodium Chloride (Saline Flush Syr(5ML)) 5 ML Q12H IVMorphine HCl (MORPHINE) 2 MG Q4HPRN PRN IVSodium Chloride (Saline Flush Syr(5ML)) 5 ML QIDPRN PRN IVASA, 81 MGMetoprolol, 25mg bidPlavix, 75mg po qdAdditional Notes`Medical/Surgical HistoryPast Medical/Surgical HistoryMedical ProblemsAnkle fractureHypertensionMyocardial inf arctionSleep apneaTobacco abuseAdvance DirectivesAdvance Directives NoneSmoking HistorySmoking Status Current every day smoker (1 PPD)Patient has NOT used any forms of tobacco in past 30 days NoAlcohol/Recreational Drug UseAlcohol UseHow Often Less than monthlyDrug UseRecreational drug use NoDentalDental issues Intact, No issuesSurgical HistoryPrevious surgery YesSurgery 1Procedure MICRO LUMBAR DISTECTOMYAnesthesia GeneralProblems NoYear/Comments 2000Surgery 2Procedure PARTIAL COLONECTOMYAnesthesia GeneralProblems NoYear/Comments 2003Surgery 3Procedure OSTOMYAnesthesia GeneralProblems NoYear/Comments 2003Surgery 4Procedure OSTOMY REVERSALAnesthesia GeneralProblems NoYear/Comments 2003Surgery 5Procedure HERNIA REPAIRAnesthesia GeneralProblems NoYear/Comments 2004Surgery 6Procedure HERNIA REPAIRAnesthesia GeneralProblems NoYear/Comments 2005Surgery 7Procedure HEART STENTAnesthesia GeneralProblems NoYear/Comments 2018Review of SystemsRespiratoryHistory of Sleep apnea/SnoringObstructive Sleep Apnea Screen- (STOP-BANG Questionnaire)Do you SNORE Loudly YesTired,fatigued,sleepy daytime YesObserved stop breathing sleep YesTreated for high B/P YesObese/overweight YesOver 50 years YesNeck >17in male,>16in female YesMale YesRisk Assessment High RiskCardiovascularHistory of High blood pressure, High cholesterol, Heart surgery, Myocardialinfarction, StentsBeta Blockers Metoprolol (Lopressor)Taken within 24 hrs YesGastrointestinal Chronic Constipation, Diverticulosis, HERNIA-LOWER LEFTGenitourinary H/O PROSTATITISMuscular/Skeletal/Skin Arthritis, Assistive Device, Bruises, Chronic Neck/BackPain, Impaired MobilityNeurological Numbness/TinglingEars/Eyes/Nose/Throat Glasses/ContactsExamVital SignsTemperature 98.4Pulse 84Respiration 14Blood Pressure 136/76Physical ExaminationCardiovascular regular rate, no murmurRespiratory clear to auscultation, no distressAnesthesia Review & AssessmentData ReviewLaboratoryPre- Anesthesia LabsTest Result Date TimeChemistrySodium (136 - 147 mmol/L) 135 01/23 0432Potassium (3.5 - 5.1 mmol/L) 4.2 01/23 0432Chloride (99 - 110 mmol/L) 101 01/23 0432Serum Bicarbonate (20 - 33 mmol/L) 28 01/23 0432Anion Gap (10.0 - 20.0) 10.2 01/23 0432BUN (7 - 23 mg/dL) 13 01/23 0432Creatinine (0.500 - 1.300 mg/dL) 0.778 01/23 0432Estimated GFR/1.73 m2 (mL/min) > 60 01/23 0432Glucose (70 - 110 mg/dL) 131 01/23 0432Calcium (8.3 - 10.7 mg/dL) 8.8 01/23 0432Magnesium (1.6 - 2.6 mg/dL) 2.1 01/23 0432CoagulationINR (0.91 - 1.09) 0.99 01/23 0432APTT (22.9 - 32.5 SECONDS) 28.3 01/23 0432HematologyWBC (4.0 - 10.5 x10E3/uL) 15.93 01/23 0432RBC (4.70 - 6.00 x10E6/uL) 4.69 01/23 0432Hgb (14.0 - 18.0 g/dL) 14.0 01/23 0432Hct (42.0 - 52.0 %) 42.8 01/23 0432MCV (81.0 - 99.0 fL) 91.3 01/23 0432MCH (27.0 - 31.0 pg) 29.9 01/23 0432MCHC (32.7 - 35.6 g/dL) 32.7 01/23 0432RDW (11.5 - 14.0 %) 13.2 01/23 0432Plt Count (150 - 450 x10E3/uL) 211 01/23 0432MPV (6.9 - 9.5 fl) 10.4 01/23 043Immature Gran % (Auto) (0.1 - 2.0 %) 0.3 01/23 0432Neut % (Auto) (34 - 64 %) 73.3 01/23 043Lymph % (Auto) (25 - 45 %) 16.1 01/23 043Mono % (Auto) (1.7 - 10.6 %) 7.7 01/23 043Eos % (Auto) (0.4 - 7.0 %) 2.3 01/23 0432Baso % (Auto) (0.1 - 2.0 %) 0.3 01/23 0432Abs Immat Gran (auto) (0.0 - 0.1 x10E3/uL) 0.0 01/23 0432Absolute Neuts (auto) (1.2 - 7.6 x10E3/uL) 11.7 01/23 0432Absolute Lymphs (auto) (1.0 - 3.5 x10E3/uL) 2.6 01/23 0432Absolute Monos (auto) (0.1 - 1.0 x10E3/uL) 1.2 01/23 0432Absolute Eos (auto) (0.1 - 0.7 x10E3/uL) 0.4 01/23 0432Absolute Basos (auto) (0.0 - 0.1 x10E3/uL) 0.1 01/23 0432Airway AssessmentAirway AssessmentMallampati Classification IIDetention IntactMouth opening > 4.5cmJaw Protrusion Normal jaw protrusionNeck Free range of motion neckThyromental d istance > 6cmMedication ReconiliationMedication Reconciliation reviewed YesAssessment/PlanProblem List1. Ankle fracture2. Hypertension3. Sleep apnea4. Tobacco abuse5. Myocardial infarctionASA Classification 3Planned Anesthesia General Anesthesia, IV Regional/Nerve BlockBRYANT,SATHISH M.D. Electronically Signed 01/23/19 1036 Name Value Range Interpretation Code Description Data Miranda rce(s) Supporting Document(s) ID Date Data Source [id number] 01/23/2019 07:20:00 AM DORINA sigala [address] [id number] CONSULT REPORTPATIENT NAME: MISSAEL ALCANTARA II MR#: [id number] PHYSICIAN: CEDRICK MCALLISTER MDCONSULTING PHYSICIAN: Hemalatha Greer MD DATE: 01/22/19 RM#: [id number] DATE: 01/23/19 PATIENT : 63EVALUATION TIME: 724HistoryReason for consultRight ankle injuryRequested byHospitalistChief Complaint/Admit ReasonPain right ankleHistory of Presenting [id number] gentleman tripped and fell at home injuring his right ankle therewere no other injuries no loss of consciousness. [facility] and x-rays revealed a fracture dislocation ofhis right ankle. It was reduced to the emergency room under sedation.Postreduction films showed satisfactory alignment. He was transferred to thishospital for definitive treatment of that injury. He has significantcomorbidities of hypertension and coronary artery disease so he has beenadmitted to the hospitalist service for medical management.Past Medical/Surgical HistoryPast Medical/Surgical HistoryMedical ProblemsAnkle fractureHypertensionAllergiesCoded Allergies:povidone-iodine (From BETADINE) (01/22/19)soap (From BETADINE) (01/22/19)Uncoded Allergies:PAPER TAPE (01/22/19)ExamVital SignsVital Signs-24 HRS01/22 0130 0540Temp 98.3 98.1 98.6Pulse 71 85 79Resp 18 20 16B/P 133/71 128/73 130/73B/P MeanPulse Ox 90 95 92O2 DeliveryO2 Flow [id number] ExaminationGeneral Appearance no acute distress, afebrile, alert, awake, conversant, obese, painNeurological no motor deficits, no sensory deficitsSkin AssessmentSkin intactData ReviewImagingPrereduction x-rays from [facility] show that the talus was subluxedlaterally and posteriorly. Post reduction shows that the alignment issatisfactory there is a medial and lateral ankle fracture.Assessment/PlanDiagnosis/Problem1. Ankle fractureAdditional NotesAlternatives of treatment were discussed with the patient is felt that optimaltreatment of the open reduction internal fixation to restore the ankle jointand stabilize the ankle joint and he appeared to understand and agreed to theprocedure. The procedure the risks possible complications and expected resultsof all were discussed with the patient appears to understand and agrees to theprocedure he will be taken to the operating room as soon as the OR is availablethis morning.Resuscitation status Full codePlan discussed with patientCase discussed with nursing staffCopies ToCopies to Family Provider: FAUSTINO PILLAI SIGNED: 01/23/19 Electronically SignedTIME SIGNED: 724 HEMALATHA GREER MD Name Value Range Interpretation Code Description Data Miranda rce(s) Supporting Document(s) ID Date Data Source [id number] 01/23/2019 05:47:00 AM EST [facility] Name Value Range Interpretation Code Description Data Miranda rce(s) Supporting Document(s) MAGNESIUM 2.1 mg/dL 1.6-2.6 [facility] Please note the reference range change for Magnesiumeffective 01/12/19 ID Date Data Source [id number] 01/23/2019 05:47:00 AM EST [facility] Name Value Range Interpretation Code Description Data Miranda rce(s) Supporting Document(s) GLU 131 mg/dL 70-110 H [facility] Patients taking Sulfasalazine may have f alsely depressedGlucose levels. Patients taking Sulfapyridine may havefalsely elevated Glucose levels. Patients should be drawnfor Glucose before the initial administration of eitherdrug. BUN 13 mg/dL 7-23 [facility] CRE 0.778 mg/dL 0.500-1.300 [facility] GFR > 60 mL/min [facility] CHLORIDE 101 mmol/L 99-110 [facility] NA 135 mmol/L 136-147 L [facility] POTASSIUM 4.2 mmol/L 3.5-5.1 [facility] TCO2 28 mmol/L 20-33 [facility] ANION GAP 10.2 10.0-20.0 [facility] CA 8.8 mg/dL 8.3-10.7 [facility] ID Date Data Source [id number] 01/23/2019 05:39:00 AM [facility] ANTI-COAGULANTS PT.IS TAKING: None Name Value Range Interpretation Code Description Data Miranda rce(s) Supporting Document(s) APTT 28.3 SECONDS 22.9-32.5 [facility] Please note reference range change eff ective 06/30/18. ID Date Data Source [id number] 01/23/2019 05:39:00 AM EST [facility] zakiya ANTI-COAGULANTS PT.IS TAKING: None Name Value Range Interpretation Code Description Data Miranda rce(s) Supporting Document(s) INR 0.99 0.91-1.09 [facility] INR THERAPEUTIC RANGES Prophylaxis of ve nous thrombosis ] (high risk surgery) ]Treatment of venous thrombosis ]Treatment of pulmonary embolism ]Prevention of systemic embolism ] 2.0-3.0Tissue heart valves ]Acute myocardial infarction ]Valvular disease ]Atrial fibrillation ]Recurrent systemic embolism ] Mechanical prosthetic heart valves -------- 2.5-3.5 ID Date Data Source [id number] 01/23/2019 05:31:00 AM EST [facility] Name Value Range Interpretation Code Description Data Miranda rce(s) Supporting Document(s) WBC 15.93 x10E3/uL 4.0-10.5 [facility] RBC 4.69 x10E6/uL 4.70-6.00 [facility] Hemoglobin 14.0 g/dL 14.0-18.0 [facility] Hematocrit 42.8 % 42.0-52.0 [facility] MCV 91.3 fL 81.0-99.0 [facility] MCH 29.9 pg 27.0-31.0 [facility] MCHC 32.7 g/dL 32.7-35.6 [facility] RDW 13.2 % 11.5-14.0 [facility] Platelet count 211 x10E3/uL 150-450 [facility] MPV 10.4 fl 6.9-9.5 H [facility] Neutrophils 73.3 % 34-64 H [facility] Lymphocytes 16.1 % 25-45 [facility] Monocytes 7.7 % 1.7-10.6 [facility] Eosinophils 2.3 % 0.4-7.0 [facility] Basophils 0.3 % 0.1-2.0 [facility] Imm. Gran. 0.3 % 0.1-2.0 N [facility] Abs. Neutro. 11.7 x10E3/uL 1.2-7.6 [facility] Abs. Lymph. 2.6 x10E3/uL 1.0-3.5 N [facility] l Abs. [place]. 1.2 x10E3/uL 0.1-1.0 H [facility] Abs. Eosin. 0.4 x10E3/uL 0.1-0.7 N [facility] l Abs. Baso. 0.1 x10E3/uL 0.0-0.1 N [facility] Abs. Imm. Gran. 0.0 x10E3/uL 0.0-0.1 [facility] ID Date Data Source [id number] 01/22/2019 07:18:00 PM EST [facility] Name Value Range Interpretation Code Description Data Miranda rce(s) Supporting Document(s) MAGNESIUM 2.0 mg/dL 1.6-2.6 [facility] Please note the reference range change for Magnesiumeffective 01/12/19 ID Date Data Source [id number] 01/22/2019 07:18:00 PM EST [facility] Name Value Range Interpretation Code Description Data Miranda rce(s) Supporting Document(s) GLU 129 mg/dL 70-110 [facility] Patients taking Sulfasalazine may have f alsely depressedGlucose levels. Patients taking Sulfapyridine may havefalsely elevated Glucose levels. Patients should be drawnfor Glucose before the initial administration of eitherdrug. BUN 14 mg/dL 7-23 [facility] CRE 0.901 mg/dL 0.500-1.300 [facility] GFR > 60 mL/min [facility] CHLORIDE 104 mmol/L 99-110 [facility] NA 140 mmol/L 136-147 [facility] POTASSIUM 4.2 mmol/L 3.5-5.1 [facility] TCO2 32 mmol/L 20-33 [facility] ANION GAP 8.2 10.0-20.0 [facility] CA 8.4 mg/dL 8.3-10.7 [facility] ID Date Data Source [id number] 01/22/2019 07:16:00 PM EST [facility] zakiya ANTI-COAGULANTS PT.IS TAKING: None Name Value Range Interpretation Code Description Data Miranda rce(s) Supporting Document(s) APTT 26.5 SECONDS 22.9-32.5 [facility] Please note reference range change eff ective 06/30/18. ID Date Data Source [id number] 01/22/2019 07:16:00 PM EST [facility] [place] ANTI-COAGULANTS PT.IS TAKING: None Name Value Range Interpretation Code Description Data Miranda rce(s) Supporting Document(s) INR 1.00 0.91-1.09 [facility] INR THERAPEUTIC RANGES Prophylaxis of ve nous thrombosis ] (high risk surgery) ]Treatment of venous thrombosis ]Treatment of pulmonary embolism ]Prevention of systemic embolism ] 2.0-3.0Tissue heart valves ]Acute myocardial infarction ]Valvular disease ]Atrial fibrillation ]Recurrent systemic embolism ] Mechanical prosthetic heart valves -------- 2.5-3.5 ID Date Data Source [id number] 01/22/2019 07:07:00 PM EST [facility] Name Value Range Interpretation Code Description Data Miranda rce(s) Supporting Document(s) WBC 13.07 x10E3/uL 4.0-10.5 [facility] RBC 4.90 x10E6/uL 4.70-6.00 [facility] Hemoglobin 14.6 g/dL 14.0-18.0 [facility] Hematocrit 44.7 % 42.0-52.0 [facility] MCV 91.2 fL 81.0-99.0 [facility] MCH 29.8 pg 27.0-31.0 [facility] MCHC 32.7 g/dL 32.7-35.6 [facility] RDW 13.3 % 11.5-14.0 [facility] Platelet count 244 x10E3/uL 150-450 [facility] MPV 10.2 fl 6.9-9.5 [facility] Neutrophils 67.4 % 34-64 [facility] Lymphocytes 21.7 % 25-45 [facility] Monocytes 7.4 % 1.7-10.6 [facility] Eosinophils 2.9 % 0.4-7.0 [facility] Basophils 0.3 % 0.1-2.0 [facility] Imm. Gran. 0.3 % 0.1-2.0 [facility] Abs. Neutro. 8.8 x10E3/uL 1.2-7.6 [facility] Abs. Lymph. 2.8 x10E3/uL 1.0-3.5 [facility] Abs. [place]. 1.0 x10E3/uL 0.1-1.0 [facility] Abs. Eosin. 0.4 x10E3/uL 0.1-0.7 [facility] Abs. Baso. 0.0 x10E3/uL 0.0-0.1 [facility] Abs. Imm. Gran. 0.0 x10E3/uL 0.0-0.1 [facility] pital ID Date Data Source [id number] 01/22/2019 06:44:00 PM EST [facility] [address] [address]ZNSUESH AND PHYSICALPATIENT NAME: MISSAEL ALCANTARA II MR#: [id number] PHYSICIAN: HEMALATHA GREER MDAUTHOR: Cedrick Mcallister MD DATE: 01/22/19 RM#: [id number] & PHYSICAL DATE: 01/22/19 : 63EVALUATION TIME: 1903HistoryChief Complaint/Admit [facility] fractureHistory of Presenting Cubhnex10 yo M PMHx of HTN, HLD, CAD s/p 1 [facility] The pt reports that he was attempting tostep over his blanket washer and he tripped on the pull cord for the engine. Helanded awkwardly on his RIGHT ankle. He felt immediate pain and presented [facility]. At [facility] the pt was noted to have a bimalleolarfracture dislocation of the RIGHT ankle. He was splinted at [facility]. Hereceived IV pain control and [facility]. Pt reports pain rated 7/10. He describes the pain as a poundingpain.Past Medical/Surgical HistoryPast Medical/Surgical HistoryMedical ProblemsAnkle fractureHypertensionFamily history Mom ( at 72) from lung cancer. Father 83 yo from coloncancerSocial History Smoke 1 pack a day. Denies alcohol or recreational drug useReview of SystemsConstitutionalReports: Pain. Denies: Fever, Chills.SkinDenies: diaphoresis.EyesDenies: redness, discharge.RespiratoryDenies: dyspnea, shortness of breath.CardiovascularDenies: chest pain, palpitations.GastrointestinalDenies: nausea, vomiting.GenitorurinaryDenies: flank pain.MusculoskeletalReports: extremity pain.HematologyDenies: bleeding.EndocrineDenies: diabetic.NeurologicalDenies: confusion, dizziness.ExamPhysical ExaminationGeneral Appearance no acute distress, afebrile, alert, awake, conversant, facesymetricalHead atraumatic, normocephalicNeck suppleCardiovascular regular rate, normal heart soundsRespiratory clear to auscultation, no distress, aerating well, symmetricexpansionAbdomen soft, non- tenderExtremities no edemaMuscoskeletal Pain at the RIGHT mayo and ankle. R Ankle is wrappedData ReviewLaboratory DataRecent Labs-48 hours/[id number] PendingPotassium PendingChloride PendingSerum Bicarbonate PendingAnion Gap PendingBUN PendingCreatinine PendingGlucose PendingCalcium PendingMagnesium PendingCoagulationINR PendingAPTT PendingHematologyWBC PendingRBC PendingHgb PendingHct PendingMCV PendingMCH PendingMCHC PendingRDW PendingPlt Count PendingMPV PendingImmature Gran % (Auto) PendingNeut % (Auto) Pend ingLymph % (Auto) PendingMono % (Auto) PendingEos % (Auto) PendingBaso % (Auto) PendingAbs Immat Gran (auto) PendingAbsolute Neuts (auto) PendingAbsolute Lymphs (auto) PendingAbsolute Monos (auto) PendingAbsolute Eos (auto) PendingAbsolute Basos (auto) PendingAssessment/PlanDiagnosis/Problem1. Ankle fractureA&P- NPO at midnight for planned orthopedic surgical intervention in the AM of 01/23/2019- APTT and INR- CBC/BMP- Pt reports he has not taken his ASA or Plavix for the past 2 days (because heforgot)2. HypertensionA&P- Lisinopril 10 mg PO dailyAdditional NotesDVT Prophylaxis: Hold all pharmacologic med's as the pt is going for surgeryCQM VTE HISTORYVTE HISTORYPrior VTE? NoDATE SIGNED: 01/22/19 Electronically SignedTIME SIGNED: 1902 CEDRICK MCALLISTER MD Name Value Range Interpretation Code Description Data Miranda rce(s) Supporting Document(s) ID Date Data Source [id number] 01/22/2019 02:19:00 PM EST [facility] Right Ankle DATE OF EXAMINATION: 12:15 EST ANKLE AP LAT INDICATION: Obstruction COMPARISON: 09/21/2018 TECHNIQUE: AP and lateral views were obtained. FINDINGS: The patient is post closed reduction of the trimalleolar fracturedislocation of the ankle. Compared to the previous study alignment issignificantly improved. Fiberglass splint material is noted. IMPRESSION: Alignment improved. Electronically signed in PS360 by: Hemalatha Barr M.D. 01/22/2019 14:14 EST Name Value Range Interpretation Code Description Data Miranda rce(s) Supporting Document(s) ID Date Data Source [id number] 01/22/2019 11:54:00 AM EST [facility] Right Ankle DATE OF EXAMINATION: 019 10:32 EST ANKLE COMPLETE INDICATION: Trauma, Pain COMPARISON: None TECHNIQUE: 4 views were obtained. FINDINGS: There is a bimalleolar fracture dislocation of the ankle. The distaltibia is displaced anteromedially in relation to the talar dome. The talusappears intact. IMPRESSION: Bimalleolar fracture dislocation. Electronically signed in PS360 by: Hemalatha Barr M.D. 01/22/2019 11:48 EST Name Value Range Interpretation Code Description Data Miranda rce(s) Supporting Document(s) ID Date Data Source [id number] 01/22/2019 11:52:00 AM EST [facility] DATE OF EXAMINATION: 01/22/2019 10:32 ES T TIBULA-FIBULA Right Tibia and Fibula INDICATION: Trauma, Pain COMPARISON: None TECHNIQUE: 4 views were obtained. FINDINGS: There is a bimalleolar fracture dislocation. The proximal tibia andfibula are intact IMPRESSION: Bimalleolar fracture dislocation. Electronically signed in PS360 by: Hemalatha Barr M.D. 01/22/2019 11:47 EST Name Value Range Interpretation Code Description Data Miranda rce(s) Supporting Document(s) Procedure Social History Code Duration Value Status Description Data Source(s ) Smoking 02/06/2020 12:00:00 AM EST Current Smoker completed Curre nt Smoker eCW1 (Formerly [facility]) Smoking 02/06/2020 12:00:00 AM EST Current Smoker completed Curre nt Smoker eCW1 (Formerly [facility]) Smoking 02/06/2020 12:00:00 AM EST Current Smoker completed Curre nt Smoker eCW1 (Formerly [facility]) Smoking 02/06/2020 12:00:00 AM EST Current Smoker completed Curre nt Smoker eCW1 (Formerly [facility]) Smoking 02/06/2020 12:00:00 AM EST Current Smoker completed Curre nt Smoker eCW1 (Former[facility]) Smoking 02/06/2020 12:00:00 AM EST Current Smoker completed Curre nt Smoker eCW1 (Former[facility]) Smoking 01/23/2020 12:00:00 AM EST Current Smoker completed Curre nt Smoker eCW1 ([facility]) Smoking 01/23/2020 12:00:00 AM EST Current Smoker completed Curre nt Smoker eCW1 ([facility]) Smoking 01/23/2020 12:00:00 AM EST Current Smoker completed Curre nt Smoker eCW1 (Formerly [facility]) Smoking 09/21/2019 12:00:00 AM EDT Current Smoker completed Curre nt Smoker eCW1 ([facility]) Smoking 08/08/2019 12:00:00 AM EDT Current Smoker completed Curre nt Smoker eCW1 (Formerly [facility]) Vital Signs ID Date Data Source UNK Name Value Range Interpretation Code Description Data Source(s) Diastolic blood pressure 75 mm[Hg] 75 mm[Hg] eCW1 ([facility]) Systolic blood pressure 128 mm[Hg] 128 mm[Hg] e CW1 ([facility]) Body temperature 98.7 [degF] 98.7 [degF] eCW1 ( [facility]) Respiratory rate 18 /min 18 /min eCW1 ([facility]) Heart rate 76 /min 76 /min eCW1 ([facility]) Body mass index (BMI) [Ratio] 33.19 kg/m2 33.19 kg/m2 eCW1 ([facility]) Body height [in_i] eCW1 ([facility]) Body weight [lb_av] eCW1 ([facility]) Body surface area Derived from formula 2.25 m2 2.25 m2 [facility] ([facility]) Body weight 108.014 kg 108.014 kg [facility] ([facility]) Bob White body weight 166 [lb_av] 166 [lb_av] MEDEN T ([facility]) Body mass index (BMI) [Ratio] 34.2 kg/m2 34.2 k g/m2 [facility] ([facility]) Body weight 238.12 [lb_av] 238.12 [lb_av] MEDEN T ([facility]) Body height 70 [in_i] 70 [in_i] [facility] ([facility]) 5'10" Diastolic blood pressure 82 mm[Hg] 82 mm[Hg] [facility] ([facility]) Systolic blood pressure 132 mm[Hg] 132 mm[Hg] M EDENT ([facility], ) Systolic blood pressure 146 mm[Hg] 146 mm[Hg] e CW1 ([facility]) Body temperature 99.2 [degF] 99.2 [degF] eCW1 ( [facility]) Respiratory rate 18 /min 18 /min eCW1 ([facility]) Heart rate 69 /min 69 /min eCW1 ([facility]) Body mass index (BMI) [Ratio] 32.77 kg/m2 32.77 kg/m2 eCW1 (Formerly [facility]) Body height [in_i] eCW1 ([facility]) Body weight [lb_av] eCW1 ([facility]) Diastolic blood pressure 90 mm[Hg] 90 mm[Hg] eCW1 ([facility]) Diastolic blood pressure 60 mm[Hg] 60 mm[Hg] MEDENT ([facility]) sitting Systolic blood pressure 118 mm[Hg] 118 mm[Hg] M EDENT ([facility]) sitting Diastolic blood pressure 62 mm[Hg] 62 mm[Hg] MEDENT ([facility]) sitting, large cuff Systolic blood pressure 122 mm[Hg] 122 mm[Hg] M EDENT ([facility]) sitting, large cuff Respiratory rate 16 /min 16 /min MEDENT ( [facility]) Heart rate 64 /min 64 /min MEDENT ([facility] Regular Body mass index (BMI) [Ratio] 33.3 kg/m2 33.3 k g/m2 MEDENT ([facility]) Body height 70 [in_i] 70 [in_i] [facility] ([facility] 5'10" Body weight 232.00 [lb_av] 232.00 [lb_av] MEDEN T ([facility]) Diastolic blood pressure 78 mm[Hg] 78 mm[Hg] eCW1 ([facility]) Systolic blood pressure 126 mm[Hg] 126 mm[Hg] e CW1 ([facility]) Body temperature 97.3 [degF] 97.3 [degF] eCW1 ( [facility]) Respiratory rate 18 /min 18 /min eCW1 ([facility]) Heart rate 75 /min 75 /min eCW1 ([facility]) Body mass index (BMI) [Ratio] 33.19 kg/m2 33.19 kg/m2 eCW1 ([facility]) Body height [in_i] eCW1 ([facility]) Body weight [lb_av] eCW1 ([facility]) Body surface area Derived from formula 2.26 m2 2.26 m2 [facility] Body weight 109.771 kg 109.771 kg [facility] ([facility]) Bob White body weight 166 [lb_av] 166 [lb_av] MEDEN T ([facility]) Body mass index (BMI) [Ratio] 34.7 kg/m2 34.7 k g/m2 [facility] ([facility]) Body weight 242.00 [lb_av] 242.00 [lb_av] MEDEN T ([facility]) Body height 70 [in_i] 70 [in_i] [facility] ([facility]) 5'10" Diastolic blood pressure 80 mm[Hg] 80 mm[Hg] [facility] ([facility]) Systolic blood pressure 140 mm[Hg] 140 mm[Hg] M EDENT ([facility]) Diastolic blood pressure 58 mm[Hg] 58 mm[Hg] eCW1 ([facility]) Systolic blood pressure 98 mm[Hg] 98 mm[Hg] e CW1 ([facility]) Body temperature 97.2 [degF] 97.2 [degF] eCW1 ( [facility]) Respiratory rate 16 /min 16 /min eCW1 ([facility]) Heart rate 73 /min 73 /min eCW1 ([facility]) Body mass index (BMI) [Ratio] 34.31 kg/m2 34.31 kg/m2 eCW1 ([facility]) Body height [in_i] eCW1 ([facility]) Body weight 246 [lb_av] 246 [lb_av] eCW1 ([facility]) Body weight 115.214 kg 115.214 kg [facility] ([facility]) Body mass index (BMI) [Ratio] 36.4 kg/m2 36.4 k g/m2 MEDENT ([facility]) Body weight 254.00 [lb_av] 254.00 [lb_av] MEDEN T ([facility]) Body height 70 [in_i] 70 [in_i] [facility]10" Body temperature 97.9 [degF] 97.9 [degF] [facility] ([facility]) Diastolic blood pressure 78 mm[Hg] 78 mm[Hg] MEDENT ([facility]) Systolic blood pressure 140 mm[Hg] 140 mm[Hg] M EDENT ([facility]) Diastolic blood pressure 82 mm[Hg] 82 mm[Hg] eCW1 ([facility]) Systolic blood pressure 129 mm[Hg] 129 mm[Hg] e CW1 ([facility]) Body temperature 98.7 [degF] 98.7 [degF] eCW1 ( [facility]) Respiratory rate 18 /min 18 /min eCW1 ([facility]) Heart rate 72 /min 72 /min eCW1 ([facility]) Body mass index (BMI) [Ratio] 34.72 kg/m2 34.72 kg/m2 eCW1 ([facility]) Body height [in_i] eCW1 ([facility]) Body weight [lb_av] eCW1 ([facility]) Deprecated Oxygen saturation in Capillary blood by Oximetry 97 % 97 % eCW1 ([facility]) Respiratory rate 18 /min 18 /min eCW1 ([facility]) Heart rate 95 /min 95 /min eCW1 ([facility]) Body temperature 97.4 [degF] 97.4 [degF] eCW1 ( [facility]) Body weight Measured 240 [lb_av] 240 [lb_av] eC W1 ([facility]) Diastolic blood pressure--sitting 68 mm[Hg] 68 mm[Hg] MEDENT ([facility]) large cuff/Ra Systolic blood pressure--sitting 122 mm[Hg] 122 mm[Hg] MEDENT ([facility]) large cuff/Ra Heart rate 76 /min 76 /min MEDENT ([facility]) Body mass index (BMI) [Ratio] 35.1 kg/m2 35.1 k g/m2 MED[facility] ([facility]) Body height 70 [in_i] 70 [in_i] [facility] ([facility] 5'10" Body weight 245.00 [lb_av] 245.00 [lb_av] MEDEN T ([facility]) Diastolic blood pressure 80 mm[Hg] 80 mm[Hg] eCW1 ([facility]) Systolic blood pressure 150 mm[Hg] 150 mm[Hg] e CW1 ([facility]) Deprecated Oxygen saturation in Capillary blood by Oximetry 98 % 98 % eCW1 ([facility]) Respiratory rate 18 /min 18 /min eCW1 ([facility]) Heart rate 82 /min 82 /min eCW1 ([facility]) Body temperature 98.0 [degF] 98.0 [degF] eCW1 ( [facility]) Body weight Measured 240 [lb_av] 240 [lb_av] eC W1 ([facility]) Deprecated Oxygen saturation in Capillary blood by Oximetry 98 % 98 % eCW1 ([facility]) Respiratory rate 18 /min 18 /min eCW1 ([facility]) Heart rate 79 /min 79 /min eCW1 ([facility]) Body temperature 97.3 [degF] 97.3 [degF] eCW1 ( [facility]) Body weight Measured 240 [lb_av] 240 [lb_av] eC W1 ([facility]) Diastolic blood pressure 77 mm[Hg] 77 mm[Hg] eCW1 ([facility]) Systolic blood pressure 150 mm[Hg] 150 mm[Hg] e CW1 ([facility]) Body temperature 98.1 [degF] 98.1 [degF] eCW1 ( [facility]) Respiratory rate 18 /min 18 /min eCW1 ([facility]) Heart rate 95 /min 95 /min eCW1 ([facility]) Body mass index (BMI) [Ratio] 33.47 kg/m2 33.47 kg/m2 eCW1 ([facility]) Body height [in_us] eCW1 ([facility]) Body weight Measured [lb_av] eCW1 ([facility]) ID Date Data Source [id number] 02/13/2019 07:05:00 [facility] Name Value Range Interpretation Code Description Data Source(s) WEIGHT 110.5 kilos 110.5 kilos [facility] HEIGHT 180.34 centimeters 180.34 centimeter [facility] WEIGHT 109.469280 kilos 109.569014 kilos [facility] HEIGHT 180.34 centimeters 180.34 centimeter [facility] Patient Treatment Plan of Care Planned Activity Planned Date Details Description Data Source (s) topiramate 25 MG Oral Tablet 02/08/2020 12:00:00 AM EST eCW1 ([facility]) topiramate 25 MG Oral Tablet 02/08/2020 12:00:00 AM EST eCW1 ([facility]) topiramate 25 MG Oral Tablet 02/08/2020 12:00:00 AM EST eCW1 ([facility]) topiramate 25 MG Oral Tablet 02/08/2020 12:00:00 AM EST eCW1 ([facility]) topiramate 25 MG Oral Tablet 02/08/2020 12:00:00 AM EST eCW1 ([facility]) Lancing Device - 01/23/2020 12:00:00 AM EST eCW1 ([facility]) Glucometer 01/23/2020 12:00:00 AM EST e CW1 ([facility]) Isopropyl Alcohol 0.7 ML/ML Medicated Pad 01/23/2020 12:00:00 AM ES T eCW1 ([facility]) Simvastatin 40 MG Oral Tablet 01/23/2020 12:00:00 AM EST eCW1 ([facility]) Lancets - 01/23/2020 12:00:00 AM EST e CW1 ([facility]) Blood Glucose Test - 01/23/2020 12:00:00 AM EST eCW1 ([facility]) Lancing Device - 01/23/2020 12:00:00 AM EST eCW1 ([facility]) Glucometer 01/23/2020 12:00:00 AM EST e CW1 ([facility]) Isopropyl Alcohol 0.7 ML/ML Medicated Pad 01/23/2020 12:00:00 AM ES T eCW1 ([facility]) Simvastatin 40 MG Oral Tablet 01/23/2020 12:00:00 AM EST eCW1 ([facility]) Lancets - 01/23/2020 12:00:00 AM EST e CW1 ([facility]) Blood Glucose Test - 01/23/2020 12:00:00 AM EST eCW1 ([facility]) Lancing Device - 01/23/2020 12:00:00 AM EST eCW1 ([facility]) Glucometer 01/23/2020 12:00:00 AM EST e CW1 ([facility]) Isopropyl Alcohol 0.7 ML/ML Medicated Pad 01/23/2020 12:00:00 AM ES T eCW1 ([facility]) Simvastatin 40 MG Oral Tablet 01/23/2020 12:00:00 AM EST eCW1 ([facility]) Lancets - 01/23/2020 12:00:00 AM EST e CW1 ([facility]) Blood Glucose Test - 01/23/2020 12:00:00 AM EST eCW1 ([facility]) Metformin hydrochloride 500 MG Oral Tablet 06/19/2019 12:00:00 AM E DT eCW1 ([facility]) Metformin hydrochloride 500 MG Oral Tablet 06/19/2019 12:00:00 AM E DT eCW1 ([facility]) Metformin hydrochloride 500 MG Oral Tablet 06/19/2019 12:00:00 AM E DT eCW1 ([facility]) Metformin hydrochloride 500 MG Oral Tablet 06/19/2019 12:00:00 AM E DT eCW1 ([facility]) 200 ACTUAT Albuterol 0.09 MG/ACTUAT Metered Dose Inhal er [ProAir] 05/18/2019 12:00:00 AM EDT eCW1 (Formerly [facility]) 200 ACTUAT Albuterol 0.09 MG/ACTUAT Metered Dose Inhal er [ProAir] 05/18/2019 12:00:00 AM EDT eCW1 (Formerly [facility]) Cyclobenzaprine hydrochloride 5 MG Oral Tablet 05/18/2019 12:00:00 AM EDT eCW1 ([facility]) 200 ACTUAT Albuterol 0.09 MG/ACTUAT Metered Dose Inhal er [ProAir] 05/18/2019 12:00:00 AM EDT eCW1 (Formerly [facility]) 12 HR Guaifenesin 600 MG Extended Release Oral Tablet [Mucinex] 05/18/2019 12:00:00 AM EDT eCW1 ([facility]) Cyclobenzaprine hydrochloride 5 MG Oral Tablet 05/18/2019 12:00:00 AM EDT eCW1 ([facility]) 200 ACTUAT Albuterol 0.09 MG/ACTUAT Metered Dose Inhal er [ProAir] 05/18/2019 12:00:00 AM EDT eCW1 ([facility]) 200 ACTUAT Albuterol 0.09 MG/ACTUAT Metered Dose Inhal er [ProAir] 05/18/2019 12:00:00 AM EDT eCW1 (Formerly [facility]) Sulfamethoxazole 800 MG / Trimethoprim 160 MG Oral Tab let [Bactrim] 02/27/2019 12:00:00 AM EST eCW1 (Formerly [facility]) Culturelle - 02/27/2019 12:00:00 AM EST e CW1 ([facility]) Metronidazole 500 MG Oral Tablet 02/22/2019 12:00:00 AM EST eCW1 ([facility]) Omeprazole 20 MG Delayed Release Oral Capsule 02/22/2019 12:00:00 A M EST eCW1 ([facility]) Doxycycline Monohydrate 100 MG Oral Tablet 02/22/2019 12:00:[address] eCW1 ([facility]) Bismuth Subsalicylate 262 MG 02/21/2019 12:00:00 AM EST eCW1 ([facility]) Omeprazole 20 MG Delayed Release Oral Capsule 02/20/2019 12:00:00 A M EST eCW1 ([facility]) Clarithromycin 500 MG Oral Tablet 02/20/2019 12:00:00 AM EST eCW1 ([facility]) Amoxicillin 500 MG Oral Tablet 02/20/2019 12:00:00 AM EST eCW1 ([facility])
--- NOTE | 2020-03-19 11:40 | ROOR ---
Patient Name: Corey Granados Procedure Date: 03/19/2020 10:40 AM Date of : 1965 Age: 55 Room: [facility] Gender: Male Note Status: Finalized Procedure: Colonoscopy Indications: Screening for colorectal malignant neoplasm, Last colonoscopy: date unknown Providers: Benjamin Garcia MD Referring MD: [email or web address] [id number] Requesting Provider: Medicines: Monitored Anesthesia Care Complications: No immediate complications. Procedure: Pre-Anesthesia Assessment: - Prior to the procedure, a History and Physical was performed, and patient medications and allergies were reviewed. The patient is competent. The risks and benefits of the procedure and the sedation options and risks were discussed with the patient. All questions were answered and informed consent was obtained. Patient identification and proposed procedure were verified by the physician, the nurse and the clinical research coordinator in the procedure room. Mental Status Examination: alert and oriented. Prophylactic Antibiotics: The patient does not require prophylactic antibiotics. Prior Anticoagulants: The patient has taken no previous anticoagulant or antiplatelet agents. ASA Grade Assessment: III - A patient with severe systemic disease. After reviewing the risks and benefits, the patient was deemed in satisfactory condition to undergo the procedure. The anesthesia plan was to use monitored anesthesia care (MAC). Immediately prior to administration of medications, the patient was re-assessed for adequacy to receive sedatives. The heart rate, respiratory rate, oxygen saturations, blood pressure, adequacy of pulmonary ventilation, and response to care were monitored throughout the procedure. The physical status of the patient was re-assessed after the procedure. The Colonoscope was introduced through the anus and advanced to the terminal ileum, with identification of the appendiceal orifice and IC valve. The colonoscopy was performed without difficulty. The patient tolerated the procedure well. The quality of the bowel preparation was excellent. Findings: The perianal and digital rectal examinations were normal. A 2 mm polyp was found in the proximal ascending colon. The polyp was sessile. The polyp was removed with a jumbo cold forceps. Resection and retrieval were complete. Three sessile polyps were found in the proximal transverse colon and hepatic flexure. The polyps were 4 to 6 mm in size. These polyps were removed with a cold snare. Resection and retrieval were complete. Estimated blood loss was minimal. Multiple medium-mouthed diverticula were found in the sigmoid colon and descending colon. There was evidence of a prior end-to-end colo-rectal anastomosis in the recto-sigmoid colon. This was characterized by healthy appearing mucosa. The anastomosis was traversed. Impression: - One 2 mm polyp in the proximal ascending colon, removed with a jumbo cold forceps. Resected and retrieved. - Three 4 to 6 mm polyps in the proximal transverse colon and at the hepatic flexure, removed with a cold snare. Resected and retrieved. - Diverticulosis in the sigmoid colon and in the descending colon. - End-to-end colo-rectal anastomosis, characterized by healthy appearing mucosa. Recommendation: - Discharge patient to home. - Resume previous diet. - Continue present medications. - Await pathology results. - Telephone my office for pathology results in 1 week. Procedure Code(s): --- Professional --- 67135, Colonoscopy, flexible; with removal of tumor(s), polyp(s), or other lesion(s) by snare technique 97267, 59, Colonoscopy, flexible; with biopsy, single or multiple Diagnosis Code(s): --- Professional --- K63.5, Polyp of colon Z12.11, Encounter for screening for malignant neoplasm of colon Z98.0, Intestinal bypass and anastomosis status K57.30, Diverticulosis of large intestine without perforation or abscess without bleeding CPT copyright 2019 [employer]. All rights reserved. The codes documented in this report are preliminary and upon butter wrapper review may be revised to meet current compliance requirements. Benjamin Garcia MD Benjamin Garcia MD 03/19/2020 11:39:46 AM Electronically signed by Benjamin Garcia MD Number of Addenda: 0 Note Initiated On: 03/19/2020 10:40 AM Estimated Blood Loss: Estimated blood loss was minimal.
[2020-03-19 11:50] VITALS: BP 141/82
== END 2020-03-19 11:59 | disposition home or self-care (01) ==
LOC: M OPP 09:43
PROVIDERS: ATTEND Surgery
DX: Z12.11 Encounter for screening for malignant neoplasm of colon (principal); D12.2 Benign neoplasm of ascending colon; D12.3 Benign neoplasm of transverse colon; K57.30 Diverticulosis of large intestine without perforation or abscess without bleeding; I25.2 Old myocardial infarction; I10 Essential (primary) hypertension; E78.5 Hyperlipidemia, unspecified; E11.9 Type 2 diabetes mellitus without complications; M19.90 Unspecified osteoarthritis, unspecified site; J44.9 Chronic obstructive pulmonary disease, unspecified; F17.210 Nicotine dependence, cigarettes, uncomplicated; Z98.0 Intestinal bypass and anastomosis status; Z95.5 Presence of coronary angioplasty implant and graft; Z88.3 Allergy status to other anti-infective agents; Z91.09 Other allergy status, other than to drugs and biological substances; Z79.82 Long term (current) use of aspirin; Z79.84 Long term (current) use of oral hypoglycemic drugs; Z79.899 Other long term (current) drug therapy

== ENCOUNTER 2020-08-12 14:12 | Emergency (ER) | payer MEDICARE, SELFPAY ==
[~2020-08-12] VITALS: Ht 177.8 cm; Wt 106.8 kg
[~2020-08-12 14:12] MED LIST changes: -LIDOCAINE 2% 100MG/5ML SDV (FOR ANES.) As Ordered ONE; -LISI-542 PO; +LISI-898 PO; +LISI10TA22 PO; -LISI10TA4 PO; -NS 1,000 ML IV ONE; -propofoL 200 MG/20 ML VIAL As Ordered ONE
[2020-08-12 14:13] VITALS: BP 138/85
[2020-08-12] MEDS ORDERED: DOK1CAP7 (14:22)
== END 2020-08-12 17:00 | disposition left against medical advice (07) ==
LOC: M ED 14:12
DX: Z53.21 Procedure and treatment not carried out due to patient leaving prior to being seen by health care provider (principal)

== ENCOUNTER 2020-12-27 14:12 | Outpatient (CLI) | payer MEDICARE ==
[~2020-12-27] VITALS: Ht 180.3 cm; Wt 102.7 kg
[~2020-12-27 14:12] MED LIST changes: +ALBUTEROL 90 MCG/ACT 8GM HFA INHALER INH PRN; +ALBUTEROL SULFATE 2.5 MG/0.5 ML INH NEB SOLN INH PRN; +DOK1CAP4; +EPINEPHrine INJ 1 MG/ML 1ML AMP IM PRN; +NS 1,000 ML IV SCH; +diphenhydrAMINE 50MG/ML VIAL (J1200) IV PRN; +methylPREDNISolone 125MG 2ML VIAL IV PRN
[2020-12-27] MEDS ORDERED: ACETAMINOPHEN TAB 650MG DOSE (2X325MG) PO PRN (14:50)
[2020-12-27 15:02] VITALS: BP 162/80
[2020-12-27] MEDS ORDERED: BAMLANIVIMAB 700 MG, ETESEVIMAB 1,400 MG in NS 250 ML IV ONE (15:30)
[2020-12-27 15:32] VITALS: BP 163/90
[2020-12-27 16:10] VITALS: BP 183/90
== END 2020-12-27 17:10 | disposition home or self-care (01) ==
LOC: M OPCLI4PR 14:12
PROVIDERS: ATTEND Physician Assistant
DX: U07.1 COVID-19 (principal); Z88.8 Allergy status to other drugs, medicaments and biological substances

== ENCOUNTER 2021-01-29 21:52 | Emergency (ER) | payer MEDICARE ==
[~2021-01-29] VITALS: Ht 177.8 cm; Wt 100.0 kg
[~2021-01-29 21:52] MED LIST changes: -ALBUTEROL 90 MCG/ACT 8GM HFA INHALER INH PRN; -ALBUTEROL SULFATE 2.5 MG/0.5 ML INH NEB SOLN INH PRN; -EPINEPHrine INJ 1 MG/ML 1ML AMP IM PRN; -LISI-898 PO; +LISI5TAB11 PO; -NS 1,000 ML IV SCH; -TOPI25CA3 PO; +TOPI25CA5 PO; -diphenhydrAMINE 50MG/ML VIAL (J1200) IV PRN; -methylPREDNISolone 125MG 2ML VIAL IV PRN
[2021-01-30] MEDS ORDERED: AUGM875T28 PO (00:09)
[2021-01-30 01:41] VITALS: BP 150/80
== END 2021-01-30 01:43 | disposition home or self-care (01) ==
LOC: M ED 21:52
DX: S60.571A Other superficial bite of hand of right hand, initial encounter (principal); S09.90XA Unspecified injury of head, initial encounter; I10 Essential (primary) hypertension; E11.9 Type 2 diabetes mellitus without complications; I25.2 Old myocardial infarction; F17.200 Nicotine dependence, unspecified, uncomplicated; Y04.1XXA Assault by human bite, initial encounter; Z88.8 Allergy status to other drugs, medicaments and biological substances; Z91.048 Other nonmedicinal substance allergy status; Y07.499 Other family member, perpetrator of maltreatment and neglect; Z79.01 Long term (current) use of anticoagulants; Y92.9 Unspecified place or not applicable; Y93.9 Activity, unspecified; Y99.9 Unspecified external cause status

== ENCOUNTER → 2021-11-14 | Outpatient (REF) | payer MEDICARE ==
[~2021-11-14] MED LIST changes: +AUGM875T28 PO
[2021-11-14 13:51] LABS: BASO # 0.1 10^3/uL (0.0-0.2); BASO % 0.9 % (0.0-1.0); EOS # 0.4 10^3/uL (0.0-0.5); EOS % 3.9 % (0.0-3.0); HEMATOCRIT 47.9 % (42.0-52.0); HEMOGLOBIN 15.6 g/dl (13.5-17.5); LYMPH # 2.3 10^3/uL (1.5-5.0); LYMPH % 22.8 % (24.0-44.0); MEAN CORPUSCULAR HEMOGLOBIN 30.2 pg (27.0-33.0); MEAN CORPUSCULAR HGB CONC 32.6 g/dl (32.0-36.5); MEAN CORPUSCULAR VOLUME 92.6 fl (80.0-96.0); MONO # 0.7 10^3/uL (0.0-0.8); MONO % 7.4 % (2.0-8.0); NEUTROPHILS # 6.5 10^3/uL (1.5-8.5); NEUTROPHILS % 64.5 % (36.0-66.0); PLATELET COUNT, AUTOMATED 237 10^3/uL (150-450); RED BLOOD COUNT 5.17 10^6/uL (4.30-6.10)
[2021-11-14 14:19] LABS: HEMOGLOBIN A1c 6.7 %
[2021-11-14 14:37] LABS: MALB URINE SIEMENS 11.8 MG/L; MAU/CREAT RATIO 4.2 MCG/MG (0.0-30.0)
[2021-11-14 14:46] LABS: ALBUMIN 3.9 GM/DL (3.2-5.2); ALT/SGPT 37 U/L (12-78); BILIRUBIN,TOTAL 0.7 MG/DL (0.2-1.0); BLOOD UREA NITROGEN 11 MG/DL (7-18); CALCIUM LEVEL 8.7 MG/DL (8.5-10.1); CARBON DIOXIDE LEVEL 28 MEQ/L (21-32); CHLORIDE LEVEL 105 MEQ/L (98-107); CHOLESTEROL LEVEL 146 MG/DL (<200); CHOLESTEROL RISK RATIO 4.171 (<5); GLOMERULAR FILTRATION RATE > 60.0 (>56); GLUCOSE, FASTING 135 MG/DL (70-100); HDL CHOLESTEROL 35 MG/DL (>40); LDL CHOLESTEROL 92 MG/DL (<100); NON-HDL-C 111 MG/DL; POTASSIUM SERUM 4.2 MEQ/L (3.5-5.1); SODIUM LEVEL 139 MEQ/L (136-145); THYROID STIMULATING HORMONE 0.471 uIU/ML (0.358-3.740); TOTAL PROTEIN 6.3 GM/DL (6.4-8.2); TRIGLYCERIDES LEVEL 95 MG/DL (<150)
== END ==
LOC: M SFHCCLAY 07:05
PROVIDERS: ATTEND Physician Assistant
DX: E11.69 Type 2 diabetes mellitus with other specified complication (principal); Z12.5 Encounter for screening for malignant neoplasm of prostate
CPT/HCPCS: 80053; 80061; 82043; 83036; 84443; 85025; G0103

== ENCOUNTER 2022-01-10 17:24 | Emergency (ER) | payer MEDICARE ==
[~2022-01-10] VITALS: Ht 177.8 cm; Wt 102.4 kg
[2022-01-10 18:24] LABS: BASO # 0.1 10^3/uL (0.0-0.2); BASO % 0.6 % (0.0-1.0); EOS # 0.3 10^3/uL (0.0-0.5); EOS % 2.3 % (0.0-3.0); HEMATOCRIT 45.1 % (42.0-52.0); HEMOGLOBIN 15.5 g/dl (13.5-17.5); LYMPH # 2.6 10^3/uL (1.5-5.0); LYMPH % 21.2 % (24.0-44.0); MEAN CORPUSCULAR HEMOGLOBIN 30.8 pg (27.0-33.0); MEAN CORPUSCULAR HGB CONC 34.4 g/dl (32.0-36.5); MEAN CORPUSCULAR VOLUME 89.5 fl (80.0-96.0); MONO # 0.8 10^3/uL (0.0-0.8); MONO % 6.1 % (2.0-8.0); NEUTROPHILS # 8.6 10^3/uL (1.5-8.5); NEUTROPHILS % 69.3 % (36.0-66.0); PLATELET COUNT, AUTOMATED 246 10^3/uL (150-450); RED BLOOD COUNT 5.04 10^6/uL (4.30-6.10); WHITE BLOOD COUNT 12.4 10^3/uL (4.0-10.0)
[2022-01-10] MEDS ORDERED: NS 1,000 ML IV ONE (19:05)
[2022-01-10] MEDS ORDERED: ONDANSETRON 4MG 2ML VIAL IV ONE (19:05)
[2022-01-10] MEDS ORDERED: KETOROLAC 30 MG/ML 1ML VIAL IV ONE (19:05)
[2022-01-10 19:09] LABS: ALBUMIN 3.8 GM/DL (3.2-5.2); ALT/SGPT 33 U/L (12-78); BILIRUBIN,DIRECT 0.1 MG/DL (0.0-0.2); BILIRUBIN,TOTAL 0.5 MG/DL (0.2-1.0); BLOOD UREA NITROGEN 12 MG/DL (7-18); CALCIUM LEVEL 8.6 MG/DL (8.5-10.1); CARBON DIOXIDE LEVEL 28 MEQ/L (21-32); CHLORIDE LEVEL 106 MEQ/L (98-107); CREATININE FOR GFR 0.75 MG/DL (0.70-1.30); GLOMERULAR FILTRATION RATE > 60.0 (>56); GLUCOSE, FASTING 128 MG/DL (70-100); LIPASE 99 U/L (73-393); POTASSIUM SERUM 3.7 MEQ/L (3.5-5.1); SODIUM LEVEL 141 MEQ/L (136-145); TOTAL PROTEIN 6.6 GM/DL (6.4-8.2)
[2022-01-10] MEDS ORDERED: ISOVUE-370 76% 100ML VIAL As Ordered ONE (19:16)
[2022-01-10] MEDS ORDERED: metroNIDAZOLE (FLAGYL) 500MG TABLET PO ONE (22:20)
[2022-01-10] MEDS ORDERED: CIPROFLOXACIN 500MG TABLET PO ONE (22:20)
[2022-01-10] MEDS ORDERED: CIPR-249 PO (22:39)
[2022-01-10] MEDS ORDERED: METR-265 PO (22:39)
[2022-01-10 22:49] VITALS: BP 147/76
== END 2022-01-10 22:51 | disposition home or self-care (01) ==
LOC: M ED 17:24
DX: K57.32 Diverticulitis of large intestine without perforation or abscess without bleeding (principal); I25.2 Old myocardial infarction; I10 Essential (primary) hypertension; J44.9 Chronic obstructive pulmonary disease, unspecified; Z91.048 Other nonmedicinal substance allergy status; Z79.51 Long term (current) use of inhaled steroids; Z79.84 Long term (current) use of oral hypoglycemic drugs; Z79.899 Other long term (current) drug therapy
CPT/HCPCS: 71045; 74177; 80048; 80076; 83690; 85025; 93005; 96361; 96374; 96375; 99284; J1885; J2405; Q9967

== ENCOUNTER → 2022-02-01 | Outpatient (CLI) | payer MEDICARE ==
[~2022-02-01] MED LIST changes: +CIPR-249 PO; +METR-265 PO
== END ==
LOC: M LABSMTC 11:43
PROVIDERS: ATTEND Anesthesiology
DX: Z01.812 Encounter for preprocedural laboratory examination (principal); Z11.52 Encounter for screening for COVID-19

== ENCOUNTER 2022-02-03 06:12 | Day surgery (SDC) | payer MEDICARE ==
[~2022-02-03] VITALS: Ht 177.8 cm; Wt 102.5 kg
[~2022-02-03 06:12] MED LIST changes: +ceFAZolin SOD 2 GM in IV 1 EA IV ONE
[2022-02-03] MEDS ORDERED: LR 1,000 ML IV SCH (06:15)
[2022-02-03] MEDS ORDERED: fentaNYL 100 MCG/2 ML INJECTION As Ordered ONE (07:09)
[2022-02-03] MEDS ORDERED: propofoL 200 MG/20 ML VIAL As Ordered ONE ×2 (07:09→11:00)
[2022-02-03] MEDS ORDERED: ROCURONIUM BROMIDE 50 MG/5 ML VIAL As Ordered ONE ×2 (07:09→08:39)
[2022-02-03] MEDS ORDERED: SUGAMMADEX SODIUM 500 MG/5 ML VIAL (BRIDION) As Ordered ONE (07:09)
[2022-02-03] MEDS ORDERED: MIDAZOLAM INJ 2MG/2ML VIAL (J2250 PER 1MG) As Ordered ONE (07:09)
[2022-02-03] MEDS ORDERED: LIDOCAINE 2% 100MG/5ML SDV (FOR ANES.) As Ordered ONE (07:09)
[2022-02-03] MEDS ORDERED: ONDANSETRON 4MG 2ML VIAL As Ordered ONE (07:09)
[2022-02-03] MEDS ORDERED: BUPIVACAINE LIPOSOME/PF 1.3% 20ML VIAL (13.3MG/ML)(EXPAREL) As Ordered ONE (07:10)
[2022-02-03] MEDS ORDERED: BUPIVACAINE/EPIN 0.25% 30ML VIAL As Ordered ONE (07:10)
[2022-02-03] MEDS ORDERED: BUPIVACAINE HCL 0.25% 10ML VIAL As Ordered ONE (07:10)
[2022-02-03] MEDS ORDERED: METOPROLOL TART 25 MG TABLET PO ONE (07:15)
[2022-02-03] MEDS ORDERED: ACETAMINOPHEN 1000MG 100ML IV BAG As Ordered ONE (08:47)
[2022-02-03] MEDS ORDERED: KETOROLAC 60MG 2ML VIAL As Ordered ONE (10:02)
[2022-02-03] MEDS ORDERED: ONDANSETRON 4MG 2ML VIAL IV PRN (10:10)
[2022-02-03] MEDS: fentaNYL 100 MCG/2 ML INJECTION IV PRN ×4 (10:48→11:34)
[2022-02-03] MEDS: oxyCODONE 5MG TAB PO PRN ×2 (10:51→11:20)
[2022-02-03 13:59] VITALS: BP 123/74
== END 2022-02-03 14:34 | disposition home or self-care (01) ==
LOC: M SDC 06:12
PROVIDERS: ATTEND Surgery
DX: K43.2 Incisional hernia without obstruction or gangrene (principal); K66.0 Peritoneal adhesions (postprocedural) (postinfection); I10 Essential (primary) hypertension; I25.10 Atherosclerotic heart disease of native coronary artery without angina pectoris; E11.9 Type 2 diabetes mellitus without complications; M51.9 Unspecified thoracic, thoracolumbar and lumbosacral intervertebral disc disorder; I25.2 Old myocardial infarction; E78.00 Pure hypercholesterolemia, unspecified; K57.92 Diverticulitis of intestine, part unspecified, without perforation or abscess without bleeding; J44.9 Chronic obstructive pulmonary disease, unspecified; F17.210 Nicotine dependence, cigarettes, uncomplicated; Z95.5 Presence of coronary angioplasty implant and graft; Z91.048 Other nonmedicinal substance allergy status; Z88.8 Allergy status to other drugs, medicaments and biological substances; Z79.899 Other long term (current) drug therapy; Z79.84 Long term (current) use of oral hypoglycemic drugs; Z79.2 Long term (current) use of antibiotics
CPT/HCPCS: 49654; C1781; C9290; J0131; J0690; J1100; J1885; J2250; J2405; J3010; S2900

== ENCOUNTER → 2022-03-12 | Outpatient (CLI) | payer MEDICARE ==
[~2022-03-12] MED LIST changes: -ceFAZolin SOD 2 GM in IV 1 EA IV ONE
== END ==
LOC: M CLY 08:42
PROVIDERS: ATTEND Physician Assistant
DX: M54.41 Lumbago with sciatica, right side (principal); M47.896 Other spondylosis, lumbar region

== ENCOUNTER 2022-03-20 10:28 | Emergency (ER) | payer MEDICARE ==
[~2022-03-20] VITALS: Ht 177.8 cm; Wt 106.2 kg
[~2022-03-20 10:28] MED LIST changes: -CYCL-707; -METF-839 PO; -METO25TA4 PO; -PREG150C; -SIMV40TA20; -TOPI25TA10
[2022-03-20] MEDS ORDERED: CYCL-707 (10:39)
[2022-03-20] MEDS ORDERED: LISI10TA22 PO (10:39)
[2022-03-20] MEDS ORDERED: METF-839 PO (10:39)
[2022-03-20] MEDS ORDERED: PREG150C (10:39)
[2022-03-20] MEDS ORDERED: TOPI25TA10 (10:39)
[2022-03-20] MEDS ORDERED: METO25TA4 PO (10:39)
[2022-03-20] MEDS ORDERED: SIMV40TA20 (10:39)
[2022-03-20 15:02] VITALS: BP 172/86
== END 2022-03-20 15:37 | disposition left against medical advice (07) ==
LOC: M ED 10:28
DX: M54.50 Low back pain, unspecified (principal); Z53.9 Procedure and treatment not carried out, unspecified reason; R32 Unspecified urinary incontinence; I25.2 Old myocardial infarction; I10 Essential (primary) hypertension; J44.9 Chronic obstructive pulmonary disease, unspecified; F17.200 Nicotine dependence, unspecified, uncomplicated; Z88.3 Allergy status to other anti-infective agents; Z91.89 Other specified personal risk factors, not elsewhere classified
CPT/HCPCS: 81000; 81002; 81015; 87086; 99284; G0463

== ENCOUNTER → 2022-03-20 | Outpatient (REF) | payer MEDICARE ==
[~2022-03-20] MED LIST changes: +CYCL-707; +METF-839 PO; +METO25TA4 PO; +PREG150C; +SIMV40TA20; +TOPI25TA10
== END ==
LOC: M SFHCCLAY 08:55
PROVIDERS: ATTEND Physician Assistant
DX: M54.41 Lumbago with sciatica, right side (principal); Z79.899 Other long term (current) drug therapy

== ENCOUNTER → 2022-03-27 | Outpatient (CLI) | payer MEDICARE, OTHER ==
[~2022-03-27] MED LIST changes: +CYCL-707; +METF-839 PO; +METO25TA4 PO; +PREG150C; +SIMV40TA20; +TOPI25TA10
== END ==
LOC: M RAD 12:23
PROVIDERS: ATTEND Orthopaedic Surgery
DX: M51.36 Other intervertebral disc degeneration, lumbar region (principal); M47.27 Other spondylosis with radiculopathy, lumbosacral region